=== PATIENT | female | born 1955 | race American Indian/Alaskan Native ===

== ENCOUNTER 2017-06-02 14:39 | Emergency (ER) | payer MEDICARE ==
[~2017-06-02 14:39] MED LIST: PROVERA PO ONE
[2017-06-02 16:52] LABS: Mean Corpuscular HGB Conc 30 % (30-34); Mean Corpuscular Hemoglobin 27 pg (28-32); Mean Corpuscular Volume 90 fl (79-97); Platelet Count 294 K/mm3 (140-440); Red Blood Count 3.88 M/mm3 (3.65-5.03); Red Cell Distribution Width 19.5 % (13.2-15.2)
[2017-06-02 17:24] LABS: Hematocrit 34.8 % (30.3-42.9); Hemoglobin 10.4 gm/dl (10.1-14.3)
--- NOTE | 2017-06-02 20:11 | Emergency Department Report ---
ED Female HPI - General Chief complaint: Vaginal Bleeding Stated complaint: VAGINAL BLEEDING Time Seen by Provider: 06/02/17 20:00 Source: patient Mode of arrival: Wheelchair Limitations: No Limitations - History of Present Illness Initial comments: 62-year-old female past medical history CHF, bilateral nephrectomy ESRD hypertension on dialysis Saturday presents with complaint of heavy vaginal bleeding which started abruptly earlier this afternoon. Patient states she was eating and restaurant when suddenly she developed spontaneous vaginal bleeding. States that she started soaking through her pants one home continued to pass some clots and had some heavy vaginal bleeding which is why she came to the emergency department. Patient states that bleeding has subsided somewhat since earlier this afternoon. Patient is awake alert and oriented 3 not in acute distress denies shortness of breath chest pain or abdominal pain at this time. Patient does not make any urine states she has had bilateral nephrectomies. Patient denies fevers or chills. Patient is fully lucid and able to give me detailed account. Accompanied by at bedside. Patient is not currently sexually active and has not been for several years. Patient states she takes aspirin and gets heparin infusions with dialysis but denies any other anticoagulant use. Denies inserting any foreign bodies into the vagina. States she had an episode similar to this of heavy vaginal bleeding approximately 10 years ago which resolved spontaneously MD Complaint: vaginal bleeding -: This morning Associated Symptoms: vaginal bleeding - Related Data Sexually active: No Home Medications Medication Instructions Recorded Confirmed Last Taken B Complex 11/Folic/C/Biot/Zinc 1 each PO DAILY 05/17/13 02/25/17 05/16/13 [Dialyvite with Zinc Tablet] Previous Rx's Medication Instructions Recorded Last Taken Type Aspirin [Aspirin BABY CHEW TAB] 81 mg PO QDAY #30 tab.chew 02/28/17 Unknown Rx Carvedilol [Coreg] 12.5 mg PO BID #60 tablet 02/28/17 Unknown Rx Cinacalcet HCl [Sensipar] 60 mg PO DAILY #30 tablet 02/28/17 Unknown Rx Sevelamer Carbonate [Renvela] 800 mg PO TIDWM #90 tablet 02/28/17 Unknown Rx amLODIPine [Norvasc] 5 mg PO DAILY #15 tablet 02/28/17 Unknown Rx predniSONE [Deltasone] 40 mg PO QDAY #6 tablet 02/28/17 Unknown Rx medroxyPROGESTERone ACETATE 10 mg PO QDAY #7 tablet 06/03/17 Unknown Rx [Provera] Allergies Allergy/AdvReac Type Severity Reaction Status Date / Time cefazolin sodium [From Ancef] Allergy Rash Verified 05/25/13 08:00 lisinopril Allergy Angioedema Verified 02/25/17 20:06 Penicillins Allergy Rash Verified 05/25/13 08:00 phenytoin sodium Allergy Rash Verified 05/25/13 08:00 [From Dilantin] phenytoin sodium extended Allergy Rash Verified 05/25/13 08:00 [From Dilantin] Sulfa (Sulfonamide Allergy Rash Verified 05/25/13 08:00 Antibiotics) ED Review of Systems ROS: Stated complaint: VAGINAL BLEEDING Other details as noted in HPI Constitutional: denies: chills, fever Eyes: denies: eye pain, eye discharge, vision change ENT: denies: ear pain, throat pain Respiratory: denies: cough, shortness of breath, wheezing Cardiovascular: denies: chest pain, palpitations Endocrine: no symptoms reported Gastrointestinal: denies: abdominal pain, nausea, diarrhea Genitourinary: denies: urgency, dysuria, discharge Musculoskeletal: denies: back pain, joint swelling, arthralgia Skin: denies: rash, lesions Neurological: denies: headache, weakness, paresthesias Psychiatric: denies: anxiety, depression Hematological/Lymphatic: denies: easy bleeding, easy bruising ED Past Medical Hx - Past Medical History Hx Hypertension: Yes Hx Congestive Heart Failure: Yes Hx Renal Disease: Yes (dialysis M-W-F) Hx COPD: Yes - Surgical History Past Surgical History?: Yes Additional Surgical History: bilateral nephrectomy. permacath left chest - Social History Smoking Status: Never Smoker Substance Use Type: None - Medications Home Medications: Home Medications Medication Instructions Recorded Confirmed Last Taken Type B Complex 11/Folic/C/Biot/Zinc 1 each PO DAILY 05/17/13 02/25/17 05/16/13 History [Dialyvite with Zinc Tablet] Aspirin [Aspirin BABY CHEW TAB] 81 mg PO QDAY #30 tab.chew 02/28/17 Unknown Rx Carvedilol [Coreg] 12.5 mg PO BID #60 tablet 02/28/17 Unknown Rx Cinacalcet HCl [Sensipar] 60 mg PO DAILY #30 tablet 02/28/17 Unknown Rx Sevelamer Carbonate [Renvela] 800 mg PO TIDWM #90 tablet 02/28/17 Unknown Rx amLODIPine [Norvasc] 5 mg PO DAILY #15 tablet 02/28/17 Unknown Rx predniSONE [Deltasone] 40 mg PO QDAY #6 tablet 02/28/17 Unknown Rx medroxyPROGESTERone ACETATE 10 mg PO QDAY #7 tablet 06/03/17 Unknown Rx [Provera] ED Physical Exam - General Limitations: No Limitations General appearance: alert, in no apparent distress - Head Head exam: Present: atraumatic, normocephalic - Eye Eye exam: Present: normal appearance, PERRL, EOMI - ENT ENT exam: Present: mucous membranes moist - Neck Neck exam: Present: normal inspection - Respiratory Respiratory exam: Present: normal lung sounds bilaterally. Absent: respiratory distress - Cardiovascular Cardiovascular Exam: Present: regular rate, normal rhythm. Absent: systolic murmur, diastolic murmur, rubs, gallop - GI/Abdominal GI/Abdominal exam: Present: soft, normal bowel sounds - External exam: Present: normal external exam Speculum exam: Present: vaginal bleeding (vaginal bleeding noted on exam of pelvic vault. Clotted blood on removal of speculum. No active hemorrhage) Bi-manual exam: Present: normal bi-manual exam - Extremities Exam Extremities exam: Present: normal inspection - Back Exam Back exam: Present: normal inspection - Neurological Exam Neurological exam: Present: alert, oriented X3 - Psychiatric Psychiatric exam: Present: normal affect, normal mood - Skin Skin exam: Present: warm, dry, intact, normal color. Absent: rash ED Course Vital Signs 06/02/17 06/02/17 06/02/17 14:43 20:02 21:57 Temperature 97.8 F 98.0 F Pulse Rate 71 74 Respiratory 16 18 18 Rate Blood Pressure 181/95 [Left] O2 Sat by Pulse 100 100 Oximetry ED Medical Decision Making - Lab Data Result diagrams: 06/02/17 20:15 06/02/17 20:15 - Medical Decision Making A/P: Heavy vaginal bleeding, spontaneous 1-I discussed case thoroughly with Dr. Perera who also spoke to and examined patient 2-ultrasound is unremarkable. CBC shows patient's H&H has not dropped significantly over 4-[address] Perera this is sufficient to exlude signficant drop in H&H. 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 I also proceeded to discuss case with on-call [facility] doctor Ida Gambino [phone]. As [address] Dr[address] Gambino will give patient trial of Provera to see if this helps with her spontaneous vaginal bleeding. Dr. Perera and I discussed this option with the patient and she agreed to try trial to see if this helps her with episode of abnormal vaginal bleeding. Dr. Perera and I specifically informed the patient that if she is persistently bleeding through more than 1 pad per hour with heavy bleeding she experiences shortness of breath chest pain weakness lightheadedness fevers chills or nausea with associated bleeding to return to the ED ANTONIO. Patient agreed to do so. 4- I emphasized the importance of follow-up with [facility] to the patient Critical care attestation.: If time is entered above; I have spent that time in minutes in the direct care of this critically ill patient, excluding procedure time. ED Disposition Clinical Impression: Episode of heavy vaginal bleeding, Post-menopausal bleeding Disposition: TO HOME OR SELFCARE Is pt being admited?: No Does the pt Need Aspirin: No Condition: Stable Instructions: Menorrhagia (ED), Medroxyprogesterone (By mouth) Prescriptions: medroxyPROGESTERone ACETATE [Provera] 10 mg PO QDAY #7 tablet Referrals: ROD GAMBINO MD [Staff Physician] - 3-5 Days [facility] [Provider Group] - 3-5 Days [facility] [Provider Group] - 3-5 Days Forms: Accompanied Note Time of Disposition: 00:02
[2017-06-02 20:37] LABS: Mean Corpuscular HGB Conc 30 % (30-34); Mean Corpuscular Hemoglobin 26 pg (28-32); Mean Corpuscular Volume 87 fl (79-97); Platelet Count 261 K/mm3 (140-440); Red Blood Count 3.78 M/mm3 (3.65-5.03); Red Cell Distribution Width 19.3 % (13.2-15.2)
[2017-06-02 20:43] LABS: Hematocrit 32.9 % (30.3-42.9); Hemoglobin 9.9 gm/dl (10.1-14.3)
[2017-06-02 20:51] LABS: INR 1.14 (0.87-1.13)
[2017-06-02 20:52] LABS: Partial Thromboplastin Time 33.1 Sec. (24.2-36.6)
[2017-06-02 20:55] LABS: Albumin 3.8 g/dL (3.9-5)
[2017-06-02 20:56] LABS: Alanine Aminotransferase < 5 units/L (7-56); Bilirubin,Direct < 0.2 mg/dL (0-0.2)
[2017-06-02 20:58] LABS: Magnesium 2.4 mg/dL (1.7-2.3)
[2017-06-02 21:13] LABS: Calcium 8.4 mg/dL (8.4-10.2)
[2017-06-02] MEDS ORDERED: ZOFRAN ODT PO ONE (21:24)
[2017-06-02] MEDS ORDERED: NORCO 5/325 PO ONE (21:24)
[2017-06-02 21:50] LABS: Basophils % (Manual) 0 % (0.0-1.8); Total Cells Counted 100
[2017-06-02 21:54] LABS: Anisocytosis 1+; Ovalocytes 1+
[2017-06-02 21:55] LABS: Poikilocytosis 1+; Schistocytes Few
[2017-06-02 21:56] LABS: Platelet Estimate Consistent w Auto; Tear Drop Cells Few
--- NOTE | 2017-06-02 23:23 | Ultrasound Report ---
FINAL REPORT PROCEDURE: Transabdominal pelvic ultrasound. TECHNIQUE: Real-time transabdominal sonography in multiple planes of pelvis was performed with image documentation. This examination was performed without Doppler. Vascular abnormalities, including ovarian torsion, will not be detectable without Doppler evaluation. CPT 96137 HISTORY: Vaginal bleeding. COMPARISON: No prior studies are available for comparison. FINDINGS: Image quality is very limited because the patient's bladder was not distended. The uterus measures approximately 6.1 centimeters x 3.7 centimeters x 3.9 centimeters. The myometrium is grossly normal. The endometrial echo complex is unremarkable. Neither ovary is identified. IMPRESSION: Limited study. Grossly normal uterus.
--- NOTE | 2017-06-02 23:36 | Ultrasound Report ---
FINAL REPORT EXAM: US TRANSVAGINAL HISTORY: heqavy vaginal bleeding sudden onset COMPARISON: Pelvic ultrasound from the same date. TECHNIQUE: Several real-time grayscale and color Doppler images were obtained. Transvaginal exam. FINDINGS: The uterus measures 6.2 x 3.7 x 3.9 centimeters. There distention of the endometrial canal with fluid. Endometrial canal measures up to 10 millimeters in diameter. This is concerning for obstructive lesion more inferiorly within the endocervical canal. Cervical neoplasm is not excluded. Cervix is not well visualized by ultrasound. Correlation with physical exam is needed. There are calcifications scattered throughout the uterus which may relate to vascular calcifications. No discrete uterine lesions otherwise. Left ovary is not visualized. Right ovary measures 2.6 x 1.2 x 2.7 centimeters. No adnexal masses are demonstrated. IMPRESSION: There distention of the endometrial canal with fluid. Endometrial canal measures up to 10 millimeters in diameter. This is concerning for obstructive lesion more inferiorly within the endocervical canal. Cervical neoplasm is not excluded. Cervix is not well visualized by ultrasound. Correlation with physical exam is needed. Right ovary is unremarkable. Left ovary is not visualized. No adnexal masses are demonstrated.
[2017-06-03 00:13] VITALS: BP 181/109
== END 2017-06-03 00:19 | disposition home or self-care (01) ==
LOC: ED 14:39
DX: N95.0 Postmenopausal bleeding (principal); I12.0 Hypertensive chronic kidney disease with stage 5 chronic kidney disease or end stage renal disease; I50.9 Heart failure, unspecified; J44.9 Chronic obstructive pulmonary disease, unspecified; N18.6 End stage renal disease; Z88.8 Allergy status to other drugs, medicaments and biological substances; Z88.2 Allergy status to sulfonamides; Z88.0 Allergy status to penicillin; Z88.6 Allergy status to analgesic agent
CPT/HCPCS: 36415; 76830; 76856; 80048; 80074; 83735; 84100; 85007; 85025; 85027; 85610; 85730; 86850; 86900; 86901; 87210; 87591; Q0162

== ENCOUNTER 2017-09-19 22:55 | Inpatient (IN) | payer MEDICARE ==
[2017-09-19] MEDS ORDERED: ASPIRIN PO ONE (23:34)
[2017-09-20 00:15] LABS: Calcium 9.6 mg/dL (8.4-10.2)
[2017-09-20 01:12] LABS: Basophils # (Auto) 0.1 K/mm3 (0.0-0.1); Basophils % (Auto) 0.8 % (0.0-1.8); Eosinophils # (Auto) 0.1 K/mm3 (0.0-0.4); Eosinophils % (Auto) 1.1 % (0.0-4.3); Lymphocytes # (Auto) 0.8 K/mm3 (1.2-5.4); Lymphocytes % (Auto) 8.2 % (13.4-35.0); Mean Corpuscular HGB Conc 29 % (30-34); Mean Corpuscular Volume 88 fl (79-97); Monocytes # (Auto) 0.7 K/mm3 (0.0-0.8); Monocytes % (Auto) 6.9 % (0.0-7.3); Platelet Count 250 K/mm3 (140-440); Red Blood Count 2.89 M/mm3 (3.65-5.03)
[2017-09-20 01:20] LABS: Chol/HDL Ratio 2.7 %
[2017-09-20 01:21] LABS: Hematocrit 25.5 % (30.3-42.9); Hemoglobin 7.3 gm/dl (10.1-14.3); Mean Corpuscular Hemoglobin 25 pg (28-32); Red Cell Distribution Width 21.1 % (13.2-15.2)
--- NOTE | 2017-09-20 06:39 | Emergency Department Report ---
ED Chest Pain HPI - General Chief Complaint: Chest Pain Stated Complaint: CHEST PAIN Time Seen by Provider: 09/20/17 03:21 Source: patient Mode of arrival: Ambulatory Limitations: No Limitations - History of Present Illness Initial Comments: Patient said she has been having chest pain on and off for the past 1 month. MD Complaint: chest pain -: Gradual Onset: during rest Pain Location: substernal, left chest Severity: moderate Severity scale (0 -10): 7 Quality: heaviness Consistency: constant Improves With: nothing Worsens With: nothing re: denies: nausea, vomting, diaphoresis Other Symptoms: denies: cough Treatments Prior to Arrival: none Aspirin use within the Past 7 Days: (1) Yes - Related Data On Oral Contraceptives: No Home Medications Medication Instructions Recorded Confirmed Last Taken Carvedilol [Coreg] 25 mg PO BID 08/30/17 08/30/17 Unknown Megestrol [Megace] 20 mg PO BID 08/30/17 08/30/17 Unknown Sevelamer Carbonate [Renvela] 3,200 mg PO TID 08/30/17 08/30/17 Unknown Vit B Comp No.3/Folic/C/Biotin 1 each PO DAILY 08/30/17 08/30/17 Unknown [Hand Cloth Folder-Romero Rx Tablet] amLODIPine [Norvasc] 10 mg PO DAILY 08/30/17 08/30/17 Unknown cloNIDine [Catapres] 0.2 mg PO BID 08/30/17 08/30/17 Unknown Previous Rx's Medication Instructions Recorded Last Taken Type Aspirin [Aspirin BABY CHEW TAB] 81 mg PO QDAY #30 tab.chew 02/28/17 Unknown Rx Acetaminophen [Acetaminophen TAB] 650 mg PO Q4H PRN tablet 09/18/17 Unknown Rx Bisacodyl [Dulcolax suppos] 10 mg VT QDAY supp.rect 09/18/17 Unknown Rx Carvedilol [Coreg] 25 mg PO BID tablet 09/18/17 Unknown Rx Docusate Sodium [Colace CAP] 100 mg PO BID capsule 09/18/17 Unknown Rx Famotidine [Pepcid] 20 mg PO QDAY tablet 09/18/17 Unknown Rx ISOSORBIDE MONOnitrate [Imdur ER] 30 mg PO QDAY tablet 09/18/17 Unknown Rx NIFEdipine XL [Procardia Xl] 90 mg PO QDAY tablet 09/18/17 Unknown Rx Nitroglycerin [Nitrostat] 0.4 mg SL .Q5MIN PRN tablet 09/18/17 Unknown Rx Polyethylene Glycol 3350 [Miralax 17 gm PO BID powd.pack 09/18/17 Unknown Rx 3350] cloNIDine [Catapres] 0.3 mg PO BID tablet 09/18/17 Unknown Rx diphenhydrAMINE [Benadryl CAP] 25 mg PO Q6H PRN capsule 09/18/17 Unknown Rx Allergies Allergy/AdvReac Type Severity Reaction Status Date / Time cefazolin sodium [From Ancef] Allergy Rash Verified 05/25/13 08:00 lisinopril Allergy Angioedema Verified 02/25/17 20:06 Penicillins Allergy Rash Verified 05/25/13 08:00 phenytoin sodium Allergy Rash Verified 05/25/13 08:00 [From Dilantin] phenytoin sodium extended Allergy Rash Verified 05/25/13 08:00 [From Dilantin] Sulfa (Sulfonamide Allergy Rash Verified 05/25/13 08:00 Antibiotics) Heart Score - HEART Score History: Highly suspicious EKG: Non-specific Age: 45-65 Risk factors: > 3 risk factors or hx of atherosclerotic disease Troponin: 1-3x normal limit HEART Score: 7 - Critical Actions Critical Actions: >7 pts:50-65% risk of adverse cardiac event. Early invasive measures ED Review of Systems ROS: Stated complaint: CHEST PAIN Other details as noted in HPI Comment: All other systems reviewed and negative Constitutional: denies: chills, fever Eyes: denies: eye pain, vision change ENT: denies: ear pain Respiratory: shortness of breath. denies: cough Cardiovascular: chest pain, dyspnea on exertion. denies: palpitations Endocrine: no symptoms reported Gastrointestinal: denies: abdominal pain, nausea, vomiting, diarrhea Genitourinary: denies: dysuria, frequency, hematuria Musculoskeletal: denies: back pain, joint swelling Skin: denies: rash, change in color Neurological: denies: headache, weakness, numbness Psychiatric: denies: anxiety, depression Hematological/Lymphatic: denies: easy bruising ED Past Medical Hx - Past Medical History Previous Medical History?: Yes Hx Hypertension: Yes Hx Congestive Heart Failure: Yes Hx Diabetes: No Hx Renal Disease: Yes (dialysis M-W-F) Hx Asthma: No Hx COPD: No - Surgical History Past Surgical History?: Yes Additional Surgical History: bilateral nephrectomy. permacath left chest - Social History Smoking Status: Former Smoker Substance Use Type: None - Medications Home Medications: Home Medications Medication Instructions Recorded Confirmed Last Taken Type Aspirin [Aspirin BABY CHEW TAB] 81 mg PO QDAY #30 tab.chew 02/28/17 08/30/17 Unknown Rx Carvedilol [Coreg] 25 mg PO BID 08/30/17 08/30/17 Unknown History Megestrol [Megace] 20 mg PO BID 08/30/17 08/30/17 Unknown History Sevelamer Carbonate [Renvela] 3,200 mg PO TID 08/30/17 08/30/17 Unknown History Vit B Comp No.3/Folic/C/Biotin 1 each PO DAILY 08/30/17 08/30/17 Unknown History [Hand Cloth Folder-Romero Rx Tablet] amLODIPine [Norvasc] 10 mg PO DAILY 08/30/17 08/30/17 Unknown History cloNIDine [Catapres] 0.2 mg PO BID 08/30/17 08/30/17 Unknown History Acetaminophen [Acetaminophen TAB] 650 mg PO Q4H PRN tablet 09/18/17 Unknown Rx Bisacodyl [Dulcolax suppos] 10 mg VT QDAY supp.rect 09/18/17 Unknown Rx Carvedilol [Coreg] 25 mg PO BID tablet 09/18/17 Unknown Rx Docusate Sodium [Colace CAP] 100 mg PO BID capsule 09/18/17 Unknown Rx Famotidine [Pepcid] 20 mg PO QDAY tablet 09/18/17 Unknown Rx ISOSORBIDE MONOnitrate [Imdur ER] 30 mg PO QDAY tablet 09/18/17 Unknown Rx NIFEdipine XL [Procardia Xl] 90 mg PO QDAY tablet 09/18/17 Unknown Rx Nitroglycerin [Nitrostat] 0.4 mg SL .Q5MIN PRN tablet 09/18/17 Unknown Rx Polyethylene Glycol 3350 [Miralax 17 gm PO BID powd.pack 09/18/17 Unknown Rx 3350] cloNIDine [Catapres] 0.3 mg PO BID tablet 09/18/17 Unknown Rx diphenhydrAMINE [Benadryl CAP] 25 mg PO Q6H PRN capsule 09/18/17 Unknown Rx ED Physical Exam - General Limitations: No Limitations General appearance: alert, in no apparent distress - Head Head exam: Present: atraumatic, normocephalic, normal inspection - Eye Eye exam: Present: normal appearance, PERRL, EOMI, other (Pale conjunctivae) Pupils: Present: normal accommodation - ENT ENT exam: Present: normal exam, normal orophraynx, mucous membranes moist - Neck Neck exam: Present: normal inspection, full ROM - Respiratory Respiratory exam: Present: normal lung sounds bilaterally. Absent: respiratory distress - Cardiovascular Cardiovascular Exam: Present: regular rate, systolic murmur, S3 - GI/Abdominal GI/Abdominal exam: Present: soft, normal bowel sounds. Absent: distended, tenderness, guarding, rebound - Rectal Rectal exam: Present: deferred - Extremities Exam Extremities exam: Present: normal inspection, normal capillary refill - Back Exam Back exam: Present: full ROM - Neurological Exam Neurological exam: Present: alert, oriented X3, CN II-XII intact - Psychiatric Psychiatric exam: Present: normal affect, normal mood - Skin Skin exam: Present: warm, dry, intact, pallor ED Course Vital Signs 09/19/17 09/20/17 09/20/17 23:21 03:10 03:23 Temperature 97.8 F 98.4 F Pulse Rate 76 77 Respiratory 12 16 Rate Blood Pressure 97/56 99/57 Blood Pressure 99/59 [Right] O2 Sat by Pulse 100 94 Oximetry 09/20/17 09/20/17 09/20/17 03:30 04:00 04:30 Temperature Pulse Rate 79 76 74 Respiratory 18 20 17 Rate Blood Pressure 101/65 112/70 109/65 Blood Pressure [Right] O2 Sat by Pulse 97 95 100 Oximetry 09/20/17 09/20/17 09/20/17 05:00 05:30 06:00 Temperature Pulse Rate 77 79 81 Respiratory 18 20 22 Rate Blood Pressure 111/65 113/67 117/71 Blood Pressure [Right] O2 Sat by Pulse 99 99 96 Oximetry 09/20/17 09/20/17 06:30 07:00 Temperature Pulse Rate 78 76 Respiratory 19 11 L Rate Blood Pressure 122/69 122/70 Blood Pressure [Right] O2 Sat by Pulse 95 96 Oximetry - Reevaluation(s) Reevaluation #1: 09/20/17 07:04 I consulted the rehabilitation team lead control systems engineer Dr Alva. he wants patient admitted by the hospitalist and he will come and evaluate patient this morning. Reevaluation #2: 09/20/17 07:48 I consulted the decorating supervisor on-call Dr. Samina Banerjee. He was dialyzed patient this morning and give blood transfusion during dialysis. Reevaluation #3: 09/20/17 07:49 I discussed patient care with the hospitalist control systems engineer Dr. Yvon Muniz. He will admit patient to the hospital for further evaluation and management. MORTEZA score - Morteza Score Age > 65: (0) No Aspirin use within the Past 7 Days: (1) Yes 3 or more CAD Risk Factors: (1) Yes 2 or more Angina events in past 24 hrs: (1) Yes Known CAD with more than 50% Stenosis: (0) No Elevated Cardiac Markers: (1) Yes ST Deviation Greater than 0.5mm: (0) No MORTEZA Score: 4 ED Medical Decision Making - Lab Data Result diagrams: 09/19/17 23:36 09/20/17 00:01 - EKG Data -: EKG Interpreted by Me Rate: normal (74) - EKG Data When compared to previous EKG there are: previous EKG unavailable Interpretation: nonspecific ST-T wave scott, other (Q waves v1 to V3. Accelerated junctional rhythm. No STEMI.) - Radiology Data Radiology results: report reviewed, image reviewed - Medical Decision Making Chest Pain. Anemia. Critical Care Time: Yes Critical care time in (mins) excluding proc time.: 45 Critical care attestation.: If time is entered above; I have spent that time in minutes in the direct care of this critically ill patient, excluding procedure time. ED Disposition Clinical Impression: NSTEMI (non-ST elevated myocardial infarction), Symptomatic anemia, End stage renal disease Chest pain Qualifiers: Chest pain type: unspecified Qualified Code(s): R07.9 - Chest pain, unspecified Disposition: -09 OP ADMIT IP TO THIS HOSP Is pt being admited?: Yes Does the pt Need Aspirin: Yes Condition: Stable Instructions: Chest Pain (ED) Referrals: PRIMARY CARE,MD [Primary Care Provider] - 3-5 Days
[2017-09-20] MEDS ORDERED: ASPIRIN ONE (06:55)
[2017-09-20 07:09] LABS: INR 1.17 (0.87-1.13); Partial Thromboplastin Time 34.7 Sec. (24.2-36.6)
[2017-09-20] MEDS ORDERED: NACL 0.9% 100 ML IV PRN (07:38)
[2017-09-20] MEDS ORDERED: TYLENOL PO PRN (09:35)
[2017-09-20] MEDS ORDERED: HEPARIN 10,000 UNITS/10 ML IV ONE (09:35)
[2017-09-20] MEDS ORDERED: ZOFRAN IV PRN (09:35)
[2017-09-20] MEDS ORDERED: MORPHINE IV PRN (09:35)
[2017-09-20] MEDS ORDERED: SODIUM CHLORIDE FLUSH SYRINGE 10 ML IV PRN (09:35)
[2017-09-20] MEDS ORDERED: NITROSTAT SL PRN (09:35)
--- NOTE | 2017-09-20 09:44 | History and Physical Report ---
History of Present Illness Date of examination: 09/20/17 Chief complaint: chest pain History of present illness: This is a 62 YO female with a past medical history significant for ESRD on HD ( MWF), NI/cardiomyopathy with now normalized EF, recurrent chest pain, HTN, past tobacco use, undergoing evaluation for vaginal bleeding presumably secondary to cervical cancer presented with c/o of heavy recurrent vaginal bleeding and chest pain since yesterday. Of note, pt was recently discharged from [facility] on following evaluation for possible cervical cancer, vaginal bleeding, chest pain and right pleural effusion which required thoracentesis. Pt describes her chest pain as an intermittent, nonexertional, nonradiating, right sided pain which is aggravated by deep inspiration. There was no associated palpitations, nausea or vomiting but she admits to shortness of breath. Patient had a stress thallium last month during the admission and had a small fixed anterior wall defect and a medium sized partially reversible inferior wall defect suggestive of mild ischemia. Following arrival, pt was noted to be severely anemic with H/H 7.3/25.5 and she is currently receiving PRBC tx during dialysis. Her troponins are also elevated. Past History Past Medical History: CAD, cancer, dialysis, ESRD, heart failure, hypertension Past Surgical History: Other (permacath placement, AV fistula placement) Social history: , lives with family (Lives with ), smoking (former ). denies: alcohol abuse, prescription drug abuse Family history: hypertension, other (father had congestive heart failure and end -stage disease before he ) Review of System: Constitutional: no fever, no chills, no weight loss Ears, eyes, nose, mouth and throat: no nasal congestion, no nasal discharge, no sinus pressure, no vision change, no red eye. Neck: No neck pain or rigidity. Cardiovascular: No chest pain, no orthopnea, no palpitations, no leg swelling Respiratory: No shortness of breath, no cough, no congestion, no wheezing Gastrointestinal: no abdominal pain, no nausea, no vomiting Genitourinary : no dysuria, no hematuria Musculoskeletal: no joint swelling or muscle ache Integumentary: no rash, no pruritis Neurological: no parathesias, no numbness, no tingling Endocrine: no cold or heat intolerance, no polyuria or polydipsia Hematologic/Lymphatic: no easy bruising, + vaginal bleeding, no gland swelling Allergic/Immunologic: no urticaria, no angioedema. Medications and Allergies Allergies Allergy/AdvReac Type Severity Reaction Status Date / Time cefazolin sodium [From Ancef] Allergy Rash Verified 05/25/13 08:00 lisinopril Allergy Angioedema Verified 02/25/17 20:06 Penicillins Allergy Rash Verified 05/25/13 08:00 phenytoin sodium Allergy Rash Verified 05/25/13 08:00 [From Dilantin] phenytoin sodium extended Allergy Rash Verified 05/25/13 08:00 [From Dilantin] Sulfa (Sulfonamide Allergy Rash Verified 05/25/13 08:00 Antibiotics) Home Medications Medication Instructions Recorded Confirmed Last Taken Type Aspirin [Aspirin BABY CHEW TAB] 81 mg PO QDAY #30 tab.chew 02/28/17 09/20/17 Unknown Rx Carvedilol [Coreg] 25 mg PO BID 08/30/17 09/20/17 Unknown History Megestrol [Megace] 20 mg PO BID 08/30/17 09/20/17 Unknown History Sevelamer Carbonate [Renvela] 3,200 mg PO TID 08/30/17 09/20/17 Unknown History Vit B Comp No.3/Folic/C/Biotin 1 each PO DAILY 08/30/17 09/20/17 Unknown History [Assistant Baseball Coach-Romero Rx Tablet] amLODIPine [Norvasc] 10 mg PO DAILY 08/30/17 09/20/17 Unknown History Acetaminophen [Acetaminophen TAB] 650 mg PO Q4H PRN tablet 09/18/17 09/20/17 Unknown Rx Bisacodyl [Dulcolax suppos] 10 mg ND QDAY supp.rect 09/18/17 09/20/17 Unknown Rx Docusate Sodium [Colace CAP] 100 mg PO BID capsule 09/18/17 09/20/17 Unknown Rx Famotidine [Pepcid] 20 mg PO QDAY tablet 09/18/17 09/20/17 Unknown Rx ISOSORBIDE MONOnitrate [Imdur ER] 30 mg PO QDAY tablet 09/18/17 09/20/17 Unknown Rx NIFEdipine XL [Procardia Xl] 90 mg PO QDAY tablet 09/18/17 09/20/17 Unknown Rx Nitroglycerin [Nitrostat] 0.4 mg SL .Q5MIN PRN tablet 09/18/17 09/20/17 Unknown Rx Polyethylene Glycol 3350 [Miralax 17 gm PO BID powd.pack 09/18/17 09/20/17 Unknown Rx 3350] cloNIDine [Catapres] 0.3 mg PO BID tablet 09/18/17 09/20/17 Unknown Rx diphenhydrAMINE [Benadryl CAP] 25 mg PO Q6H PRN capsule 09/18/17 09/20/17 Unknown Rx Active Meds: Active Medications Sodium Chloride (Nacl 0.9%) 100 mls @ 999 mls/hr IV IVONNE PRN PRN Reason: Hypotension Exam - Physical Exam Narrative exam: GENERAL: elderly AAF lying on bed appeared to be in no discomfort. HEENT: Normocephalic. Atraumatic. No conjunctival congestion or icterus. Patient has moist mucous membranes. NECK: Supple. Trachea midline. CHEST/LUNGS: Clear to auscultated bilaterally, breathing nonlabored. No wheezes crackles or rhonchi. HEART/CARDIOVASCULAR: Regular in rate and rhythm. S1 and S2 positive. ABDOMEN: Abdomen is soft, nontender. Patient has normal bowel sounds. SKIN: There is no rash. Warm and dry. NEURO: No focal motor deficit. Follows command. MUSCULOSKELETAL: No joint effusion or tenderness. EXTRIMITY: No edema, no cyanosis or clubbing. PSYCH: Cooperative. - Constitutional Vitals: Temp Pulse Resp BP Pulse Ox 98.4 F 74 14 126/89 100 09/20/17 07:26 09/20/17 08:40 09/20/17 08:40 09/20/17 08:40 09/20/17 08:40 Results - Labs CBC & Chem 7: 09/20/17 09:57 09/20/17 00:01 Labs: Abnormal lab results 09/19/17 09/20/17 09/20/17 Range/Units 23:36 00:01 02:45 RBC 2.89 L (3.65-5.03) M/mm3 Hgb 7.3 L (10.1-14.3) gm/dl Hct 25.5 L (30.3-42.9) % MCH 25 L (28-32) pg MCHC 29 L (30-34) % RDW 21.1 H (13.2-15.2) % Lymph % (Auto) 8.2 L (13.4-35.0) % Lymph # 0.8 L (1.2-5.4) K/mm3 Seg Neutrophils % 83.0 H (40.0-70.0) % Seg Neutrophils # 8.7 H (1.8-7.7) K/mm3 PT (12.2-14.9) Sec. INR (0.87-1.13) Sodium 131 L (137-145) mmol/L Chloride 91.6 L (98-107) mmol/L BUN 34 H (7-17) mg/dL Creatinine 5.4 H (0.7-1.2) mg/dL Troponin T 0.087 H 0.106 H* D (0.00-0.029) ng/mL LDL Cholesterol Direct 40 L (50-130) mg/dL HDL Cholesterol 34 L (40-59) mg/dL Crossmatch 09/20/17 09/20/17 09/20/17 Range/Units 06:45 06:47 06:50 RBC (3.65-5.03) M/mm3 Hgb (10.1-14.3) gm/dl Hct (30.3-42.9) % MCH (28-32) pg MCHC (30-34) % RDW (13.2-15.2) % Lymph % (Auto) (13.4-35.0) % Lymph # (1.2-5.4) K/mm3 Seg Neutrophils % (40.0-70.0) % Seg Neutrophils # (1.8-7.7) K/mm3 PT 15.6 H (12.2-14.9) Sec. INR 1.17 H (0.87-1.13) Sodium (137-145) mmol/L Chloride (98-107) mmol/L BUN (7-17) mg/dL Creatinine (0.7-1.2) mg/dL Troponin T 0.101 H* (0.00-0.029) ng/mL LDL Cholesterol Direct (50-130) mg/dL HDL Cholesterol (40-59) mg/dL Crossmatch See Detail - Imaging and Cardiology Chest x-ray: image reviewed Assessment and Plan Chest pain, atypical - cont aspitin, statin, coreg -CT chest on prior admission did show lung nodules, involving the ribs, most likely the cause of the chest pain -stress test during prior admission showed small reversible defect; - cardiology consulted in the ER , will follow recommendation NSTEMI type 2 - could be from ESRD and demand ischemis - cont to trend troponin, no heparin for ongoing vaginal bleed 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 Alejo 09/12 morning and he states cervix grossly looks like cervical cancer,official pathology report was pending on discharge. - f/u with Dr. Luis Anemia with post menopausal Vaginal bleed - concern for gynecological malignancy that has now possibly metastasized to her lungs and ribs. - Pap smear done 09/12/17, likely from cervical cancer - monitor h/h,transfuse 1 unitvtoday with HD Chronic Right pleural effusion - s/p thoracenthesis on 09/07/17 drained 950 cc Hypertension Optimize blood pressure medications as needed CHF Chronic, does not appear to be an exacerbation -Had chronic Rt pleural effusion, s/p thoracentesis on 09/07/17 End-stage renal disease Continue hemodialysis as per Paying Teller Poor appetite with failure to thrive: consult dietary Full code status
[2017-09-20] MEDS ORDERED: NACL 0.9% 500 ML 500 ML IV ONE (09:51)
[2017-09-20] MEDS ORDERED: HEPARIN/ 0.45% NACL-25,000 UNIT/500 ML 25,000 UNIT/500 ML BAG IV SCH (10:00)
[2017-09-20 10:11] LABS: Hematocrit 23.8 % (30.3-42.9); Hemoglobin 7.2 gm/dl (10.1-14.3)
[2017-09-20 10:49] LABS: INR 1.17 (0.87-1.13)
[2017-09-20] MEDS ORDERED: ZOFRAN ONE (12:05)
--- NOTE | 2017-09-20 12:42 | Consultation ---
History of Present Illness Consult date: 09/20/17 Requesting physician: MISHEL HOUSER Consult reason: chest pain History of present illness: The pt is a 62 YO female with a past medical history significant for cervical cancer, ESRD on HD (MWF), NI/cardiomyopathy with now normalized EF, heart failure, anomalous origin of RCA, mild CAD, recurrent chest pain, HTN, past tobacco use. Pt presented with c/o of heavy vaginal bleeding for the past 1 month and chest pain since yesterday. Of note, pt was recently discharged from [facility] on 09/18/2017 following evaluation and treatment of cervical cancer, vaginal bleeding, chest pain and right pleural effusion which required thoracentesis. Pt describes her chest pain as an intermittent, nonexertional, nonradiating, right sided pain which is aggravated by deep inspiration. Following arrival, pt was noted to be severely anemic with H/H 7.3/25.5 and she is currently receiving PRBC tx during dialysis. Her troponins are also elevated. Lexiscan MPI stress test done 08/2017 revealed a small fixed anterior wall defect. There was also a medium size, partially reversible inferior wall defect suggestive of mild ischemia. Gated SPECT imaging revealed an ejection fraction of 69%. At that time, with only mild ischemia demonstrated on her nuclear scan, with history of nonobstructive CAD and multiple comorbid issues, she was managed medically. Echo done 02/2017 showed EF 55-60%, impaired relaxation, trace AR, trace MR, mild TR, minimal pericardial effusion. LHC done 04/2013 showed mild CAD, anomalous origin of the RCA. Past History Past Medical History: CAD, cancer, dialysis, ESRD, heart failure, hypertension Social history: smoking (former). denies: alcohol abuse, prescription drug abuse Medications and Allergies Allergies Allergy/AdvReac Type Severity Reaction Status Date / Time cefazolin sodium [From Ancef] Allergy Rash Verified 05/25/13 08:00 lisinopril Allergy Angioedema Verified 02/25/17 20:06 Penicillins Allergy Rash Verified 05/25/13 08:00 phenytoin sodium Allergy Rash Verified 05/25/13 08:00 [From Dilantin] phenytoin sodium extended Allergy Rash Verified 05/25/13 08:00 [From Dilantin] Sulfa (Sulfonamide Allergy Rash Verified 05/25/13 08:00 Antibiotics) Home Medications Medication Instructions Recorded Confirmed Last Taken Type Aspirin [Aspirin BABY CHEW TAB] 81 mg PO QDAY #30 tab.chew 02/28/17 09/20/17 Unknown Rx Carvedilol [Coreg] 25 mg PO BID 08/30/17 09/20/17 Unknown History Megestrol [Megace] 20 mg PO BID 08/30/17 09/20/17 Unknown History Sevelamer Carbonate [Renvela] 3,200 mg PO TID 08/30/17 09/20/17 Unknown History Vit B Comp No.3/Folic/C/Biotin 1 each PO DAILY 08/30/17 09/20/17 Unknown History [Real Estate Operations Manager-Romero Rx Tablet] amLODIPine [Norvasc] 10 mg PO DAILY 08/30/17 09/20/17 Unknown History Acetaminophen [Acetaminophen TAB] 650 mg PO Q4H PRN tablet 09/18/17 09/20/17 Unknown Rx Bisacodyl [Dulcolax suppos] 10 mg MN QDAY supp.rect 09/18/17 09/20/17 Unknown Rx Docusate Sodium [Colace CAP] 100 mg PO BID capsule 09/18/17 09/20/17 Unknown Rx Famotidine [Pepcid] 20 mg PO QDAY tablet 09/18/17 09/20/17 Unknown Rx ISOSORBIDE MONOnitrate [Imdur ER] 30 mg PO QDAY tablet 09/18/17 09/20/17 Unknown Rx NIFEdipine XL [Procardia Xl] 90 mg PO QDAY tablet 09/18/17 09/20/17 Unknown Rx Nitroglycerin [Nitrostat] 0.4 mg SL .Q5MIN PRN tablet 09/18/17 09/20/17 Unknown Rx Polyethylene Glycol 3350 [Miralax 17 gm PO BID powd.pack 09/18/17 09/20/17 Unknown Rx 3350] cloNIDine [Catapres] 0.3 mg PO BID tablet 09/18/17 09/20/17 Unknown Rx diphenhydrAMINE [Benadryl CAP] 25 mg PO Q6H PRN capsule 09/18/17 09/20/17 Unknown Rx Active Meds: Active Medications Acetaminophen (Tylenol) 650 mg PO Q4H PRN PRN Reason: Pain MILD(1-3)/Fever >100.5/DURAND Aspirin (Ecotrin) 325 mg PO QDAY LANEY Atorvastatin Calcium (Lipitor) 80 mg PO QHS [facility] Carvedilol (Coreg) 3.125 mg PO BID [facility] Famotidine (Pepcid) 10 mg IV BID [facility] Sodium Chloride (Nacl 0.9%) 100 mls @ 999 mls/hr IV IVONNE PRN PRN Reason: Hypotension Heparin Sodium/Sodium Chloride (Heparin/ 0.45% Nacl-25,000 Unit/500 Ml) 25,000 unit in 500 mls @ 18 mls/hr IV TITRATE LANEY; Protocol Morphine Sulfate (Morphine) 2 mg IV Q4H PRN PRN Reason: Pain, Moderate (4-6) Nitroglycerin (Nitrostat) 0.4 mg SL .Q5MIN PRN PRN Reason: Chest Pain Ondansetron HCl (Zofran) 4 mg IV Q8H PRN PRN Reason: Nausea And Vomiting Sodium Chloride (Sodium Chloride Flush Syringe 10 Ml) 10 ml IV BID [facility] Sodium Chloride (Sodium Chloride Flush Syringe 10 Ml) 10 ml IV PRN PRN PRN Reason: LINE FLUSH Review of Systems Constitutional: no weight loss, no weight gain, no fever, no chills, no sweats Ears, nose, mouth and throat: no ear pain, no nose pain, no sinus pressure, no sinus pain Cardiovascular: chest pain, high blood pressure, no orthopnea, no palpitations, no rapid/irregular heart beat, no edema, no syncope, no lightheadedness, no shortness of breath, no dyspnea on exertion, no leg edema Respiratory: no cough, no shortness of breath, no dyspnea on exertion, no congestion, no wheezing, no pain on inspiration Gastrointestinal: no abdominal pain, no nausea, no vomiting, no diarrhea, no constipation, no change in bowel habits Genitourinary Female: abnormal vaginal bleeding Musculoskeletal: no neck stiffness, no neck pain Integumentary: no rash, no pruritis, no redness, no sores, no wounds Neurological: no head injury, no paralysis, no weakness, no parathesias, no numbness, no tingling, no seizures Psychiatric: no anxiety Endocrine: no cold intolerance, no heat intolerance Hematologic/Lymphatic: no easy bruising, no easy bleeding Allergic/Immunologic: no urticaria, no wheezing, no persistent infections Physical Examination Vital Signs Temp Pulse Resp BP Pulse Ox 97.8 F 76 12 97/56 100 09/19/17 23:21 09/19/17 23:21 09/19/17 23:21 09/19/17 23:21 09/19/17 23:21 General appearance: no acute distress HEENT: Positive: PERRL, Normocephaly, Mucus Membranes Moist Neck: Positive: neck supple, trachea midline Cardiac: Positive: Reg Rate and Rhythm, S1/S2, Systolic Murmur Lungs: Positive: clear to auscultation Neuro: Positive: Grossly Intact, Cranial Nerve 2-12 Intact Abdomen: Positive: Soft. Negative: Tender Skin: Positive: Clear. Negative: Rash, Wound Musculoskeletal: No Fluid Collection, No Pain, Normal Range of Motion Extremities: Absent: edema Results 09/20/17 09:57 09/20/17 00:01 Coagulation 09/20/17 09/20/17 Range/Units 06:45 10:33 PT 15.6 H 15.6 H (12.2-14.9) Sec. INR 1.17 H 1.17 H (0.87-1.13) APTT 34.7 32.0 (24.2-36.6) Sec. Lipids 09/20/17 Range/Units 00:01 Triglycerides 70 (2-149) mg/dL Cholesterol 92 (50-199) mg/dL HDL Cholesterol 34 L (40-59) mg/dL Cholesterol/HDL Ratio 2.70 % CBC 09/19/17 09/20/17 Range/Units 23:36 09:57 WBC 10.4 (4.5-11.0) K/mm3 RBC 2.89 L (3.65-5.03) M/mm3 Hgb 7.3 L 7.2 L (10.1-14.3) gm/dl Hct 25.5 L 23.8 L (30.3-42.9) % Plt Count 250 306 (140-440) K/mm3 Lymph # 0.8 L (1.2-5.4) K/mm3 [place] # 0.7 (0.0-0.8) K/mm3 Eos # 0.1 (0.0-0.4) K/mm3 Baso # 0.1 (0.0-0.1) K/mm3 Comprehensive Metabolic Panel 09/20/17 Range/Units 00:01 Sodium 131 L (137-145) mmol/L Potassium 4.5 (3.6-5.0) mmol/L Chloride 91.6 L (98-107) mmol/L Carbon Dioxide 24 (22-30) mmol/L BUN 34 H (7-17) mg/dL Creatinine 5.4 H (0.7-1.2) mg/dL Glucose 86 (65-100) mg/dL Calcium 9.6 (8.4-10.2) mg/dL - Imaging and Cardiology Echo: report reviewed (02/2017 showed EF 55-60%, impaired relaxation, trace AR, trace MR, mild TR, minimal pericardial effusion. 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 ) EKG: report reviewed, image reviewed EKG interpretations - Telemetry EKG Rhythm: Sinus Rhythm - EKG Sinus rhythms and dysrhythmias: sinus rhythm Assessment and Plan Assessment: Cervical CA / vaginal bleeding Anemia NSTEMI type II - ECG with no acute ischemic changes H/o abnormal nuclear stress test Nonobstructive CAD / anomalous RCA ESRD on HD H/o NI/cardiomyopathy - now with normalized EF HTN Pulmonary lesions - Lung nodules and abnormalities associated with the ribs, possible metastases Plan: PRBC tx per primary. D/c heparin gtt given active bleeding. Agree with ASA, statin, coreg. Optimize anti-ischemic regimen as tolerated and if chest pain persists, may consider repeat ischemic evaluation once medically stabilized. Assessment and plan reviewed with pt at [facility]. The patient has been seen in conjunction with Dr. MURALI Norton who agrees with the assessment and plan of care.
--- NOTE | 2017-09-20 18:01 | Consultation ---
History of Present Illness - Reason for Consult Consult date: 09/20/17 end stage renal disease Requesting physician: MISHEL HOUSER - History of Present Illness 62-year-old lady who is well-known to me with a history of ESRD undergoing evaluation for vaginal bleeding presumably secondary to cervical cancer. Histology is pending. Discharge from the hospital a few days ago to [facility] subacute rehabilitation. Presents back because of chest pain on and off which got worse following discharge. It is substernal/left chest heaviness which is now constant of moderate to severe intensity, present at rest with no known aggravating or relieving factors other than hydrocodone. There was no associated palpitations, nausea or vomiting but she admits to shortness of breath. Patient had a stress thallium last month during the admission and had a small fixed anterior wall defect and a medium sized partially reversible inferior wall defect suggestive of mild ischemia. Past History Past Medical History: CAD, cancer, dialysis, ESRD, heart failure, hypertension Past Surgical History: Other (permacath placement, AV fistula placement) Social history: , lives with family (Lives with ), smoking (former ). denies: alcohol abuse, prescription drug abuse Family history: hypertension, other (father had congestive heart failure and end -stage disease before he ) Medications and Allergies Allergies Allergy/AdvReac Type Severity Reaction Status Date / Time cefazolin sodium [From Ancef] Allergy Rash Verified 05/25/13 08:00 lisinopril Allergy Angioedema Verified 02/25/17 20:06 Penicillins Allergy Rash Verified 05/25/13 08:00 phenytoin sodium Allergy Rash Verified 05/25/13 08:00 [From Dilantin] phenytoin sodium extended Allergy Rash Verified 05/25/13 08:00 [From Dilantin] Sulfa (Sulfonamide Allergy Rash Verified 05/25/13 08:00 Antibiotics) Home Medications Medication Instructions Recorded Confirmed Last Taken Type Aspirin [Aspirin BABY CHEW TAB] 81 mg PO QDAY #30 tab.chew 02/28/17 09/20/17 Unknown Rx Carvedilol [Coreg] 25 mg PO BID 08/30/17 09/20/17 Unknown History Megestrol [Megace] 20 mg PO BID 08/30/17 09/20/17 Unknown History Sevelamer Carbonate [Renvela] 3,200 mg PO TID 08/30/17 09/20/17 Unknown History Vit B Comp No.3/Folic/C/Biotin 1 each PO DAILY 08/30/17 09/20/17 Unknown History [Water Restoration Technician-Romero Rx Tablet] amLODIPine [Norvasc] 10 mg PO DAILY 08/30/17 09/20/17 Unknown History Acetaminophen [Acetaminophen TAB] 650 mg PO Q4H PRN tablet 09/18/17 09/20/17 Unknown Rx Bisacodyl [Dulcolax suppos] 10 mg MS QDAY supp.rect 09/18/17 09/20/17 Unknown Rx Docusate Sodium [Colace CAP] 100 mg PO BID capsule 09/18/17 09/20/17 Unknown Rx Famotidine [Pepcid] 20 mg PO QDAY tablet 09/18/17 09/20/17 Unknown Rx ISOSORBIDE MONOnitrate [Imdur ER] 30 mg PO QDAY tablet 09/18/17 09/20/17 Unknown Rx NIFEdipine XL [Procardia Xl] 90 mg PO QDAY tablet 09/18/17 09/20/17 Unknown Rx Nitroglycerin [Nitrostat] 0.4 mg SL .Q5MIN PRN tablet 09/18/17 09/20/17 Unknown Rx Polyethylene Glycol 3350 [Miralax 17 gm PO BID powd.pack 09/18/17 09/20/17 Unknown Rx 3350] cloNIDine [Catapres] 0.3 mg PO BID tablet 09/18/17 09/20/17 Unknown Rx diphenhydrAMINE [Benadryl CAP] 25 mg PO Q6H PRN capsule 09/18/17 09/20/17 Unknown Rx Active Meds: Active Medications Acetaminophen (Tylenol) 650 mg PO Q4H PRN PRN Reason: Pain MILD(1-3)/Fever >100.5/DURAND Acetaminophen/Hydrocodone Bitart ([place] 7.5/325) 1 each PO Q6H PRN PRN Reason: Pain, Moderate (4-6) Aspirin (Ecotrin) 325 mg PO QDAY LANEY Atorvastatin Calcium (Lipitor) 80 mg PO QHS LANEY Carvedilol (Coreg) 3.125 mg PO BID LANEY Diphenhydramine HCl (Benadryl) 25 mg PO Q6H PRN PRN Reason: Itching Famotidine (Pepcid) 10 mg IV BID LANEY Sodium Chloride (Nacl 0.9%) 100 mls @ 999 mls/hr IV IVONNE PRN PRN Reason: Hypotension Morphine Sulfate (Morphine) 2 mg IV Q4H PRN PRN Reason: Pain, Moderate (4-6) Nitroglycerin (Nitrostat) 0.4 mg SL .Q5MIN PRN PRN Reason: Chest Pain Ondansetron HCl (Zofran) 4 mg IV Q8H PRN PRN Reason: Nausea And Vomiting Sodium Chloride (Sodium Chloride Flush Syringe 10 Ml) 10 ml IV BID LANEY Sodium Chloride (Sodium Chloride Flush Syringe 10 Ml) 10 ml IV PRN PRN PRN Reason: LINE FLUSH Review of Systems All systems: negative (Constitutional: no fever or chills. No anorexia or weight loss. HEENT: No sore throat or sinus drainage no hearing or vision impairment . Cardiovascular: See history of present illness. No, lower extremity swelling or dizziness. Respiratory: No cough, sputum, shortness of breath, hemoptysis or wheezing. Gastrointestinal: No nausea, vomiting, diarrhea , abdominal pain, hematemesis or melena. Admits to constipation. Genitourinary : Does not make urine. Still has vaginal bleeding during subsiding but now hasn 't discharged also. Hematologic: No abnormal bleeding except for vaginal bleeding and no easy bruising. Integumentary: Admits to itching but no rash. Neurological: Admits to headache no focal weakness or numbness, no syncope or seizures. Musculoskeletal: No joint pains no stiffness. Psychiatry: no anxiety or depression) Exam - Vital Signs Vital signs: Vital Signs Temp Pulse Resp BP Pulse Ox 97.8 F 76 12 97/56 100 09/19/17 23:21 09/19/17 23:21 09/19/17 23:21 09/19/17 23:21 09/19/17 23:21 - Physical Exam Narrative exam: Middle aged -[place] female lying in bed in no acute distress HEENT: NCAT, pink oral mucous membrane Neck: Supple, no venous distention CVS: S1S2 RRR with no murmur, rub or gallop Chest: Clear to auscultation but diminished in the lower zones Abdomen: Protuberant, soft, nontender, no organomegaly, bowel sounds are present Extremities: No edema, no clubbing Skin warm and dry, no rash Neuro: Awake, alert no focal deficits Results - Lab Results 09/20/17 09:57 09/20/17 00:01 Most recent lab results Calcium 9.6 mg/dL (8.4-10.2) 09/20/17 00:01 Assessment and Plan - Patient Problems (1) Chest pain Current Visit: Yes Status: Acute Qualifiers: Chest pain type: unspecified Qualified Code(s): R07.9 - Chest pain, unspecified Plan to address problem: Multifactorial etiology. Being evaluated by choir leader. Resume hydrocodone/ acetaminophen patient was receiving prior to discharge. (2) End stage renal disease Current Visit: Yes Status: Acute Plan to address problem: Patient was dialyzed today with no complications. Continue dialysis on a Saturday , Saturday and Saturday schedule (3) Anemia in chronic kidney disease Current Visit: No Status: Acute Plan to address problem: Continue Erythropoetin on dialysis (4) Chronic systolic heart failure Current Visit: No Status: Acute Plan to address problem: Continue fluid removal on dialysis. Continue beta ling (5) Post-menopausal bleeding Onset Date: 08/30/17 Current Visit: No Status: Acute Plan to address problem: Follow-up cervical histology.
[2017-09-20] MEDS: NORCO 7.5/325 PO PRN (19:05)
[2017-09-20] MEDS: BENADRYL PO PRN (19:05)
[2017-09-20] MEDS: PEPCID IV SCH (22:05)
[2017-09-20] MEDS: COREG PO SCH (22:06)
[2017-09-20] MEDS: SODIUM CHLORIDE FLUSH SYRINGE 10 ML IV SCH (22:11)
[2017-09-21] MEDS: NORCO 7.5/325 PO PRN ×3 (05:26→19:00)
[2017-09-21] MEDS: BENADRYL PO PRN ×3 (05:26→19:00)
[2017-09-21 08:12] LABS: Basophils # (Auto) 0.1 K/mm3 (0.0-0.1); Basophils % (Auto) 0.5 % (0.0-1.8); Eosinophils # (Auto) 0.1 K/mm3 (0.0-0.4); Eosinophils % (Auto) 0.7 % (0.0-4.3); Hematocrit 31.4 % (30.3-42.9); Hemoglobin 9.6 gm/dl (10.1-14.3); Lymphocytes # (Auto) 0.7 K/mm3 (1.2-5.4); Lymphocytes % (Auto) 7.1 % (13.4-35.0); Mean Corpuscular HGB Conc 31 % (30-34); Mean Corpuscular Volume 84 fl (79-97); Monocytes # (Auto) 0.8 K/mm3 (0.0-0.8); Monocytes % (Auto) 7.6 % (0.0-7.3); Platelet Count 280 K/mm3 (140-440); Red Blood Count 3.72 M/mm3 (3.65-5.03)
[2017-09-21 08:30] LABS: Calcium 9.9 mg/dL (8.4-10.2)
[2017-09-21 08:38] LABS: Mean Corpuscular Hemoglobin 26 pg (28-32)
--- NOTE | 2017-09-21 09:16 | Progress Note ---
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 Alejo 09/12 morning and he states cervix grossly looks like cervical cancer, official pathology report was pending , follow PROC[facility] CHEMIST upon discharge - f/u with Dr. Luis upon discharge --Anemia with post menopausal Vaginal bleed; Possible gynecological malignancy with possible metastic lesions to her lungs and ribs. Pap smear done 09/12/17, likely from cervical cancer --Anemia ; received 1 unit of PRBC transfusion , significant improvement H&H monitor h/h,transfuse additional units during HD --Chronic Right pleural effusion s/p thoracenthesis on 09/07/17 drained 950 cc --Hypertension Optimize blood pressure medications as needed --Acute on chronic diastolic CHF; continue current medications --Chronic Rt pleural effusion, s/p thoracentesis on 09/07/17 --End-stage renal disease; HD per schedule, nephrology following --Severe malnutrition /Poor appetite with failure to thrive: consult dietary , nutrition supplements and supportive care --Full code status Consults and recommendations noted and appreciated History Interval history: Patient seen and examined medical records reviewed No new events reported Vital signs stable Has no new complaints Hospitalist Physical - Constitutional Vitals: Temp Pulse Resp BP Pulse Ox 98.8 F 83 18 159/98 98 09/21/17 07:51 09/21/17 07:51 09/21/17 07:51 09/21/17 07:51 09/21/17 07:51 General appearance: Present: no acute distress, cachectic, disheveled - EENT Eyes: Present: PERRL, EOM intact - Neck Neck: Present: supple, normal ROM - Respiratory Respiratory effort: normal Respiratory: bilateral: diminished, negative: rales, rhonchi, wheezing - Cardiovascular Rhythm: regular Heart Sounds: Present: S1 & S2 - Extremities Extremities: no ischemia, No edema - Abdominal General gastrointestinal: soft, non-tender, non-distended, normal bowel sounds - Integumentary Integumentary: Present: clear, warm - Psychiatric Psychiatric: appropriate mood/affect, cooperative - Neurologic Neurologic: CNII-XII intact, moves all extremities Results - Labs CBC & Chem 7: 09/21/17 05:47 09/21/17 05:47 Labs: Laboratory Last Values WBC 9.9 K/mm3 (4.5-11.0) 09/21/17 05:47 RBC 3.72 M/mm3 (3.65-5.03) 09/21/17 05:47 Hgb 9.6 gm/dl (10.1-14.3) L 09/21/17 05:47 Hct 31.4 % (30.3-42.9) D 09/21/17 05:47 MCV 84 fl (79-97) 09/21/17 05:47 MCH 26 pg (28-32) L 09/21/17 05:47 MCHC 31 % (30-34) 09/21/17 05:47 RDW 19.0 % (13.2-15.2) H 09/21/17 05:47 Plt Count 280 K/mm3 (140-440) 09/21/17 05:47 Lymph % (Auto) 7.1 % (13.4-35.0) L 09/21/17 05:47 [place] % (Auto) 7.6 % (0.0-7.3) H 09/21/17 05:47 Eos % (Auto) 0.7 % (0.0-4.3) 09/21/17 05:47 Baso % (Auto) 0.5 % (0.0-1.8) 09/21/17 05:47 Lymph # 0.7 K/mm3 (1.2-5.4) L 09/21/17 05:47 [place] # 0.8 K/mm3 (0.0-0.8) 09/21/17 05:47 Eos # 0.1 K/mm3 (0.0-0.4) 09/21/17 05:47 Baso # 0.1 K/mm3 (0.0-0.1) 09/21/17 05:47 Seg Neutrophils % 84.1 % (40.0-70.0) H 09/21/17 05:47 Seg Neutrophils # 8.3 K/mm3 (1.8-7.7) H 09/21/17 05:47 PT 15.6 Sec. (12.2-14.9) H 09/20/17 10:33 INR 1.17 (0.87-1.13) H 09/20/17 10:33 APTT 32.0 Sec. (24.2-36.6) 09/20/17 10:33 Sodium 135 mmol/L (137-145) L 09/21/17 05:47 Potassium 3.6 mmol/L (3.6-5.0) 09/21/17 05:47 Chloride 89.1 mmol/L (98-107) L 09/21/17 05:47 Carbon Dioxide 27 mmol/L (22-30) 09/21/17 05:47 Anion Gap 23 mmol/L 09/21/17 05:47 BUN 24 mg/dL (7-17) H 09/21/17 05:47 Creatinine 3.8 mg/dL (0.7-1.2) H 09/21/17 05:47 Estimated GFR 15 ml/min 09/21/17 05:47 BUN/Creatinine Ratio 6 % 09/21/17 05:47 Glucose 91 mg/dL (65-100) 09/21/17 05:47 Calcium 9.9 mg/dL (8.4-10.2) 09/21/17 05:47 Troponin T 0.085 ng/mL (0.00-0.029) H 09/20/17 15:09 Triglycerides 70 mg/dL (2-149) 09/20/17 00:01 Cholesterol 92 mg/dL (50-199) 09/20/17 00:01 LDL Cholesterol Direct 40 mg/dL (50-130) L 09/20/17 00:01 HDL Cholesterol 34 mg/dL (40-59) L 09/20/17 00:01 Cholesterol/HDL Ratio 2.70 % 09/20/17 00:01 Blood Type B POSITIVE 09/20/17 06:47 Antibody Screen Positive 09/20/17 06:47 Antibody Identification Anti-K 09/20/17 06:47 Crossmatch See Detail 09/20/17 06:47
[2017-09-21] MEDS: COREG PO SCH ×3 (11:03→22:12)
[2017-09-21] MEDS: ECOTRIN PO SCH (11:04)
--- NOTE | 2017-09-21 11:27 | Progress Note ---
Assessment and Plan vaginal bleeding nstemi type 1 anemia htn chol esrd on hd chest pain possible pleuristy pleural effusion rec: treat medically for abnl thallium, no cath in view of anemia , cont coreg 25mg bid, procardia 90mg daily, imdur 30mg Subjective Date of service: 09/21/17 Principal diagnosis: chest pain Interval history: pt is chest pain free this am Objective Vital Signs Temp Pulse Resp BP Pulse Ox 09/21/17 07:51 98.8 F 83 18 159/98 98 09/21/17 05:26 20 09/21/17 04:44 98.5 F 80 16 165/94 98 09/21/17 04:00 78 09/21/17 00:11 98.3 F 81 16 139/80 99 09/20/17 22:06 78 116/71 09/20/17 22:00 22 96 09/20/17 20:14 85 09/20/17 19:45 98.4 F 85 18 135/76 99 09/20/17 17:27 99 09/20/17 17:16 100 09/20/17 14:30 98.3 F 79 16 146/84 96 09/20/17 13:00 97.4 F L 75 21 152/90 09/20/17 12:45 77 152/84 09/20/17 12:30 78 141/85 09/20/17 12:15 70 138/76 09/20/17 12:00 77 141/77 09/20/17 11:45 81 145/80 09/20/17 11:30 77 18 128/78 100 - Physical Examination General: No Apparent Distress HEENT: Positive: PERRL, Normocephaly, Mucus Membranes Moist Neck: Positive: neck supple, trachea midline Cardiac: Positive: Reg Rate and Rhythm Lungs: Positive: clear to auscultation Neuro: Positive: Grossly Intact, Cranial Nerve 2-12 Intact Abdomen: Positive: Soft. Negative: Tender Skin: Positive: Clear. Negative: Rash, Wound Musculoskeletal: No Fluid Collection, No Pain, Normal Range of Motion Extremities: Absent: edema - Labs and Meds CBC 09/21/17 Range/Units 05:47 WBC 9.9 (4.5-11.0) K/mm3 RBC 3.72 (3.65-5.03) M/mm3 Hgb 9.6 L (10.1-14.3) gm/dl Hct 31.4 D (30.3-42.9) % Plt Count 280 (140-440) K/mm3 Lymph # 0.7 L (1.2-5.4) K/mm3 [place] # 0.8 (0.0-0.8) K/mm3 Eos # 0.1 (0.0-0.4) K/mm3 Baso # 0.1 (0.0-0.1) K/mm3 Comprehensive Metabolic Panel 09/21/17 Range/Units 05:47 Sodium 135 L (137-145) mmol/L Potassium 3.6 (3.6-5.0) mmol/L Chloride 89.1 L (98-107) mmol/L Carbon Dioxide 27 (22-30) mmol/L BUN 24 H (7-17) mg/dL Creatinine 3.8 H (0.7-1.2) mg/dL Glucose 91 (65-100) mg/dL Calcium 9.9 (8.4-10.2) mg/dL - Imaging and Cardiology EKG: report reviewed, image reviewed Pharmacologic stress test: report reviewed (08/2017 fixed apical defect and medium size reverisble inferior defect normal lv function) Echo: report reviewed (02/2017 showed EF 55-60%, impaired relaxation, trace AR, trace MR, mild TR, minimal pericardial effusion. 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 ) - Telemetry EKG Rhythm: Sinus Rhythm - EKG Sinus rhythms and dysrhythmias: sinus rhythm
[2017-09-21] MEDS: PEPCID IV SCH ×2 (11:29→22:13)
[2017-09-21] MEDS: RENVELA PO SCH ×2 (13:14→18:49)
[2017-09-21] MEDS: PROCARDIA XL PO SCH (13:15)
[2017-09-21] MEDS: IMDUR PO SCH (13:15)
--- NOTE | 2017-09-21 15:12 | Progress Note ---
Assessment and Plan - Patient Problems (1) Chest pain Current Visit: Yes Status: Acute Qualifiers: Chest pain type: unspecified Qualified Code(s): R07.9 - Chest pain, unspecified Plan to address problem: Multifactorial etiology. Being managed by subassemblies wirer. (2) End stage renal disease Current Visit: Yes Status: Acute Plan to address problem: Continue Hemodialysis on a Saturday, Saturday and Saturday schedule (3) Anemia in chronic kidney disease Current Visit: No Status: Acute Plan to address problem: Improved posttransfusion. Continue Erythropoetin on dialysis (4) Chronic systolic heart failure Current Visit: No Status: Acute Plan to address problem: Continue fluid removal on dialysis. Continue beta ling (5) Post-menopausal bleeding Onset Date: 08/30/17 Current Visit: No Status: Acute Plan to address problem: Follow-up cervical histology. Subjective Date of service: 09/21/17 Principal diagnosis: chest pain Interval history: Patient seen lying in bed. at bedside. Feels better today. Still having chest pain but much better Objective - Exam Narrative Exam: Middle aged -[place] female lying in bed in no acute distress HEENT: NCAT, pink oral mucous membrane Neck: Supple, no venous distention CVS: S1S2 RRR with no murmur, rub or gallop Chest: Clear to auscultation but diminished in the lower zones Abdomen: Protuberant, soft, nontender, no organomegaly, bowel sounds are present Extremities: No edema, no clubbing Skin warm and dry, no rash Neuro: Awake, alert no focal deficits - Vital Signs Vital signs: Vital Signs - 12hr 09/21/17 09/21/17 09/21/17 04:00 04:44 05:26 Temperature 98.5 F Pulse Rate 78 80 Respiratory 16 20 Rate Blood Pressure 165/94 O2 Sat by Pulse 98 Oximetry 09/21/17 09/21/17 09/21/17 07:51 11:49 12:27 Temperature 98.8 F 98.4 F Pulse Rate 83 77 Respiratory 18 18 18 Rate Blood Pressure 159/98 166/99 O2 Sat by Pulse 98 99 Oximetry 09/21/17 13:15 Temperature Pulse Rate 77 Respiratory Rate Blood Pressure 166/99 O2 Sat by Pulse Oximetry - Lab 09/21/17 05:47 09/21/17 05:47 Most recent lab results Calcium 9.9 mg/dL (8.4-10.2) 09/21/17 05:47
[2017-09-21] MEDS: SODIUM CHLORIDE FLUSH SYRINGE 10 ML IV SCH ×2 (18:50→22:14)
[2017-09-22] MEDS: NORCO 7.5/325 PO PRN ×5 (05:32→17:49)
[2017-09-22] MEDS: BENADRYL PO PRN ×3 (05:33→17:44)
[2017-09-22 07:21] LABS: Hematocrit 32.3 % (30.3-42.9); Hemoglobin 10.3 gm/dl (10.1-14.3)
[2017-09-22] MEDS: RENVELA PO SCH ×3 (08:00→17:29)
--- NOTE | 2017-09-22 09:12 | Progress Note ---
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 Alejo 09/12 morning and he states cervix grossly looks like cervical cancer, patient needs to follow [facility] For further evaluation and management, upon discharge - f/u with Dr. Luis upon discharge --Anemia with post menopausal Vaginal bleed; Possible gynecological malignancy with possible metastic lesions to her lungs and ribs. Pap smear done 09/12/17, likely from cervical cancer --Anemia ; received 1 unit of PRBC transfusion , significant improvement H&H monitor h/h,transfuse additional units during HD --Chronic Right pleural effusion s/p thoracenthesis on 09/07/17 drained 950 cc --Hypertension Optimize blood pressure medications as needed --Acute on chronic diastolic CHF; continue current medications --End-stage renal disease; HD per schedule, nephrology following --Severe malnutrition /Poor appetite with failure to thrive: consult dietary , nutrition supplements and supportive care --Full code status Consults and recommendations noted and appreciated Cardiology cleared the patient for discharge Possible discharge to rehabilitation/sniff tomorrow after hemodialysis DC plan discussed the case management today History Interval history: Since seen and examined medical records reviewed No new events reported by nursing staff Cardiology evaluated the patient and cleared for discharge Evaluated for home oxygen Patient saturates about 95-96% room air Denies any chest pain or shortness of breath Hospitalist Physical - Constitutional Vitals: Temp Pulse Resp BP Pulse Ox 98.3 F 84 20 123/80 95 09/22/17 05:07 09/22/17 05:07 09/22/17 05:32 09/22/17 05:07 09/22/17 05:07 General appearance: Present: no acute distress, cachectic, disheveled - EENT Eyes: Present: PERRL, EOM intact - Neck Neck: Present: supple, normal ROM - Respiratory Respiratory effort: normal Respiratory: bilateral: diminished, negative: rales, rhonchi, wheezing - Cardiovascular Rhythm: regular Heart Sounds: Present: S1 & S2 - Extremities Extremities: no ischemia, No edema - Abdominal General gastrointestinal: soft, non-tender, non-distended, normal bowel sounds - Integumentary Integumentary: Present: clear, warm - Psychiatric Psychiatric: appropriate mood/affect, cooperative - Neurologic Neurologic: CNII-XII intact, moves all extremities Results - Labs CBC & Chem 7: 09/22/17 06:35 09/21/17 05:47 Labs: Laboratory Last Values WBC 9.9 K/mm3 (4.5-11.0) 09/21/17 05:47 RBC 3.72 M/mm3 (3.65-5.03) 09/21/17 05:47 Hgb 10.3 gm/dl (10.1-14.3) 09/22/17 06:35 Hct 32.3 % (30.3-42.9) 09/22/17 06:35 MCV 84 fl (79-97) 09/21/17 05:47 MCH 26 pg (28-32) L 09/21/17 05:47 MCHC 31 % (30-34) 09/21/17 05:47 RDW 19.0 % (13.2-15.2) H 09/21/17 05:47 Plt Count 295 K/mm3 (140-440) 09/22/17 06:35 Lymph % (Auto) 7.1 % (13.4-35.0) L 09/21/17 05:47 [place] % (Auto) 7.6 % (0.0-7.3) H 09/21/17 05:47 Eos % (Auto) 0.7 % (0.0-4.3) 09/21/17 05:47 Baso % (Auto) 0.5 % (0.0-1.8) 09/21/17 05:47 Lymph # 0.7 K/mm3 (1.2-5.4) L 09/21/17 05:47 [place] # 0.8 K/mm3 (0.0-0.8) 09/21/17 05:47 Eos # 0.1 K/mm3 (0.0-0.4) 09/21/17 05:47 Baso # 0.1 K/mm3 (0.0-0.1) 09/21/17 05:47 Seg Neutrophils % 84.1 % (40.0-70.0) H 09/21/17 05:47 Seg Neutrophils # 8.3 K/mm3 (1.8-7.7) H 09/21/17 05:47 PT 15.6 Sec. (12.2-14.9) H 09/20/17 10:33 INR 1.17 (0.87-1.13) H 09/20/17 10:33 APTT 32.0 Sec. (24.2-36.6) 09/20/17 10:33 Sodium 135 mmol/L (137-145) L 09/21/17 05:47 Potassium 3.6 mmol/L (3.6-5.0) 09/21/17 05:47 Chloride 89.1 mmol/L (98-107) L 09/21/17 05:47 Carbon Dioxide 27 mmol/L (22-30) 09/21/17 05:47 Anion Gap 23 mmol/L 09/21/17 05:47 BUN 24 mg/dL (7-17) H 09/21/17 05:47 Creatinine 3.8 mg/dL (0.7-1.2) H 09/21/17 05:47 Estimated GFR 15 ml/min 09/21/17 05:47 BUN/Creatinine Ratio 6 % 09/21/17 05:47 Glucose 91 mg/dL (65-100) 09/21/17 05:47 Calcium 9.9 mg/dL (8.4-10.2) 09/21/17 05:47 Troponin T 0.085 ng/mL (0.00-0.029) H 09/20/17 15:09 Triglycerides 70 mg/dL (2-149) 09/20/17 00:01 Cholesterol 92 mg/dL (50-199) 09/20/17 00:01 LDL Cholesterol Direct 40 mg/dL (50-130) L 09/20/17 00:01 HDL Cholesterol 34 mg/dL (40-59) L 09/20/17 00:01 Cholesterol/HDL Ratio 2.70 % 09/20/17 00:01 Blood Type B POSITIVE 09/20/17 06:47 Antibody Screen Positive 09/20/17 06:47 Antibody Identification Anti-K 09/20/17 06:47 Crossmatch See Detail 09/20/17 06:47
--- NOTE | 2017-09-22 10:26 | Progress Note ---
Assessment and Plan vaginal bleeding nstemi type 1 anemia htn chol esrd on hd chest pain possible pleuristy pleural effusion rec: treat medically for abnl thallium, no cath in view of anemia , cont coreg 25mg bid, procardia 90mg daily, imdur 30mg , may be discharged cardiac Subjective Date of service: 09/22/17 Principal diagnosis: chest pain Interval history: Patient denies any chest pain Objective Vital Signs Temp Pulse Resp BP BP Pulse Ox 09/22/17 07:33 98.2 F 86 20 119/73 100 09/22/17 05:32 20 09/22/17 05:07 98.3 F 84 18 123/80 95 09/22/17 04:40 85 09/22/17 04:13 84 123/80 99 09/21/17 23:58 97.6 F 85 18 127/80 96 09/21/17 23:32 89 127/80 95 09/21/17 22:12 88 127/73 09/21/17 20:24 98.4 F 88 20 127/73 100 09/21/17 20:18 100 09/21/17 20:07 87 127/73 100 09/21/17 20:00 88 09/21/17 16:19 98.3 F 90 18 152/90 98 09/21/17 13:15 77 166/99 09/21/17 12:27 18 09/21/17 12:00 78 09/21/17 11:49 98.4 F 77 18 166/99 99 - Physical Examination General: No Apparent Distress HEENT: Positive: PERRL, Normocephaly, Mucus Membranes Moist Neck: Positive: neck supple, trachea midline Cardiac: Positive: Reg Rate and Rhythm Lungs: Positive: clear to auscultation Neuro: Positive: Grossly Intact, Cranial Nerve 2-12 Intact Abdomen: Positive: Soft. Negative: Tender Skin: Positive: Clear. Negative: Rash, Wound Musculoskeletal: No Fluid Collection, No Pain, Normal Range of Motion Extremities: Absent: edema - Labs and Meds CBC 09/22/17 Range/Units 06:35 Hgb 10.3 (10.1-14.3) gm/dl Hct 32.3 (30.3-42.9) % Plt Count 295 (140-440) K/mm3 - Imaging and Cardiology EKG: report reviewed, image reviewed Echo: report reviewed (02/2017 showed EF 55-60%, impaired relaxation, trace AR, trace MR, mild TR, minimal pericardial effusion. 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 ) - Telemetry EKG Rhythm: Sinus Rhythm - EKG Sinus rhythms and dysrhythmias: sinus rhythm
[2017-09-22] MEDS: COREG PO SCH ×2 (11:08→22:38)
[2017-09-22] MEDS: PEPCID IV SCH ×3 (11:08→22:37)
[2017-09-22] MEDS: PROCARDIA XL PO SCH (11:10)
[2017-09-22] MEDS: IMDUR PO SCH (11:10)
[2017-09-22] MEDS: ECOTRIN PO SCH ×2 (11:12→11:13)
[2017-09-22] MEDS: SODIUM CHLORIDE FLUSH SYRINGE 10 ML IV SCH ×2 (11:14→22:37)
--- NOTE | 2017-09-22 15:06 | Progress Note ---
Assessment and Plan - Patient Problems (1) Chest pain Current Visit: Yes Status: Acute Qualifiers: Chest pain type: unspecified Qualified Code(s): R07.9 - Chest pain, unspecified Plan to address problem: Multifactorial etiology. Being managed by veterinary epidemiologist. (2) End stage renal disease Current Visit: Yes Status: Acute Plan to address problem: Continue Hemodialysis on a Saturday, Saturday and Saturday schedule (3) Anemia in chronic kidney disease Current Visit: No Status: Acute Plan to address problem: Improved posttransfusion. Continue Erythropoetin on dialysis (4) Chronic systolic heart failure Current Visit: No Status: Acute Plan to address problem: Continue fluid removal on dialysis. Continue beta ling (5) Post-menopausal bleeding Onset Date: 08/30/17 Current Visit: No Status: Acute Plan to address problem: Follow-up cervical histology. Subjective Date of service: 09/22/17 Principal diagnosis: chest pain Interval history: Patient seen lying in bed. at bedside. Still having chest pain but improved Objective - Exam Narrative Exam: Middle aged -[place] female lying in bed in no acute distress HEENT: NCAT, pink oral mucous membrane Neck: Supple, no venous distention CVS: S1S2 RRR with no murmur, rub or gallop Chest: Clear to auscultation but diminished in the lower zones Abdomen: Protuberant, soft, nontender, no organomegaly, bowel sounds are present Extremities: No edema, no clubbing Skin warm and dry, no rash Neuro: Awake, alert no focal deficits - Vital Signs Vital signs: Vital Signs - 12hr 09/22/17 09/22/17 09/22/17 04:13 04:40 05:07 Temperature 98.3 F Pulse Rate 84 85 84 Respiratory 18 Rate Blood Pressure 123/80 Blood Pressure 123/80 [Right] O2 Sat by Pulse 99 95 Oximetry 09/22/17 09/22/17 09/22/17 05:32 07:33 11:08 Temperature 98.2 F Pulse Rate 86 Respiratory 20 20 Rate Blood Pressure 119/73 119/73 Blood Pressure [Right] O2 Sat by Pulse 100 Oximetry 09/22/17 11:10 Temperature Pulse Rate Respiratory Rate Blood Pressure 119/73 Blood Pressure [Right] O2 Sat by Pulse Oximetry - Lab 09/22/17 06:35 09/21/17 05:47 Most recent lab results Calcium 9.9 mg/dL (8.4-10.2) 09/21/17 05:47
[2017-09-23] MEDS: RENVELA PO SCH (09:11)
[2017-09-23] MEDS: NORCO 7.5/325 PO PRN (09:11)
[2017-09-23] MEDS: PEPCID IV SCH (09:12)
[2017-09-23] MEDS: ECOTRIN PO SCH (09:15)
[2017-09-23] MEDS: PROCARDIA XL PO SCH (09:16)
[2017-09-23] MEDS: SODIUM CHLORIDE FLUSH SYRINGE 10 ML IV SCH (09:16)
[2017-09-23] MEDS: COREG PO SCH (09:17)
[2017-09-23] MEDS: IMDUR PO SCH (09:17)
[2017-09-23] MEDS ORDERED: NACL 0.9% 1000 ML 2,000 ML ONE (11:06)
--- NOTE | 2017-09-23 11:28 | Progress Note ---
Assessment and Plan - Patient Problems (1) Chest pain Current Visit: Yes Status: Acute Qualifiers: Chest pain type: unspecified Qualified Code(s): R07.9 - Chest pain, unspecified Plan to address problem: Multifactorial etiology, follow cardiology recommendations (2) End stage renal disease Current Visit: Yes Status: Acute Plan to address problem: cont HD on MWF schedule (3) Symptomatic anemia Current Visit: Yes Status: Acute Plan to address problem: Improved post transfusion. Continue Erythropoetin on dialysis (4) Chronic systolic heart failure Current Visit: No Status: Acute Plan to address problem: Continue fluid removal on dialysis. Continue beta ling. (5) Vaginal bleeding Current Visit: No Status: Acute Plan to address problem: Follow-up cervical histology Subjective Date of service: 09/23/17 Principal diagnosis: chest pain Interval history: pt seen and examined during HD, no acute complaints. Objective - Vital Signs Vital signs: Vital Signs - 12hr 09/23/17 09/23/17 09/23/17 00:45 03:53 07:23 Temperature 97.6 F 98.4 F Pulse Rate 85 80 Respiratory 20 18 Rate Blood Pressure 123/76 118/67 108/66 O2 Sat by Pulse 100 96 Oximetry 09/23/17 09/23/17 09/23/17 09:17 10:40 10:45 Temperature 97.9 F Pulse Rate 86 84 Respiratory 16 Rate Blood Pressure 127/63 135/81 134/84 O2 Sat by Pulse Oximetry 09/23/17 09/23/17 11:00 11:15 Temperature Pulse Rate 87 90 Respiratory Rate Blood Pressure 120/79 122/78 O2 Sat by Pulse Oximetry - General Appearance General appearance: well-developed, well-nourished, appears stated age EENT: ATNC, PERRL, mucous membranes moist Neck: no JVD Respiratory: Present: Clear to Ascultation Cardiology: regular, S1S2 Gastrointestinal: normoactive bowel sounds Integumentary: no rash, other (no edema ) Neurologic: no focal deficit, alert and oriented x3, strength 5/5, CN 3-12 intact Psychiatric: mood/affect appropriate, cooperative - Lab 09/22/17 06:35 09/21/17 05:47 Most recent lab results Calcium 9.9 mg/dL (8.4-10.2) 09/21/17 05:47
--- NOTE | 2017-09-23 11:33 | Progress Note ---
Assessment and Plan Assessment: Vaginal bleeding / ? cervical CA Anemia - s/p PRBC tx NSTEMI type II - ECG with no acute ischemic changes H/o abnormal nuclear stress test Nonobstructive CAD / anomalous RCA ESRD on HD H/o NI/cardiomyopathy - now with normalized EF HTN Pulmonary lesions - Lung nodules and abnormalities associated with the ribs, possible metastases Plan: treat medically for abnl thallium, no cath in view of anemia , cont coreg 25mg bid, procardia 90mg daily, imdur 30mg , may be discharged home from cardiac standpoint. Recommend follow up in our office with Cece Messer NP, within 1-2 weeks of hospital discharge ([phone]). The patient has been seen in conjunction with Dr. Billings who agrees with the assessment and plan of care. Subjective Date of service: 09/23/17 Principal diagnosis: chest pain Interval history: pt resting comfortably in bed, no current cardiac complaints. states she is going for dialysis today and then will be discharged. Objective Last Vital Signs Temp 97.9 F 09/23/17 10:40 Pulse 90 09/23/17 11:15 Resp 16 09/23/17 10:40 BP 122/78 09/23/17 11:15 Pulse Ox 96 09/23/17 07:23 - Physical Examination General: No Apparent Distress HEENT: Positive: PERRL, Normocephaly, Mucus Membranes Moist Neck: Positive: neck supple, trachea midline Cardiac: Positive: Reg Rate and Rhythm, S1/S2, Systolic Murmur Lungs: Positive: clear to auscultation Neuro: Positive: Grossly Intact, Cranial Nerve 2-12 Intact Abdomen: Positive: Soft. Negative: Tender Skin: Positive: Clear. Negative: Rash, Wound Musculoskeletal: No Fluid Collection, No Pain, Normal Range of Motion Extremities: Absent: edema - Imaging and Cardiology EKG: report reviewed, image reviewed Echo: report reviewed (02/2017 showed EF 55-60%, impaired relaxation, trace AR, trace MR, mild TR, minimal pericardial effusion. 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 ) - Telemetry EKG Rhythm: Sinus Rhythm - EKG Sinus rhythms and dysrhythmias: sinus rhythm
[2017-09-23] MEDS: BENADRYL PO PRN (12:31)
--- NOTE | 2017-09-23 13:04 | Discharge Summary ---
Providers - Providers Date of Admission: 09/20/17 07:51 Date of discharge: 09/23/17 Attending physician: NICK SINGLETON 09/20/17 Consult to Cardiac Rehabilitation [CONS] Routine Reason For Exam: Phase 1 09/20/17 09:35 Consult to Physician [CONS] Routine Comment: Consulting Provider: HERACLIO LAI Physician Instructions: Reason For Exam: NSTEMI 09/20/17 14:40 Consult to Physician [CONS] Routine Comment: Consulting Provider: ALEXANDER IRIZARRY Physician Instructions: Reason For Exam: esrd Primary care physician: MAT INSPECTOR Hospitalization Condition: Stable Disposition: DC/[place]-03 [facility] Time spent for discharge: 32 min Core Measure Documentation - Palliative Care Palliative Care/ Comfort Measures: Not Applicable - Core Measures Any of the following diagnoses?: none Exam - Constitutional Vitals: Temp Pulse Resp BP Pulse Ox 97.9 F 84 16 130/84 96 09/23/17 12:17 09/23/17 12:17 09/23/17 12:17 09/23/17 12:17 09/23/17 07:23 General appearance: Present: no acute distress, well-nourished - EENT Eyes: Present: PERRL, EOM intact - Neck Neck: Present: supple, normal ROM - Respiratory Respiratory: negative: rales, rhonchi, wheezing - Cardiovascular Rhythm: regular Heart Sounds: Present: S1 & S2 - Extremities Extremities: no ischemia, No edema - Abdominal General gastrointestinal: Present: soft, non-tender, non-distended - Integumentary Integumentary: Present: clear, warm - Musculoskeletal Musculoskeletal: strength equal bilaterally, generalized weakness - Psychiatric Psychiatric: appropriate mood/affect, cooperative - Neurologic Neurologic: moves all extremities Plan Activity: advance as tolerated Diet: renal Additional Instructions: Follow renal and HD per schedule [MWF]. Advised to follow private PALLETIZER OPERATOR for further evaluation and management of ? Cervical cancer Follow up with: SHAN KRAUS MD [Primary Care Provider] - 3-5 Days ALEXANDER IRIZARRY MD [Staff Physician] - 7 Days SELMA ALMANZA MD [Staff Physician] - 7 Days
--- NOTE | 2017-09-23 14:23 | XRay Report ---
FINAL REPORT EXAM: XR CHEST 1V AP HISTORY: Chest pain. TECHNIQUE: A single frontal portable radiograph of the chest was obtained. Comparison is made with prior study 09/03/2017. FINDINGS: The cardiac silhouette is normal in size, and the thoracic aorta is tortuous and calcified. A left jugular central venous line again is present with its tip overlying the right atrium. There is a moderate right pleural effusion, slightly decreased in size compared to prior exam. There is a small left pleural effusion with associated left basilar consolidation, stable. There is a 1.8 cm nodule in the lateral left midlung field, previously 1.4 cm. There is also a 0.7 cm nodule in the right upper lobe, increased in prominence. There is an expansile bony mass in the lateral right 6th rib, which appears slightly more prominent compared to prior radiographs. IMPRESSION: 1. Moderate right pleural effusion, slightly decreased in size. Stable small left pleural effusion and left basilar consolidation. 2. Slight increased prominence of nodules seen in both lung richardson, suspicious for metastatic disease. 3. Expense bony lesion in the lateral right 6th rib, which appears slightly more prominent compared to prior radiographs.
[2017-09-23 14:51] VITALS: BP 123/79
[2017-09-23] MEDS ORDERED: NACL 0.9 (PRIMING MACHINE ONLY DIALYSIS) MC ONE (17:19)
== END 2017-09-23 16:44 | disposition home or self-care (01) | DRG 280 ==
LOC: ED 22:55 → 4A 09-20 07:51
PROVIDERS: ADMIT Hospitalist; ATTEND Internal Medicine
PROC: 30233N1 Transfusion of Nonautologous Red Blood Cells into Peripheral Vein, Percutaneous Approach (ICD-10-PCS; principal; 2017-09-20)
PROC: 5A1D70Z Performance of Urinary Filtration, Intermittent, Less than 6 Hours Per Day (ICD-10-PCS; 2017-09-20)
PROC: 5A1D70Z Performance of Urinary Filtration, Intermittent, Less than 6 Hours Per Day (ICD-10-PCS; 2017-09-23)
DX: I21.A1 Myocardial infarction type 2 (principal); N18.6 End stage renal disease; E43 Unspecified severe protein-calorie malnutrition; I50.43 Acute on chronic combined systolic (congestive) and diastolic (congestive) heart failure; I42.8 Other cardiomyopathies; I13.2 Hypertensive heart and chronic kidney disease with heart failure and with stage 5 chronic kidney disease, or end stage renal disease; D63.1 Anemia in chronic kidney disease; I25.10 Atherosclerotic heart disease of native coronary artery without angina pectoris; J98.4 Other disorders of lung; R91.1 Solitary pulmonary nodule; N93.9 Abnormal uterine and vaginal bleeding, unspecified; C53.9 Malignant neoplasm of cervix uteri, unspecified; N95.0 Postmenopausal bleeding; Z68.21 Body mass index [BMI] 21.0-21.9, adult; Z88.0 Allergy status to penicillin; Z88.2 Allergy status to sulfonamides; Z79.82 Long term (current) use of aspirin; Z79.899 Other long term (current) drug therapy; Z90.5 Acquired absence of kidney
CPT/HCPCS: 36415; 36430; 71045; 80048; 80061; 84484; 85014; 85018; 85025; 85049; 85610; 85730; 86850; 86870; 86900; 86901; 86902; 86920; 86922; 93005; 93010; 93306; 94760; 99406; A9270-GY; J2270; J2405; J7030; P9016

== ENCOUNTER 2017-10-04 08:11 | Inpatient (IN) | payer MEDICARE ==
[2017-10-04 09:06] LABS: Basophils # (Auto) 0.1 K/mm3 (0.0-0.1); Basophils % (Auto) 0.4 % (0.0-1.8); Eosinophils # (Auto) 0.1 K/mm3 (0.0-0.4); Eosinophils % (Auto) 0.8 % (0.0-4.3); Hematocrit 33.7 % (30.3-42.9); Hemoglobin 10.3 gm/dl (10.1-14.3); Lymphocytes # (Auto) 0.9 K/mm3 (1.2-5.4); Lymphocytes % (Auto) 7.1 % (13.4-35.0); Mean Corpuscular HGB Conc 31 % (30-34); Mean Corpuscular Hemoglobin 27 pg (28-32); Mean Corpuscular Volume 86 fl (79-97); Monocytes # (Auto) 0.8 K/mm3 (0.0-0.8); Monocytes % (Auto) 6.2 % (0.0-7.3); Platelet Count 341 K/mm3 (140-440)
--- NOTE | 2017-10-04 09:07 | XRay Report ---
AP CHEST: HISTORY: chest pain Small bilateral pleural effusion have not significantly changed from 09/20/17. There is borderline heart size and pulmonary venous structures. Mild bibasilar atelectasis is identified but no convincing pneumonia. Subtle bilateral pulmonary nodules are suspected which are unchanged. Left venous catheter remains in adequate position. IMPRESSION: No change since 09/20/17. Small bilateral pleural effusions and mild bibasilar atelectasis. Subtle scattered pulmonary nodules are suspected.
--- NOTE | 2017-10-04 09:10 | Emergency Department Report ---
ED General Adult HPI - General Chief complaint: Vaginal Bleeding Stated complaint: VAGINAL BLEED Time Seen by Provider: 10/04/17 09:05 Source: EMS Mode of arrival: Stretcher Limitations: Physical Limitation - History of Present Illness Initial comments: This is a 62-year-old end-stage dialysis patient who was sent by her child care giver Dr. Roque to the emergency department. Presumably the plan is for inpatient dialysis and did not get dialyzed prior to arrival. Patient is chronically short of breath. She states that she is residing at a retirement and was pulled up earlier for a transfer. She states that she has some vague chest soreness secondary to this transfer but no pleuritic pain. The reason she was sent here is because of the passage of vaginal clots. She has done this before resulting in 2 admissions for transfusions this year she states. Her last admission was the beginning of this month. She was sent to rehabilitation after that admission where she resides now. She also states she has recently had a lymph node biopsy (supraclavicular lymph node) which she reports was positive for metastatic cancer. He states that she has had a pelvic ultrasound in the past but does not recall the results. The patient has not now actively bleeding. She reports she has not made it to the adjunct psychology faculty member for further care and evaluation of her vaginal bleeding despite these 2 episodes requiring transfusion -: Gradual Location: chest (as above described not active) Radiation: non-radiation Quality: aching Consistency: constant Improves with: none Worsens with: none Associated Symptoms: denies other symptoms Treatments Prior to Arrival: none - Related Data Home Medications Medication Instructions Recorded Confirmed Last Taken Carvedilol [Coreg] 25 mg PO BID 08/30/17 09/20/17 Unknown Megestrol [Megace] 20 mg PO BID 08/30/17 09/20/17 Unknown Sevelamer Carbonate [Renvela] 3,200 mg PO TID 08/30/17 09/20/17 Unknown Vit B Comp No.3/Folic/C/Biotin 1 each PO DAILY 08/30/17 09/20/17 Unknown [Design Drafter Chief-Romero Rx Tablet] Previous Rx's Medication Instructions Recorded Last Taken Type Aspirin [Aspirin BABY CHEW TAB] 81 mg PO QDAY #30 tab.chew 02/28/17 Unknown Rx Acetaminophen [Acetaminophen TAB] 650 mg PO Q4H PRN tablet 09/18/17 Unknown Rx Bisacodyl [Dulcolax suppos] 10 mg OK QDAY supp.rect 09/18/17 Unknown Rx Docusate Sodium [Colace CAP] 100 mg PO BID capsule 09/18/17 Unknown Rx Famotidine [Pepcid] 20 mg PO QDAY tablet 09/18/17 Unknown Rx ISOSORBIDE MONOnitrate [Imdur ER] 30 mg PO QDAY tablet 09/18/17 Unknown Rx NIFEdipine XL [Procardia Xl] 90 mg PO QDAY tablet 09/18/17 Unknown Rx Nitroglycerin [Nitrostat] 0.4 mg SL .Q5MIN PRN tablet 09/18/17 Unknown Rx Polyethylene Glycol 3350 [Miralax 17 gm PO BID powd.pack 09/18/17 Unknown Rx 3350] diphenhydrAMINE [Benadryl CAP] 25 mg PO Q6H PRN capsule 09/18/17 Unknown Rx AtorvaSTATin [Lipitor] 80 mg PO QHS tablet 09/23/17 Unknown Rx Allergies Allergy/AdvReac Type Severity Reaction Status Date / Time cefazolin sodium [From Ancef] Allergy Rash Verified 05/25/13 08:00 lisinopril Allergy Angioedema Verified 02/25/17 20:06 Penicillins Allergy Rash Verified 05/25/13 08:00 phenytoin sodium Allergy Rash Verified 05/25/13 08:00 [From Dilantin] phenytoin sodium extended Allergy Rash Verified 05/25/13 08:00 [From Dilantin] Sulfa (Sulfonamide Allergy Rash Verified 05/25/13 08:00 Antibiotics) ED Review of Systems ROS: Stated complaint: VAGINAL BLEED Other details as noted in HPI Constitutional: denies: chills, fever Eyes: denies: eye pain, eye discharge, vision change ENT: denies: ear pain, throat pain Respiratory: shortness of breath. denies: cough, wheezing Cardiovascular: as per HPI, chest pain. denies: palpitations Endocrine: no symptoms reported Gastrointestinal: denies: abdominal pain, nausea, diarrhea Genitourinary: denies: urgency, dysuria, discharge Musculoskeletal: denies: back pain, joint swelling, arthralgia Skin: denies: rash, lesions Neurological: denies: headache, weakness, paresthesias Psychiatric: denies: anxiety, depression Hematological/Lymphatic: denies: easy bleeding, easy bruising ED Past Medical Hx - Past Medical History Hx Hypertension: Yes Hx Congestive Heart Failure: Yes Hx Diabetes: No Hx Renal Disease: Yes (dialysis M-W-F) Hx of Cancer: Yes (newly found, approximately 09/17/2017) Hx Asthma: No Hx COPD: No - Surgical History Additional Surgical History: bilateral nephrectomy. permacath left chest - Social History Smoking Status: Former Smoker Substance Use Type: Alcohol - Medications Home Medications: Home Medications Medication Instructions Recorded Confirmed Last Taken Type Aspirin [Aspirin BABY CHEW TAB] 81 mg PO QDAY #30 tab.chew 02/28/17 09/20/17 Unknown Rx Carvedilol [Coreg] 25 mg PO BID 08/30/17 09/20/17 Unknown History Megestrol [Megace] 20 mg PO BID 08/30/17 09/20/17 Unknown History Sevelamer Carbonate [Renvela] 3,200 mg PO TID 08/30/17 09/20/17 Unknown History Vit B Comp No.3/Folic/C/Biotin 1 each PO DAILY 08/30/17 09/20/17 Unknown History [Design Drafter Chief-Romero Rx Tablet] Acetaminophen [Acetaminophen TAB] 650 mg PO Q4H PRN tablet 09/18/17 09/20/17 Unknown Rx Bisacodyl [Dulcolax suppos] 10 mg OK QDAY supp.rect 09/18/17 09/20/17 Unknown Rx Docusate Sodium [Colace CAP] 100 mg PO BID capsule 09/18/17 09/20/17 Unknown Rx Famotidine [Pepcid] 20 mg PO QDAY tablet 09/18/17 09/20/17 Unknown Rx ISOSORBIDE MONOnitrate [Imdur ER] 30 mg PO QDAY tablet 09/18/17 09/20/17 Unknown Rx NIFEdipine XL [Procardia Xl] 90 mg PO QDAY tablet 09/18/17 09/20/17 Unknown Rx Nitroglycerin [Nitrostat] 0.4 mg SL .Q5MIN PRN tablet 09/18/17 09/20/17 Unknown Rx Polyethylene Glycol 3350 [Miralax 17 gm PO BID powd.pack 09/18/17 09/20/17 Unknown Rx 3350] diphenhydrAMINE [Benadryl CAP] 25 mg PO Q6H PRN capsule 09/18/17 09/20/17 Unknown Rx AtorvaSTATin [Lipitor] 80 mg PO QHS tablet 09/23/17 Unknown Rx ED Physical Exam - General Limitations: Physical Limitation General appearance: alert, in no apparent distress - Head Head exam: Present: atraumatic, normocephalic - Eye Eye exam: Present: normal appearance. Absent: scleral icterus - ENT ENT exam: Present: mucous membranes moist - Neck Neck exam: Present: normal inspection. Absent: tenderness, meningismus - Respiratory Respiratory exam: Present: normal lung sounds bilaterally. Absent: respiratory distress - Cardiovascular Cardiovascular Exam: Present: regular rate, normal rhythm. Absent: systolic murmur, diastolic murmur, rubs, gallop - GI/Abdominal GI/Abdominal exam: Present: soft, normal bowel sounds. Absent: distended, tenderness, guarding, rebound, rigid - Extremities Exam Extremities exam: Present: normal inspection - Back Exam Back exam: Present: normal inspection - Neurological Exam Neurological exam: Present: alert, oriented X3, CN II-XII intact. Absent: motor sensory deficit - Psychiatric Psychiatric exam: Present: normal affect, normal mood - Skin Skin exam: Present: warm, dry, intact, normal color. Absent: rash ED Course Vital Signs 10/04/17 08:29 Temperature 97.4 F L Pulse Rate 75 Respiratory 21 Rate Blood Pressure 128/78 [Right] O2 Sat by Pulse 93 Oximetry - Reevaluation(s) Reevaluation #1: Pulse oximetry was 9394 on room air. Patient placed on 2 L nasal cannula. 10/04/17 09:48 Reevaluation #2: Discussed with Dr. Rice and admitted. Consult Dr. Roque and Kaycee. 10/04/17 10:16 ED Medical Decision Making - Lab Data Result diagrams: 10/04/17 08:37 10/04/17 08:37 Laboratory Results - last 24 hr 10/04/17 10/04/17 10/04/17 08:37 08:37 08:37 WBC 12.7 H RBC 3.90 Hgb 10.3 Hct 33.7 MCV 86 MCH 27 L MCHC 31 RDW 20.0 H Plt Count 341 Lymph % (Auto) 7.1 L [place] % (Auto) 6.2 Eos % (Auto) 0.8 Baso % (Auto) 0.4 Lymph # 0.9 L [place] # 0.8 Eos # 0.1 Baso # 0.1 Seg Neutrophils % 85.5 H Seg Neutrophils # 10.9 H PT 16.6 H INR 1.27 H APTT 35.4 Sodium 135 L Potassium 4.9 Chloride 95.4 L Carbon Dioxide 23 Anion Gap 22 BUN 52 H Creatinine 7.0 H Estimated GFR 7 BUN/Creatinine Ratio 7 Glucose 75 Calcium 9.0 Troponin T NT-Pro-B Natriuret Pep Blood Type 10/04/17 10/04/17 08:37 08:37 WBC RBC Hgb Hct MCV MCH MCHC RDW Plt Count Lymph % (Auto) [place] % (Auto) Eos % (Auto) Baso % (Auto) Lymph # [place] # Eos # Baso # Seg Neutrophils % Seg Neutrophils # PT INR APTT Sodium Potassium Chloride Carbon Dioxide Anion Gap BUN Creatinine Estimated GFR BUN/Creatinine Ratio Glucose Calcium Troponin T 0.072 H NT-Pro-B Natriuret Pep 6794 H Blood Type B POSITIVE - Radiology Data Radiology results: report reviewed interpreted by me: Bilateral pleural effusions Critical care attestation.: If time is entered above; I have spent that time in minutes in the direct care of this critically ill patient, excluding procedure time. ED Disposition Clinical Impression: Vaginal bleeding, End-stage renal disease needing dialysis, Metastatic cancer, Bilateral pleural effusion Anemia Qualifiers: Anemia type: unspecified type Qualified Code(s): D64.9 - Anemia, unspecified Cardiomyopathy Qualifiers: Cardiomyopathy type: unspecified Qualified Code(s): I42.9 - Cardiomyopathy, unspecified Disposition: OP ADMIT IP TO THIS HOSP Is pt being admited?: Yes Does the pt Need Aspirin: Yes Condition: Stable Referrals: PRIMARY CARE, [Primary Care Provider] - 3-5 Days Time of Disposition: 10:09
[2017-10-04 09:28] LABS: INR 1.27 (0.87-1.13); Partial Thromboplastin Time 35.4 Sec. (24.2-36.6)
[2017-10-04] MEDS ORDERED: BABY ASPIRIN PO ONE (10:09)
[2017-10-04 10:25] LABS: Chol/HDL Ratio 1.75 %
[2017-10-04] MEDS ORDERED: BABY ASPIRIN ONE (10:38)
[2017-10-04] MEDS ORDERED: ALBURX 25% (ALBUMIN) IV PRN (13:00)
[2017-10-04] MEDS ORDERED: PROCRIT IV PRN (13:00)
[2017-10-04] MEDS ORDERED: NACL 0.9% 100 ML IV PRN (13:00)
[2017-10-04] MEDS ORDERED: HEPARIN IV PRN (13:00)
--- NOTE | 2017-10-04 13:22 | History and Physical Report ---
History of Present Illness Date of examination: 10/04/17 Date of admission: 10/04/17 10:14 Chief complaint: Vaginal bleeding History of present illness: 62-year-old female patient with multiple medical problems well known to our services recurrent admissions in the past Recently discharged 2 weeks ago, sent by her product mgr for evaluation of vaginal bleeding and for inpatient hemodialysis. Patient was extensively evaluated by COATER HELPER in the past and is scheduled to follow with them as well as hematology oncologist Complains of generalized body pains, and some itching Denies nausea vomiting or abdominal pain Denies headache dizziness weakness or numbness Past History Past Medical History: CAD, cancer (cervical cancer), dialysis, ESRD, heart failure, hypertension Past Surgical History: Other (permacath placement/80 fistula placement) Social history: lives with family, full code. denies: smoking, alcohol abuse, prescription drug abuse Family history: hypertension Medications and Allergies Allergies Allergy/AdvReac Type Severity Reaction Status Date / Time acetaminophen [From Percocet] Allergy Nausea Verified 10/04/17 13:51 cefazolin sodium [From Ancef] Allergy Rash Verified 05/25/13 08:00 lisinopril Allergy Angioedema Verified 02/25/17 20:06 oxycodone [From Percocet] Allergy Nausea Verified 10/04/17 13:51 Penicillins Allergy Rash Verified 05/25/13 08:00 phenytoin sodium Allergy Rash Verified 05/25/13 08:00 [From Dilantin] phenytoin sodium extended Allergy Rash Verified 05/25/13 08:00 [From Dilantin] Sulfa (Sulfonamide Allergy Rash Verified 05/25/13 08:00 Antibiotics) Home Medications Medication Instructions Recorded Confirmed Last Taken Type Aspirin [Aspirin BABY CHEW TAB] 81 mg PO QDAY #30 tab.chew 02/28/17 10/04/17 Rx Carvedilol [Coreg] 25 mg PO BID 08/30/17 10/04/17 10/02/17 History Megestrol [Megace] 20 mg PO BID 08/30/17 10/04/17 10/02/17 History Sevelamer Carbonate [Renvela] 1,200 mg PO TID 08/30/17 10/04/17 10/02/17 History Vit B Comp No.3/Folic/C/Biotin 1 each PO DAILY 08/30/17 10/04/1718 History [Foundry Tender-Romero Rx Tablet] Acetaminophen [Acetaminophen TAB] 650 mg PO Q4H PRN tablet 09/18/17 10/04/17 Unknown Rx Docusate Sodium [Colace CAP] 100 mg PO BID capsule 09/18/17 10/04/17 Unknown Rx Famotidine [Pepcid] 20 mg PO QDAY tablet 09/18/17 10/04/17 Unknown Rx ISOSORBIDE MONOnitrate [Imdur ER] 30 mg PO QDAY tablet 09/18/17 10/04/17 Rx NIFEdipine XL [Procardia Xl] 90 mg PO QDAY tablet 09/18/17 10/04/17 10/02/17 Rx Nitroglycerin [Nitrostat] 0.4 mg SL .Q5MIN PRN tablet 09/18/17 10/04/17 Unknown Rx diphenhydrAMINE [Benadryl CAP] 25 mg PO Q6H PRN capsule 09/18/17 10/04/17 Unknown Rx AtorvaSTATin [Lipitor] 80 mg PO QHS tablet 09/23/17 10/04/17 10/02/17 Rx Active Meds: Active Medications Albumin Human (Alburx 25% (Albumin)) 12.5 gm IV IVONNE PRN PRN Reason: Hypotension Aspirin (Baby Aspirin) 81 mg PO QDAY [facility] Atorvastatin Calcium (Lipitor) 80 mg PO QHS [facility] Carvedilol (Coreg) 25 mg PO BID [facility] Docusate Sodium (Colace) 100 mg PO BID [facility] Epoetin Mustapha (Procrit) 10,000 unit IV IVONNE PRN PRN Reason: hemodialysis Famotidine (Pepcid) 20 mg PO QDAY [facility] Heparin Sodium (Porcine) (Heparin) 5,000 unit IV IVONNE PRN PRN Reason: hemodialysis Sodium Chloride (Nacl 0.9%) 100 mls @ 999 mls/hr IV IVONNE PRN PRN Reason: Hypotension Isosorbide Mononitrate (Imdur) 30 mg PO QDAY [facility] Megestrol Acetate (Megace) 20 mg PO BID [facility] Miscellaneous Medication (Sevelamer Carbonate [Renvela]) 1,200 mg PO TID [facility] Nifedipine (Procardia Xl) 90 mg PO QDAY [facility] Review of Systems Constitutional: fatigue, weakness, no weight loss, no weight gain, no fever, no chills Ears, nose, mouth and throat: no nasal congestion, no nasal discharge Cardiovascular: no chest pain, no orthopnea, no palpitations, no shortness of breath Respiratory: no cough with sputum, no hemoptysis Gastrointestinal: no abdominal pain, no nausea, no vomiting Genitourinary Female: abnormal vaginal bleeding, other (vaginal bleeding) Musculoskeletal: no myalgias, no arthritis Integumentary: no rash, no lesions Neurological: no weakness, no seizures, no syncope Psychiatric: no anxiety, no depression Endocrine: no cold intolerance, no heat intolerance, no polydipsia, no polyuria Hematologic/Lymphatic: no easy bruising, no easy bleeding Allergic/Immunologic: no urticaria, no allergic rhinitis Exam - Constitutional Vitals: Temp Pulse Resp BP Pulse Ox 97.4 F L 76 19 125/82 100 10/04/17 08:29 10/04/17 11:00 10/04/17 11:00 10/04/17 11:00 10/04/17 11:00 General appearance: Present: no acute distress, well-nourished - EENT Eyes: Present: PERRL, EOM intact - Neck Neck: Present: supple, normal ROM - Respiratory Respiratory effort: normal Respiratory: negative: rales, rhonchi, wheezing - Cardiovascular Rhythm: regular Heart Sounds: Present: S1 & S2 - Extremities Extremities: no ischemia, No edema - Abdominal General gastrointestinal: Present: soft, non-tender, non-distended, normal bowel sounds - Integumentary Integumentary: Present: clear, warm - Musculoskeletal Musculoskeletal: strength equal bilaterally - Psychiatric Psychiatric: appropriate mood/affect, cooperative - Neurologic Neurologic: CNII-XII intact, moves all extremities Results - Labs CBC & Chem 7: 10/04/17 08:37 10/04/17 08:37 Labs: Abnormal lab results 10/04/17 10/04/17 10/04/17 Range/Units 08:37 08:37 08:37 WBC 12.7 H (4.5-11.0) K/mm3 MCH 27 L (28-32) pg RDW 20.0 H (13.2-15.2) % Lymph % (Auto) 7.1 L (13.4-35.0) % Lymph # 0.9 L (1.2-5.4) K/mm3 Seg Neutrophils % 85.5 H (40.0-70.0) % Seg Neutrophils # 10.9 H (1.8-7.7) K/mm3 PT 16.6 H (12.2-14.9) Sec. INR 1.27 H (0.87-1.13) Sodium 135 L (137-145) mmol/L Chloride 95.4 L (98-107) mmol/L BUN 52 H (7-17) mg/dL Creatinine 7.0 H (0.7-1.2) mg/dL Troponin T (0.00-0.029) ng/mL NT-Pro-B Natriuret Pep (0-900) pg/mL LDL Cholesterol Direct (50-130) mg/dL HDL Cholesterol (40-59) mg/dL 10/04/17 Range/Units 08:37 WBC (4.5-11.0) K/mm3 MCH (28-32) pg RDW (13.2-15.2) % Lymph % (Auto) (13.4-35.0) % Lymph # (1.2-5.4) K/mm3 Seg Neutrophils % (40.0-70.0) % Seg Neutrophils # (1.8-7.7) K/mm3 PT (12.2-14.9) Sec. INR (0.87-1.13) Sodium (137-145) mmol/L Chloride (98-107) mmol/L BUN (7-17) mg/dL Creatinine (0.7-1.2) mg/dL Troponin T 0.072 H (0.00-0.029) ng/mL NT-Pro-B Natriuret Pep 6794 H (0-900) pg/mL LDL Cholesterol Direct 16 L (50-130) mg/dL HDL Cholesterol 33 L (40-59) mg/dL Assessment and Plan --Stage renal disease on hemodialysis; Saturday, HD due to the Nephrology consulted, hemodialysis per schedule --Hypertension; moderate controlled Resume home antihypertensives and when necessary medications --Vaginal bleeding; Secondary to cervical cancer, patient scheduled to follow with COATER HELPER Oncology for further evaluation and management --Squamous cell carcinoma primary not known most likely cervical cancer Continue supportive care, COATER HELPER, hematology oncologist have evaluated the patient before --Atypical chest pain; patient had negative stress test recently Continue symptomatic management --Severe Malnutrition; hypoalbuminemia Nutritional supplement, supportive care --DVT prophylaxis; Lovenox --Full CODE STATUS Closely monitor the patient and adjust management as needed
[2017-10-04] MEDS ORDERED: BENADRYL PO ONE (13:30)
[2017-10-04] MEDS: PERCOCET 5/325 PO ONE ×2 (13:45→13:49)
[2017-10-04] MEDS ORDERED: SEVELAMER CARBONATE PO SCH (14:00)
--- NOTE | 2017-10-04 14:09 | Consultation ---
History of Present Illness Consult date: 10/04/17 History of present illness: Pt is a 62-year-old woman a history of hypertension, end-stage renal disease on dialysis Saturday, Saturday, Saturday, CHF comes emergency room with complaints of chest pain rad to left arm, chronic post menopausal vaginal bleeding CT chest, image reviewed Lung nodules and abnormalities associated with the ribs, possible metastases Post menopausal Vaginal bleeding - concern for gynecological malignancy that has now possibly metastasized to her lungs and ribs. Patient was seen by Dr. Alejo and she is scheduled to follow-up with him Medications and Allergies Allergies Allergy/AdvReac Type Severity Reaction Status Date / Time acetaminophen [From Percocet] Allergy Nausea Verified 10/04/17 13:51 cefazolin sodium [From Ancef] Allergy Rash Verified 05/25/13 08:00 lisinopril Allergy Angioedema Verified 02/25/17 20:06 oxycodone [From Percocet] Allergy Nausea Verified 10/04/17 13:51 Penicillins Allergy Rash Verified 05/25/13 08:00 phenytoin sodium Allergy Rash Verified 05/25/13 08:00 [From Dilantin] phenytoin sodium extended Allergy Rash Verified 05/25/13 08:00 [From Dilantin] Sulfa (Sulfonamide Allergy Rash Verified 05/25/13 08:00 Antibiotics) Home Medications Medication Instructions Recorded Confirmed Last Taken Type Aspirin [Aspirin BABY CHEW TAB] 81 mg PO QDAY #30 tab.chew 02/28/17 10/04/17 Rx Carvedilol [Coreg] 25 mg PO BID 08/30/17 10/04/17 10/02/17 History Megestrol [Megace] 20 mg PO BID 08/30/17 10/04/17 10/02/17 History Sevelamer Carbonate [Renvela] 1,200 mg PO TID 08/30/17 10/04/17 10/02/17 History Vit B Comp No.3/Folic/C/Biotin 1 each PO DAILY 08/30/17 10/04/17 10/02/17 History [Filler Block Inserter Remover-Romero Rx Tablet] Acetaminophen [Acetaminophen TAB] 650 mg PO Q4H PRN tablet 09/18/17 10/04/17 Unknown Rx Docusate Sodium [Colace CAP] 100 mg PO BID capsule 09/18/17 10/04/17 Unknown Rx Famotidine [Pepcid] 20 mg PO QDAY tablet 09/18/17 10/04/17 Unknown Rx ISOSORBIDE MONOnitrate [Imdur ER] 30 mg PO QDAY tablet 09/18/17 10/04/17 Rx NIFEdipine XL [Procardia Xl] 90 mg PO QDAY tablet 09/18/17 10/04/17 10/02/17 Rx Nitroglycerin [Nitrostat] 0.4 mg SL .Q5MIN PRN tablet 09/18/17 10/04/17 Unknown Rx diphenhydrAMINE [Benadryl CAP] 25 mg PO Q6H PRN capsule 09/18/17 10/04/17 Unknown Rx AtorvaSTATin [Lipitor] 80 mg PO QHS tablet 09/23/17 10/04/17 10/02/17 Rx Active Meds: Active Medications Albumin Human (Alburx 25% (Albumin)) 12.5 gm IV IVONNE PRN PRN Reason: Hypotension Aspirin (Baby Aspirin) 81 mg PO QDAY [facility] Atorvastatin Calcium (Lipitor) 80 mg PO QHS [facility] Carvedilol (Coreg) 25 mg PO BID [facility] Docusate Sodium (Colace) 100 mg PO BID [facility] Epoetin Mustapha (Procrit) 10,000 unit IV IVONNE PRN PRN Reason: hemodialysis Famotidine (Pepcid) 20 mg PO QDAY [facility] Heparin Sodium (Porcine) (Heparin) 5,000 unit IV IVONNE PRN PRN Reason: hemodialysis Sodium Chloride (Nacl 0.9%) 100 mls @ 999 mls/hr IV IVONNE PRN PRN Reason: Hypotension Isosorbide Mononitrate (Imdur) 30 mg PO QDAY [facility] Megestrol Acetate (Megace) 20 mg PO BID [facility] Nifedipine (Procardia Xl) 90 mg PO QDAY [facility] Oxycodone/Acetaminophen (Percocet 5/325) 1 tab PO Q8H PRN PRN Reason: Pain, Moderate (4-6) Sevelamer Carbonate (Renvela) 800 mg PO AC [facility] - Vital Signs Vital signs: Vital Signs Temp Pulse Resp BP Pulse Ox 97.4 F L 75 21 128/78 93 10/04/17 08:29 10/04/17 08:29 10/04/17 08:29 10/04/17 08:29 10/04/17 08:29 Temp Pulse Resp BP Pulse Ox 97.7 F 80 22 147/86 98 10/04/17 11:48 10/04/17 11:48 10/04/17 11:48 10/04/17 11:47 10/04/17 11:48 Results Result Diagrams: 10/04/17 08:37 10/04/17 08:37 Abnormal lab results 10/04/17 10/04/17 10/04/17 Range/Units 08:37 08:37 08:37 WBC 12.7 H (4.5-11.0) K/mm3 MCH 27 L (28-32) pg RDW 20.0 H (13.2-15.2) % Lymph % (Auto) 7.1 L (13.4-35.0) % Lymph # 0.9 L (1.2-5.4) K/mm3 Seg Neutrophils % 85.5 H (40.0-70.0) % Seg Neutrophils # 10.9 H (1.8-7.7) K/mm3 PT 16.6 H (12.2-14.9) Sec. INR 1.27 H (0.87-1.13) Sodium 135 L (137-145) mmol/L Chloride 95.4 L (98-107) mmol/L BUN 52 H (7-17) mg/dL Creatinine 7.0 H (0.7-1.2) mg/dL Troponin T (0.00-0.029) ng/mL NT-Pro-B Natriuret Pep (0-900) pg/mL LDL Cholesterol Direct (50-130) mg/dL HDL Cholesterol (40-59) mg/dL 10/04/17 Range/Units 08:37 WBC (4.5-11.0) K/mm3 MCH (28-32) pg RDW (13.2-15.2) % Lymph % (Auto) (13.4-35.0) % Lymph # (1.2-5.4) K/mm3 Seg Neutrophils % (40.0-70.0) % Seg Neutrophils # (1.8-7.7) K/mm3 PT (12.2-14.9) Sec. INR (0.87-1.13) Sodium (137-145) mmol/L Chloride (98-107) mmol/L BUN (7-17) mg/dL Creatinine (0.7-1.2) mg/dL Troponin T 0.072 H (0.00-0.029) ng/mL NT-Pro-B Natriuret Pep 6794 H (0-900) pg/mL LDL Cholesterol Direct 16 L (50-130) mg/dL HDL Cholesterol 33 L (40-59) mg/dL All other labs normal. Assessment and Plan A: Cervical cancer P: -Please see Dr Boyle consult dated 08/30/17 -Will sign off now - Patient Problems (1) Metastatic cancer Current Visit: Yes Status: Acute
[2017-10-04] MEDS: RENVELA PO SCH (14:33)
[2017-10-04] MEDS: NORCO 5/325 PO PRN ×2 (14:33→22:30)
--- NOTE | 2017-10-04 16:01 | Consultation ---
History of Present Illness - Reason for Consult Consult date: 10/04/17 end stage renal disease Requesting physician: CARLEE GORDON - History of Present Illness Exhaled relatively history of end-stage renal disease undergoing evaluation for vaginal bleeding present secondary to cervical cancer. Patient had supraclavicular lymph node biopsy which showed carcinoma with unknown primary. She had cervical biopsy result was pending at the time of discharge. Presents now on account of vaginal bleeding which got was when she got to dialysis. Patient had not been started on dialysis. She had profuse bleeding with clots associated with lower abdominal cramps which felt like menstrual cramps. She was sent to the hospital for further management. Patient has not seen a emergency planning and response manager, SMALL BUSINESS DIRECTOR oncologist or medical oncologist since discharge from the hospital. She denies any chest pain or shortness of breath. Does admit to some lower extremity swelling. She did not receive her routine dialysis today. I'm consulted to provide dialysis and manage her fluid and electrolyte abnormalities. Past History Past Medical History: CAD, cancer (cervical cancer), dialysis, ESRD, heart failure, hypertension Past Surgical History: Other (AV access placement, Permacath placement) Social history: , lives with family, full code. denies: smoking, alcohol abuse, prescription drug abuse Family history: hypertension, other (Father had congestive heart failure and ESRD) Medications and Allergies Allergies Allergy/AdvReac Type Severity Reaction Status Date / Time acetaminophen [From Percocet] Allergy Nausea Verified 10/04/17 13:51 cefazolin sodium [From Ancef] Allergy Rash Verified 05/25/13 08:00 lisinopril Allergy Angioedema Verified 02/25/17 20:06 oxycodone [From Percocet] Allergy Nausea Verified 10/04/17 13:51 Penicillins Allergy Rash Verified 05/25/13 08:00 phenytoin sodium Allergy Rash Verified 05/25/13 08:00 [From Dilantin] phenytoin sodium extended Allergy Rash Verified 05/25/13 08:00 [From Dilantin] Sulfa (Sulfonamide Allergy Rash Verified 05/25/13 08:00 Antibiotics) Home Medications Medication Instructions Recorded Confirmed Last Taken Type Aspirin [Aspirin BABY CHEW TAB] 81 mg PO QDAY #30 tab.chew 02/28/17 10/04/17 Rx Carvedilol [Coreg] 25 mg PO BID 08/30/17 10/04/17 10/02/17 History Megestrol [Megace] 20 mg PO BID 08/30/17 10/04/17 10/02/17 History Sevelamer Carbonate [Renvela] 1,200 mg PO TID 08/30/17 10/04/17 10/02/17 History Vit B Comp No.3/Folic/C/Biotin 1 each PO DAILY 08/30/17 10/04/17 10/02/17 History [Organ Pipe Finisher-Romero Rx Tablet] Acetaminophen [Acetaminophen TAB] 650 mg PO Q4H PRN tablet 09/18/17 10/04/17 Unknown Rx Docusate Sodium [Colace CAP] 100 mg PO BID capsule 09/18/17 10/04/17 Unknown Rx Famotidine [Pepcid] 20 mg PO QDAY tablet 09/18/17 10/04/17 Unknown Rx ISOSORBIDE MONOnitrate [Imdur ER] 30 mg PO QDAY tablet 09/18/17 10/04/17 Rx NIFEdipine XL [Procardia Xl] 90 mg PO QDAY tablet 09/18/17 10/04/17 10/02/17 Rx Nitroglycerin [Nitrostat] 0.4 mg SL .Q5MIN PRN tablet 09/18/17 10/04/17 Unknown Rx diphenhydrAMINE [Benadryl CAP] 25 mg PO Q6H PRN capsule 09/18/17 10/04/17 Unknown Rx AtorvaSTATin [Lipitor] 80 mg PO QHS tablet 09/23/17 10/04/17 10/02/17 Rx Active Meds: Active Medications Acetaminophen/Hydrocodone Bitart ([place] 5/325) 1 each PO Q8H PRN PRN Reason: Pain, Moderate (4-6) Last Admin: 10/04/17 14:33 Dose: 1 each Albumin Human (Alburx 25% (Albumin)) 12.5 gm IV IVONNE PRN PRN Reason: Hypotension Aspirin (Baby Aspirin) 81 mg PO QDAY [facility] Atorvastatin Calcium (Lipitor) 80 mg PO QHS [facility] Carvedilol (Coreg) 25 mg PO BID [facility] Docusate Sodium (Colace) 100 mg PO BID [facility] Epoetin Mustapha (Procrit) 10,000 unit IV IVONNE PRN PRN Reason: hemodialysis Famotidine (Pepcid) 20 mg PO QDAY [facility] Heparin Sodium (Porcine) (Heparin) 5,000 unit IV IVONNE PRN PRN Reason: hemodialysis Sodium Chloride (Nacl 0.9%) 100 mls @ 999 mls/hr IV IVONNE PRN PRN Reason: Hypotension Isosorbide Mononitrate (Imdur) 30 mg PO QDAY [facility] Megestrol Acetate (Megace) 20 mg PO BID [facility] Nifedipine (Procardia Xl) 90 mg PO QDAY [facility] Oxycodone/Acetaminophen (Percocet 5/325) 1 tab PO Q8H PRN PRN Reason: Pain, Moderate (4-6) Sevelamer Carbonate (Renvela) 800 mg PO AC [facility] Last Admin: 10/04/17 14:33 Dose: 800 mg Review of Systems All systems: negative (Constitutional: no fever or chills. No anorexia or weight loss. HEENT: No sore throat or sinus drainage no hearing or vision impairment . Cardiovascular: Admits to chest pain and shortness of breath. No palpitations but admits to lower extremity swelling. No dizziness. Respiratory : No cough, sputum, shortness of breath, hemoptysis or wheezing. Gastrointestinal: No nausea, vomiting, diarrhea, abdominal pain, hematemesis or melena. Genitourinary: Vaginal bleeding as noted. Patient does not make urine.. hematologic: No abnormal bleeding other than vaginal. No easy bruising. Integumentary: no pruritus but admits to dry skin with hands peeling. Neurological: Admits to headache no focal weakness or numbness, no syncope or seizures. Musculoskeletal: Admits to lower extremity joint pains no stiffness. Psychiatry: no anxiety but admits to depression) Exam - Vital Signs Vital signs: Vital Signs Temp Pulse Resp BP Pulse Ox 97.4 F L 75 21 128/78 93 10/04/17 08:29 10/04/17 08:29 10/04/17 08:29 10/04/17 08:29 10/04/17 08:29 - Physical Exam Narrative exam: Middle-aged -Wallisian female lying in bed in no acute distress HEENT: NCAT, pink oral mucous membrane Neck: Supple, no venous distention CVS: S1S2 RRR with no murmur, rub or gallop Chest: Clear to auscultation Abdomen: Protuberant, soft, mild suprapubic tenderness, no organomegaly, bowel sounds are present Extremities: Mild pitting edema, no clubbing Skin: Warm and dry, no rash Genitourinary deferred Neuro: Awake, alert no focal deficits Results - Lab Results 10/04/17 08:37 10/04/17 08:37 Most recent lab results Calcium 9.0 mg/dL (8.4-10.2) 10/04/17 08:37 Assessment and Plan - Patient Problems (1) Vaginal bleeding Current Visit: Yes Status: Acute Plan to address problem: Being evaluated by emergency planning and response manager. Needs follow-up with SMALL BUSINESS DIRECTOR oncologist as an outpatient (2) Acute post-hemorrhagic anemia Current Visit: No Status: Acute (3) End-stage renal disease needing dialysis Current Visit: Yes Status: Acute Plan to address problem: Hemodialysis today on a 2 K bath. Attempt 2 liters fluid removal as tolerated. (4) Hypertensive chronic kidney disease with stage 5 chronic kidney disease or end stage renal disease Current Visit: Yes Status: Acute Plan to address problem: Follow-up blood pressure on current medications (5) Bilateral pleural effusion Current Visit: Yes Status: Acute Plan to address problem: Continue fluid removal on dialysis. (6) Chronic systolic heart failure Current Visit: No Status: Acute Plan to address problem: Continue beta ling and fluid removal on dialysis (7) Superior vena cava syndrome Current Visit: No Status: Acute Plan to address problem: No intervention necessary at this time per Vascular surgeon
[2017-10-04] MEDS ORDERED: NACL 0.9 (PRIMING MACHINE ONLY DIALYSIS) MC ONE (17:13)
[2017-10-04] MEDS: PEPCID PO SCH (18:11)
[2017-10-04] MEDS: COLACE PO SCH (22:24)
[2017-10-04] MEDS: PERCOCET 5/325 PO PRN (22:24)
[2017-10-04] MEDS: MEGACE PO SCH (22:25)
[2017-10-04] MEDS: COREG PO SCH (22:25)
[2017-10-05 07:39] LABS: Calcium 9.1 mg/dL (8.4-10.2)
[2017-10-05 07:45] LABS: Basophils % (Auto) 0.5 % (0.0-1.8); Eosinophils # (Auto) 0.1 K/mm3 (0.0-0.4); Eosinophils % (Auto) 0.9 % (0.0-4.3); Hematocrit 31.9 % (30.3-42.9); Hemoglobin 10.1 gm/dl (10.1-14.3); Lymphocytes # (Auto) 0.9 K/mm3 (1.2-5.4); Lymphocytes % (Auto) 10.8 % (13.4-35.0); Mean Corpuscular HGB Conc 32 % (30-34); Mean Corpuscular Hemoglobin 28 pg (28-32); Mean Corpuscular Volume 87 fl (79-97); Monocytes # (Auto) 0.7 K/mm3 (0.0-0.8); Platelet Count 263 K/mm3 (140-440); Red Blood Count 3.67 M/mm3 (3.65-5.03)
[2017-10-05 07:47] LABS: Red Cell Distribution Width 20.2 % (13.2-15.2)
[2017-10-05] MEDS: RENVELA PO SCH (08:26)
[2017-10-05] MEDS: NORCO 5/325 PO PRN (08:26)
--- NOTE | 2017-10-05 09:05 | Discharge Summary ---
Providers - Providers Date of Admission: 10/04/17 10:14 Date of discharge: 10/05/17 Attending physician: NICK SINGLETON 10/04/17 10:12 Consult to Physician [CONS] Urgent Comment: Consulting Provider: ELIGIO BLOCK Physician Instructions: Reason For Exam: vaginal bleeding recent supraclavicular node + CA 10/04/17 10:14 Consult to Physician [CONS] Urgent Comment: Consulting Provider: LESTER KITCHEN Physician Instructions: Reason For Exam: ESRD needing dialysis Primary care physician: MAINSPRING WINDER Hospitalization Reason for admission: vaginal bleeding Condition: Stable Pertinent studies: Chest x-ray; small bilateral pleural effusions and bibasilar atelectasis Subtle scattered pulmonary nodules[possible metastatic lesions] Hospital course: 62-year-old -Thai female patient multiple medical problems Well-known to our services multiple admissions in the past Was admitted through emergency room with vaginal bleeding Evaluated and admitted to the hospital, symptomatically managed ELECTRONIC SCALE TESTER has evaluated the patient, advised outpatient follow-up for further evaluation and management Patient's H&H was stable Seen by nephrology received hemodialysis per schedule Symptoms significantly improved Today patient is comfortable in no new complaints Vital signs stable Hemodynamically and clinically stable for discharge And follow up with primary care physician, ELECTRONIC SCALE TESTER, nephrology and hemodialysis per schedule Patient is stable at discharge Discharge diagnosis; --End-stage renal disease on hemodialysis[MWF] --Hypertension --Metastatic cervical cancer/squamous cell carcinoma --Vaginal bleeding/blood loss anemia --Atypical chest pain resolved --Severe malnutrition Disposition: [id number]/[place]-03 [facility] Time spent for discharge: 32 min Core Measure Documentation - Palliative Care Palliative Care/ Comfort Measures: Not Applicable - Core Measures Any of the following diagnoses?: none Exam - Constitutional Vitals: Temp Pulse Resp BP Pulse Ox 97.6 F 81 18 148/98 100 10/05/17 08:09 10/05/17 08:09 10/05/17 08:26 10/05/17 08:09 10/05/17 08:09 General appearance: Present: no acute distress, well-nourished - EENT Eyes: Present: PERRL, EOM intact - Neck Neck: Present: supple, normal ROM - Respiratory Respiratory effort: normal Respiratory: negative: rales, rhonchi, wheezing - Cardiovascular Rhythm: regular Heart Sounds: Present: S1 & S2 - Extremities Extremities: no ischemia, No edema Peripheral Pulses: within normal limits - Abdominal General gastrointestinal: Present: soft, non-tender, non-distended, normal bowel sounds - Integumentary Integumentary: Present: clear, warm - Musculoskeletal Musculoskeletal: strength equal bilaterally - Psychiatric Psychiatric: appropriate mood/affect, cooperative - Neurologic Neurologic: CNII-XII intact, moves all extremities Plan Activity: no restrictions Diet: renal Additional Instructions: follow-up renal/hemodialysis per schedule[MWF] Follow up with: PRIMARY CAREMD [Primary Care Provider] - 3-5 Days TIERA COURTNEY MD [Staff Physician] - 7 Days
[2017-10-05] MEDS ORDERED: IMDUR PO SCH (10:00)
[2017-10-05] MEDS ORDERED: BABY ASPIRIN PO SCH (10:00)
[2017-10-05] MEDS ORDERED: PROCARDIA XL PO SCH (10:00)
[2017-10-05] MEDS: COREG PO SCH (10:26)
[2017-10-05] MEDS: PEPCID PO SCH (10:26)
[2017-10-05] MEDS: PERCOCET 5/325 PO PRN (10:27)
[2017-10-05] MEDS: MEGACE PO SCH (10:27)
[2017-10-05] MEDS: COLACE PO SCH (10:31)
--- NOTE | 2017-10-05 10:42 | Progress Note ---
Assessment and Plan - Patient Problems (1) Vaginal bleeding Current Visit: Yes Status: Acute Plan to address problem: Being evaluated by facility maintenance technician. Needs follow-up with EMERGENCY MEDICINE PHYSICIAN ASSISTANT oncologist as an outpatient. We will arrange if it's not been done (2) Acute post-hemorrhagic anemia Current Visit: No Status: Acute Plan to address problem: Hemoglobin stable at 10. Follow-up hemoglobin as an outpatient (3) End-stage renal disease needing dialysis Current Visit: Yes Status: Acute Plan to address problem: Continue hemodialysis on a Saturday, Saturday and Saturday schedule as an outpatient (4) Hypertensive chronic kidney disease with stage 5 chronic kidney disease or end stage renal disease Current Visit: Yes Status: Acute Plan to address problem: Follow-up blood pressure on current medications (5) Bilateral pleural effusion Current Visit: Yes Status: Acute Plan to address problem: Continue fluid removal on dialysis. (6) Chronic systolic heart failure Current Visit: No Status: Acute Plan to address problem: Continue beta ling and fluid removal on dialysis (7) Superior vena cava syndrome Current Visit: No Status: Acute Plan to address problem: No intervention necessary at this time per Vascular surgeon Subjective Date of service: 10/05/17 Principal diagnosis: end-stage renal disease, hypertension Interval history: Patient seen sitting up in bed. at bedside. No new complaints. Just feels a bit overwhelmed with everything going on Objective - Exam Narrative Exam: Middle-aged -Sammarinese female lying in bed in no acute distress HEENT: NCAT, pink oral mucous membrane Neck: Supple, no venous distention CVS: S1S2 RRR with no murmur, rub or gallop Chest: Clear to auscultation Abdomen: Protuberant, soft, mild suprapubic tenderness, no organomegaly, bowel sounds are present Extremities: Mild pitting edema, no clubbing Skin: Warm and dry, no rash Genitourinary deferred Neuro: Awake, alert no focal deficits - Vital Signs Vital signs: Vital Signs - 12hr 10/04/17 10/04/17 10/05/17 23:24 23:30 02:10 Temperature 98.7 F Pulse Rate 79 Respiratory 20 18 Rate Respiratory 20 Rate [ Generalized] Blood Pressure 108/74 O2 Sat by Pulse 100 Oximetry 10/05/17 10/05/17 10/05/17 05:12 08:09 08:26 Temperature 98.3 F 97.6 F Pulse Rate 78 81 Respiratory 20 20 18 Rate Respiratory Rate [ Generalized] Blood Pressure 139/82 148/98 O2 Sat by Pulse 96 100 Oximetry 10/05/17 10/05/17 10/05/17 09:26 10:26 10:27 Temperature Pulse Rate 81 Respiratory 18 18 Rate Respiratory Rate [ Generalized] Blood Pressure 148/98 O2 Sat by Pulse Oximetry - Lab 10/05/17 05:33 10/05/17 05:33 Most recent lab results Calcium 9.1 mg/dL (8.4-10.2) 10/05/17 05:33
[2017-10-05] MEDS ORDERED: TYLENOL PO ONE (11:00)
[2017-10-05 11:17] VITALS: BP 123/79
== END 2017-10-05 12:12 | disposition home or self-care (01) | DRG 754 ==
LOC: ED 08:11 → 3A 10:14
PROVIDERS: ADMIT Internal Medicine; ATTEND Internal Medicine
PROC: 5A1D70Z Performance of Urinary Filtration, Intermittent, Less than 6 Hours Per Day (ICD-10-PCS; principal; 2017-10-04)
DX: C53.9 Malignant neoplasm of cervix uteri, unspecified (principal); N18.6 End stage renal disease; E43 Unspecified severe protein-calorie malnutrition; I13.2 Hypertensive heart and chronic kidney disease with heart failure and with stage 5 chronic kidney disease, or end stage renal disease; J90 Pleural effusion, not elsewhere classified; I42.9 Cardiomyopathy, unspecified; D62 Acute posthemorrhagic anemia; I50.22 Chronic systolic (congestive) heart failure; I87.1 Compression of vein; I25.10 Atherosclerotic heart disease of native coronary artery without angina pectoris; E88.09 Other disorders of plasma-protein metabolism, not elsewhere classified; R07.89 Other chest pain; Z79.82 Long term (current) use of aspirin; Z79.899 Other long term (current) drug therapy; Z82.49 Family history of ischemic heart disease and other diseases of the circulatory system; Z68.23 Body mass index [BMI] 23.0-23.9, adult
CPT/HCPCS: 36415; 71045; 80048; 80061; 83880; 84484; 85025; 85610; 85730; 86850; 86870; 86900; 86901; 93005; 93010; A9270-GY; J0885; J1644; J7030

== ENCOUNTER 2017-10-26 23:38 | Inpatient (IN) | payer MEDICARE ==
[2017-10-27] MEDS ORDERED: PEPCID IV ONE (00:16)
[2017-10-27] MEDS ORDERED: BENADRYL IV ONE (00:16)
--- NOTE | 2017-10-27 00:19 | Emergency Department Report ---
ED General Adult HPI - General Chief complaint: Pain General Stated complaint: GENERAL PAIN Time Seen by Provider: 10/27/17 00:05 Source: patient, RN notes reviewed, old records reviewed Mode of arrival: Stretcher Limitations: Physical Limitation - History of Present Illness Initial comments: Nephrology: Dr. Banerjee Cardiology: Dr. 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 Her first complaint is arthralgias, myalgias and body pain. This has been going on for a while, is intermittent, increases with physical exertion and decreases with rest, reports no recent significant trauma. Most of her pain is in her lower extremities. Pain increases with palpation, range of motion and decreases with rest. It does not radiate anywhere. Patient also complains of lip swelling. This is nontraumatic. There she is not sure if it is involving her tongue. She thinks that she is up on her water weight. She's not sure if her tongue is swollen. Her family member thinks that she is not speaking correctly. This is constant for the past 24 hours, is not radiating anywhere, does not have exacerbating or relieving factors. -: Gradual Location: mouth, back, left, right, upper extremity, lower extremity Radiation: non-radiation Severity scale (0 -10): 6 Quality: aching Consistency: intermittent Improves with: rest Worsens with: movement Associated Symptoms: cough, loss of appetite, malaise, shortness of breath ( chronic), weakness (chronic). denies: confusion, chest pain, diaphoresis, fever /chills, headaches, nausea/vomiting, rash, seizure - Related Data Home Medications Medication Instructions Recorded Confirmed Last Taken Carvedilol [Coreg] 25 mg PO BID 08/30/17 10/04/17 10/02/17 Megestrol [Megace] 20 mg PO BID 08/30/17 10/04/17 10/02/17 Sevelamer Carbonate [Renvela] 1,200 mg PO TID 08/30/17 10/04/17 10/02/17 Vit B Comp No.3/Folic/C/Biotin 1 each PO DAILY 08/30/17 10/04/17 10/02/17 [Box Sorter-Romero Rx Tablet] Previous Rx's Medication Instructions Recorded Last Taken Type Aspirin [Aspirin BABY CHEW TAB] 81 mg PO QDAY #30 tab.chew 02/28/17 10/04/17 Rx Acetaminophen [Acetaminophen TAB] 650 mg PO Q4H PRN tablet 09/18/17 Unknown Rx Docusate Sodium [Colace CAP] 100 mg PO BID capsule 09/18/17 Unknown Rx Famotidine [Pepcid] 20 mg PO QDAY tablet 09/18/17 Unknown Rx ISOSORBIDE MONOnitrate [Imdur ER] 30 mg PO QDAY tablet 09/18/17 10/02/17 Rx NIFEdipine XL [Procardia Xl] 90 mg PO QDAY tablet 09/18/17 10/02/17 Rx Nitroglycerin [Nitrostat] 0.4 mg SL .Q5MIN PRN tablet 09/18/17 Unknown Rx diphenhydrAMINE [Benadryl CAP] 25 mg PO Q6H PRN capsule 09/18/17 Unknown Rx AtorvaSTATin [Lipitor] 80 mg PO QHS tablet 09/23/17 10/02/17 Rx Allergies Allergy/AdvReac Type Severity Reaction Status Date / Time acetaminophen [From Percocet] Allergy Nausea Verified 10/04/17 13:51 cefazolin sodium [From Ancef] Allergy Rash Verified 05/25/13 08:00 lisinopril Allergy Angioedema Verified 02/25/17 20:06 oxycodone [From Percocet] Allergy Nausea Verified 10/04/17 13:51 Penicillins Allergy Rash Verified 05/25/13 08:00 phenytoin sodium Allergy Rash Verified 05/25/13 08:00 [From Dilantin] phenytoin sodium extended Allergy Rash Verified 05/25/13 08:00 [From Dilantin] Sulfa (Sulfonamide Allergy Rash Verified 05/25/13 08:00 Antibiotics) ED Review of Systems ROS: Stated complaint: GENERAL PAIN Other details as noted in HPI Constitutional: malaise, weakness Eyes: denies: vision change ENT: denies: epistaxis Respiratory: shortness of breath (chronic) Cardiovascular: edema (chronic) Gastrointestinal: denies: vomiting Musculoskeletal: back pain, arthralgia Neurological: weakness (chronic) ED Past Medical Hx - Past Medical History Previous Medical History?: Yes Hx Hypertension: Yes Hx Congestive Heart Failure: Yes Hx Diabetes: No Hx Renal Disease: Yes (dialysis M-W-F) Hx Asthma: No Hx COPD: Yes - Surgical History Additional Surgical History: bilateral nephrectomy. permacath left chest - Social History Smoking Status: Never Smoker Substance Use Type: None - Medications Home Medications: Home Medications Medication Instructions Recorded Confirmed Last Taken Type Aspirin [Aspirin BABY CHEW TAB] 81 mg PO QDAY #30 tab.chew 02/28/17 10/04/17 Rx Carvedilol [Coreg] 25 mg PO BID 08/30/17 10/04/17 10/02/17 History Megestrol [Megace] 20 mg PO BID 08/30/17 10/04/17 10/02/17 History Sevelamer Carbonate [Renvela] 1,200 mg PO TID 08/30/17 10/04/17 10/02/17 History Vit B Comp No.3/Folic/C/Biotin 1 each PO DAILY 08/30/17 10/04/17 10/02/17 History [Box Sorter-Romero Rx Tablet] Acetaminophen [Acetaminophen TAB] 650 mg PO Q4H PRN tablet 09/18/17 10/04/17 Unknown Rx Docusate Sodium [Colace CAP] 100 mg PO BID capsule 09/18/17 10/04/17 Unknown Rx Famotidine [Pepcid] 20 mg PO QDAY tablet 09/18/17 10/04/17 Unknown Rx ISOSORBIDE MONOnitrate [Imdur ER] 30 mg PO QDAY tablet 09/18/17 10/04/17 Rx NIFEdipine XL [Procardia Xl] 90 mg PO QDAY tablet 09/18/17 10/04/17 10/02/17 Rx Nitroglycerin [Nitrostat] 0.4 mg SL .Q5MIN PRN tablet 09/18/17 10/04/17 Unknown Rx diphenhydrAMINE [Benadryl CAP] 25 mg PO Q6H PRN capsule 09/18/17 10/04/17 Unknown Rx AtorvaSTATin [Lipitor] 80 mg PO QHS tablet 09/23/17 10/04/17 10/02/17 Rx ED Physical Exam - General Limitations: Physical Limitation General appearance: alert, in no apparent distress - Head Head exam: Present: atraumatic, normocephalic - Eye Eye exam: Present: normal appearance, PERRL, EOMI. Absent: nystagmus - ENT ENT exam: Present: mucous membranes moist, normal external ear exam. Absent: normal exam, normal orophraynx (external lip swelling is noted on the superior and inferior lip. The patient is speaking in full sentences. No obvious uvula involvement is noted. Tongue appears to be slightly larger than normal.) - Neck Neck exam: Present: normal inspection, full ROM. Absent: tenderness, meningismus - Respiratory Respiratory exam: Present: decreased breath sounds, other (left-sided hemodialysis access catheter is noted.). Absent: respiratory distress - Cardiovascular Cardiovascular Exam: Present: regular rate, normal rhythm, normal heart sounds. Absent: bradycardia, tachycardia, irregular rhythm, systolic murmur, diastolic murmur, rubs, gallop - GI/Abdominal GI/Abdominal exam: Present: soft. Absent: distended, guarding, rebound, rigid, pulsatile mass - Extremities Exam Extremities exam: Present: full ROM, pedal edema, other (2+ pitting edema noted in the bilateral lower extremities. Left upper extremity is noted to be swollen. There is a left upper extremity graft which is nonfunctional.). Absent: tenderness (there is no long bony tenderness. The compartments are soft. 2+ pulses noted in the bilateral upper, lower extremities. Pelvis is stable.), calf tenderness - Back Exam Back exam: Present: normal inspection. Absent: paraspinal tenderness - Neurological Exam Neurological exam: Present: alert, oriented X3, CN II-XII intact, other ( Extraocular movements intact. Tongue midline. No facial droop. Facial sensation intact to light touch in the V1, V2, V3 distribution bilaterally. 5 and 5 strength in 4 extremities.. Sensation is intact to light touch in 4 extremities.). Absent: motor sensory deficit - Psychiatric Psychiatric exam: Present: normal affect, normal mood - Skin Skin exam: Present: warm, dry, intact, normal color. Absent: rash ED Course Vital Signs 10/27/17 00:05 Temperature 98.0 F Pulse Rate 81 Respiratory 18 Rate Blood Pressure 100/83 [Right] O2 Sat by Pulse 100 Oximetry - Reevaluation(s) Reevaluation #1: 10/27/17 01:01 Differential diagnoses, including but not limited to: Renal osteodystrophy, arthritis, chronic renal insufficiency, hyperkalemia, idiopathic angioedema, fluid overload Assessment and plan: 62-year-old female with multiple issues. Her musculoskeletal pain is a chronic condition, there is no clinical indication of fracture, dislocation, or active infectious process. She is unfortunately allergic to oxycodone and acetaminophen, given her underlying renal insufficiency, is not a candidate for NSAID therapy. This musculoskeletal pain does not appear to be an emergent condition and He followed up/managed as an outpatient. The patient also has what appears to be idiopathic angioedema of the lips, may be presentation of fluid overload, also has periorbital edema, and review of medications is not demonstrated YANE inhibitor's. Family and patient says that this is new. She will be treated empirically with Pepcid, Benadryl, Solu- Medrol. X-ray of the chest and straight chronic bilateral pleural effusions. Basic laboratory studies pending. Patient will likely be admitted to the hospital for airway observation. 10/27/17 01:01 Reevaluation #2: 10/27/17 02:10 The patient is reassessed. Her lip swelling has not improved. Her laboratory studies are reviewed and are appreciated. Her paperboard boxes estimator is adolph. Hospital physician, Dr. Ramos, accepted the patient for airway observation for presumed idiopathic angioedema. ED Medical Decision Making - Lab Data Result diagrams: 10/27/17 00:49 10/27/17 00:50 Vital Signs 10/27/17 00:05 Temperature 98.0 F Pulse Rate 81 Respiratory 18 Rate Blood Pressure 100/83 [Right] O2 Sat by Pulse 100 Oximetry - Radiology Data Radiology results: image reviewed interpreted by me: X-ray of the chest demonstrates large bilateral pleural effusions, left-sided vas cath is noted. Critical care attestation.: If time is entered above; I have spent that time in minutes in the direct care of this critically ill patient, excluding procedure time. ED Disposition Clinical Impression: ESRD (end stage renal disease), Bilateral pleural effusion, Angioedema Disposition: OP ADMIT IP TO THIS HOSP Is pt being admited?: Yes Condition: Fair Referrals: PRIMARY CARE, [Primary Care Provider] - 3-5 Days
--- NOTE | 2017-10-27 01:01 | XRay Report ---
FINAL REPORT EXAM: XR CHEST 1V AP HISTORY: hypoxia COMPARISON: September 20, 2017 FINDINGS: Frontal view(s) of the chest obtained. Stable mild cardiac enlargement. Left IJ line remains in place. No persistent airspace consolidations mid to lower lungs with moderate bilateral pleural effusions. Findings are slightly progressed on the left. No pneumothorax. Stable nodular opacities right upper lung. IMPRESSION: Slight progression of airspace consolidation left mid to lower lung with moderate effusion. Stable consolidation right mid to lower lung with moderate effusion nodular densities.
[2017-10-27 01:06] LABS: Mean Corpuscular HGB Conc 30 % (30-34); Mean Corpuscular Hemoglobin 26 pg (28-32); Mean Corpuscular Volume 88 fl (79-97); Platelet Count 391 K/mm3 (140-440); Red Blood Count 3.69 M/mm3 (3.65-5.03); Red Cell Distribution Width 19.9 % (13.2-15.2)
[2017-10-27 01:07] LABS: Hematocrit 32.4 % (30.3-42.9); Hemoglobin 9.7 gm/dl (10.1-14.3)
[2017-10-27 01:39] LABS: INR 1.12 (0.87-1.13)
[2017-10-27 01:57] LABS: Calcium 8.6 mg/dL (8.4-10.2)
[2017-10-27] MEDS ORDERED: ZOFRAN IV PRN (02:31)
[2017-10-27] MEDS ORDERED: SODIUM CHLORIDE FLUSH SYRINGE 10 ML IV PRN (02:31)
[2017-10-27] MEDS ORDERED: D50W (25GM) Syringe IV PRN (02:31)
[2017-10-27] MEDS ORDERED: COLACE PO PRN (02:40)
[2017-10-27] MEDS ORDERED: PEPCID PO SCH (03:00)
--- NOTE | 2017-10-27 03:12 | History and Physical Report ---
History of Present Illness Date of examination: 10/27/17 Chief complaint: Swelling of the face and lips since this ( saturday) morning Confusion and shortness of breath History of present illness: 62-year-old -[place] female with history of end-stage renal disease on hemodialysis, nonischemic cardiomyopathy, with EF of 20-25%, hypertension, COPD and stage IV cervical cancer was transferred [facility] complaints of swelling of the face and lips. Patient is confused and presently quite a poor historian. History is obtained from her who is in the room. Apparently patient was given Percocet in the half-way (stated allergy to codeine) yesterday and when he went to see her on Saturday morning her face and eyes and lips were severely swollen. The gaze some Claritin without any improvement and she was transferred to the ED. Unable to get any further history from the patient as she is confused. There is no history of fever or chills or difficulty in swallowing she is being admitted for new onset angioedema and possibly may need hemodialysis today as per patient is more short of breath than usual. Nephrology was consulted Past History Past Medical History: cancer, COPD, ESRD, heart failure, hypertension, hyperlipidemia Past Surgical History: Other (bilateral nephrectomy ) Social history: no significant social history Family history: hypertension Medications and Allergies Allergies Allergy/AdvReac Type Severity Reaction Status Date / Time acetaminophen [From Percocet] Allergy Nausea Verified 10/04/17 13:51 cefazolin sodium [From Ancef] Allergy Rash Verified 05/25/13 08:00 lisinopril Allergy Angioedema Verified 02/25/17 20:06 oxycodone [From Percocet] Allergy Nausea Verified 10/04/17 13:51 Penicillins Allergy Rash Verified 05/25/13 08:00 phenytoin sodium Allergy Rash Verified 05/25/13 08:00 [From Dilantin] phenytoin sodium extended Allergy Rash Verified 05/25/13 08:00 [From Dilantin] Sulfa (Sulfonamide Allergy Rash Verified 05/25/13 08:00 Antibiotics) Home Medications Medication Instructions Recorded Confirmed Last Taken Type Aspirin [Aspirin BABY CHEW TAB] 81 mg PO QDAY #30 tab.chew 02/28/17 10/04/17 Rx Carvedilol [Coreg] 25 mg PO BID 08/30/17 10/04/17 10/02/17 History Megestrol [Megace] 20 mg PO BID 08/30/17 10/04/17 10/02/17 History Sevelamer Carbonate [Renvela] 1,200 mg PO TID 08/30/17 10/04/17 10/02/17 History Vit B Comp No.3/Folic/C/Biotin 1 each PO DAILY 08/30/17 10/04/17 10/02/17 History [Cmo-Romero Rx Tablet] Acetaminophen [Acetaminophen TAB] 650 mg PO Q4H PRN tablet 09/18/17 10/04/17 Unknown Rx Docusate Sodium [Colace CAP] 100 mg PO BID capsule 09/18/17 10/04/17 Unknown Rx Famotidine [Pepcid] 20 mg PO QDAY tablet 09/18/17 10/04/17 Unknown Rx ISOSORBIDE MONOnitrate [Imdur ER] 30 mg PO QDAY tablet 09/18/17 10/04/17 Rx NIFEdipine XL [Procardia Xl] 90 mg PO QDAY tablet 09/18/17 10/04/17 10/02/17 Rx Nitroglycerin [Nitrostat] 0.4 mg SL .Q5MIN PRN tablet 09/18/17 10/04/17 Unknown Rx diphenhydrAMINE [Benadryl CAP] 25 mg PO Q6H PRN capsule 09/18/17 10/04/17 Unknown Rx AtorvaSTATin [Lipitor] 80 mg PO QHS tablet 09/23/17 10/04/17 10/02/17 Rx Active Meds: Active Medications Acetaminophen (Tylenol) 650 mg PO Q4H PRN PRN Reason: Pain MILD(1-3)/Fever >100.5/DURAND Albuterol/Ipratropium (Duoneb *Not For Prn Use*) 1 ampul IH TIDRT LANEY Atorvastatin Calcium (Lipitor) 80 mg PO QHS LANEY Dextrose (D50w (25gm) Syringe) 50 ml IV PRN PRN PRN Reason: Hypoglycemia Diphenhydramine HCl (Benadryl) 25 mg PO TID LANEY Docusate Sodium (Colace) 100 mg PO BID PRN PRN Reason: Constipation Famotidine (Pepcid) 10 mg PO Q12HR LANEY Heparin Sodium (Porcine) (Heparin) 5,000 unit SUB-Q Q12HR LANEY Isosorbide Mononitrate (Imdur) 30 mg PO QDAY LANEY Methylprednisolone Sodium Succinate (Solu-Medrol) 100 mg IV Q6H LANEY Ondansetron HCl (Zofran) 4 mg IV Q8H PRN PRN Reason: Nausea And Vomiting Sevelamer Carbonate (Renvela) 1,200 mg PO TIDWM LANEY Sodium Chloride (Sodium Chloride Flush Syringe 10 Ml) 10 ml IV BID LANEY Sodium Chloride (Sodium Chloride Flush Syringe 10 Ml) 10 ml IV PRN PRN PRN Reason: LINE FLUSH Review of Systems All systems: negative (unable to perform review of systems and is as stated above in the history of present illness) Exam - Constitutional Vitals: Temp Pulse Resp BP Pulse Ox 98.0 F 81 18 100/83 100 10/27/17 00:05 10/27/17 00:05 10/27/17 00:05 10/27/17 00:05 10/27/17 00:05 General appearance: Present: no acute distress - EENT Eyes: Present: PERRL, EOM intact ENT: hearing intact, clear oral mucosa, other (swelling of the lips, lower and upper and facial swelling) - Neck Neck: Present: supple, normal ROM. Absent: masses or JVD - Respiratory Respiratory effort: normal Respiratory: bilateral: CTA, diminished, negative: rales, rhonchi - Cardiovascular Rhythm: regular Heart Sounds: Present: S1 & S2 - Extremities Extremity abnormal: edema (all extremity edema) - Abdominal General gastrointestinal: Present: soft, non-tender. Absent: hepatomegaly, splenomegaly - Rectal Rectal Exam: deferred - Neurologic Neurologic: no focal deficits, moves all extremities Results - Labs CBC & Chem 7: 10/27/17 00:49 10/27/17 00:50 Labs: Abnormal lab results 10/27/17 10/27/17 10/27/17 Range/Units 00:49 00:49 00:50 Hgb 9.7 L (10.1-14.3) gm/dl MCH 26 L (28-32) pg RDW 19.9 H (13.2-15.2) % PT 15.0 H (12.2-14.9) Sec. Potassium 5.2 H (3.6-5.0) mmol/L Carbon Dioxide 20 L (22-30) mmol/L BUN 39 H (7-17) mg/dL Creatinine 5.7 H (0.7-1.2) mg/dL Glucose 108 H (65-100) mg/dL Magnesium 2.50 H (1.7-2.3) mg/dL NT-Pro-B Natriuret Pep 80664 H (0-900) pg/mL Assessment and Plan - Patient Problems (1) Angioedema Current Visit: Yes Status: Acute Plan to address problem: Most likely drug-induced We will start the patient on intravenous steroids H1 and H2 blockers Per the swelling has already started improving There is no respiratory compromise (2) Primary cervical cancer with metastasis to other site Current Visit: Yes Status: Chronic Plan to address problem: Supportive care (3) End stage renal disease Current Visit: Yes Status: Chronic Plan to address problem: Patient is on hemodialysis Saturday and Saturday Most likely she may need hemodialysis today as the patient is likely fluid overloaded Nephrology consult with Dr. Levine Avoid nephrotoxins Fluid restriction (4) Anemia in chronic kidney disease Current Visit: No Status: Chronic Qualifiers: Chronic kidney disease stage: on chronic dialysis Qualified Code(s): N18.6 - End stage renal disease; D63.1 - Anemia in chronic kidney disease; Z99.2 - Dependence on renal dialysis Plan to address problem: H&H is fair No overt bleeding Monitor H&H (5) CHF exacerbation Current Visit: No Status: Chronic Qualifiers: Heart failure type: systolic Qualified Code(s): I50.23 - Acute on chronic systolic (congestive) heart failure Plan to address problem: With chronic hypoxia Continue O2 supplement Continue nitrates Hemodialysis (6) Fluid overload Current Visit: No Status: Acute Plan to address problem: Await nephrology evaluation see if patient needs hemodialysis today
[2017-10-27] MEDS ORDERED: SEVELAMER CARBONATE PO SCH (08:00)
[2017-10-27] MEDS: RENVELA PO SCH ×3 (08:12→18:31)
--- NOTE | 2017-10-27 08:22 | Event Note ---
Date: 10/27/17 Patient is 71 yo with angioedema. I have seen and examined her. Continue current management.
[2017-10-27] MEDS ORDERED: ALBURX 25% (ALBUMIN) IV PRN (09:45)
[2017-10-27] MEDS ORDERED: NACL 0.9% 100 ML IV PRN (09:45)
[2017-10-27] MEDS ORDERED: PROAMATINE PO PRN (09:45)
--- NOTE | 2017-10-27 09:50 | Consultation ---
History of Present Illness - Reason for Consult Consult date: 10/27/17 end stage renal disease Requesting physician: JUAN PEÑA - History of Present Illness 62-year-old male with a history of hypertension, end-stage renal disease on hemodialysis, recently diagnosed cervical cancer presents with our charge, myalgia and generalized body pain and also lip swelling. Patient was transferred from the assisted because of swelling of the face and lips. She was given Percocet in the assisted day before. She hasa listed allergy to Tylenol No.3. Patient is was confused when I saw her she states "what happened after already someone from [place] a lot of us all about same age and there was also a little clip about his social life". Patient also has edema and I'm consulted to assist with providing dialysis and manage fluid and electrolyte abnormalities. She has some shortness of breath at rest Past History Past Medical History: cancer, COPD, ESRD, heart failure, hypertension, hyperlipidemia Past Surgical History: Other (bilateral nephrectomy , permacath placement) Social history: no significant social history, lives with family (she was living with her today she became sick about a month ago. She is now living at the assisted/ subacute rehabilitation). denies: smoking, alcohol abuse, prescription drug abuse Family history: hypertension, other (father had ESRD was on dialysis also) Medications and Allergies Allergies Allergy/AdvReac Type Severity Reaction Status Date / Time acetaminophen [From Percocet] Allergy Nausea Verified 10/04/17 13:51 cefazolin sodium [From Ancef] Allergy Rash Verified 05/25/13 08:00 lisinopril Allergy Angioedema Verified 02/25/17 20:06 oxycodone [From Percocet] Allergy Nausea Verified 10/04/17 13:51 Penicillins Allergy Rash Verified 05/25/13 08:00 phenytoin sodium Allergy Rash Verified 05/25/13 08:00 [From Dilantin] phenytoin sodium extended Allergy Rash Verified 05/25/13 08:00 [From Dilantin] Sulfa (Sulfonamide Allergy Rash Verified 05/25/13 08:00 Antibiotics) Home Medications Medication Instructions Recorded Confirmed Last Taken Type Aspirin [Aspirin BABY CHEW TAB] 81 mg PO QDAY #30 tab.chew 02/28/17 10/04/17 Rx Carvedilol [Coreg] 25 mg PO BID 08/30/17 10/04/1710/02/18 History Megestrol [Megace] 20 mg PO BID 08/30/17 10/04/17 10/02/17 History Sevelamer Carbonate [Renvela] 1,200 mg PO TID 08/30/17 10/04/17 10/02/17 History Vit B Comp No.3/Folic/C/Biotin 1 each PO DAILY 08/30/17 10/04/17 10/02/17 History [Rn Production-Romero Rx Tablet] Acetaminophen [Acetaminophen TAB] 650 mg PO Q4H PRN tablet 09/18/17 10/04/17 Unknown Rx Docusate Sodium [Colace CAP] 100 mg PO BID capsule 09/18/17 10/04/17 Unknown Rx Famotidine [Pepcid] 20 mg PO QDAY tablet 09/18/17 10/04/17 Unknown Rx ISOSORBIDE MONOnitrate [Imdur ER] 30 mg PO QDAY tablet 09/18/17 10/04/17 Rx NIFEdipine XL [Procardia Xl] 90 mg PO QDAY tablet 09/18/17 10/04/17 10/02/17 Rx Nitroglycerin [Nitrostat] 0.4 mg SL .Q5MIN PRN tablet 09/18/17 10/04/17 Unknown Rx diphenhydrAMINE [Benadryl CAP] 25 mg PO Q6H PRN capsule 09/18/17 10/04/17 Unknown Rx AtorvaSTATin [Lipitor] 80 mg PO QHS tablet 09/23/17 10/04/17 10/02/17 Rx Active Meds: Active Medications Acetaminophen (Tylenol) 650 mg PO Q4H PRN PRN Reason: Pain MILD(1-3)/Fever >100.5/DURAND Albumin Human (Alburx 25% (Albumin)) 25 gm IV IVONNE PRN PRN Reason: Hypotension Albuterol/Ipratropium (Duoneb *Not For Prn Use*) 1 ampul IH TIDRT LANEY Atorvastatin Calcium (Lipitor) 80 mg PO QHS LANEY Dextrose (D50w (25gm) Syringe) 50 ml IV PRN PRN PRN Reason: Hypoglycemia Diphenhydramine HCl (Benadryl) 25 mg PO TID LANEY Docusate Sodium (Colace) 100 mg PO BID PRN PRN Reason: Constipation Epoetin Mustapha (Epogen) 20,000 unit IV IVONNE PRN PRN Reason: hemodialysis Famotidine (Pepcid) 10 mg PO Q12HR [facility] Heparin Sodium (Porcine) (Heparin) 5,000 unit SUB-Q Q12HR [facility] Sodium Chloride (Nacl 0.9%) 100 mls @ 999 mls/hr IV IVONNE PRN PRN Reason: Hypotension Isosorbide Mononitrate (Imdur) 30 mg PO QDAY [facility] Methylprednisolone Sodium Succinate (Solu-Medrol) 100 mg IV Q6H [facility] Last Admin: 10/27/17 05:38 Dose: 100 mg Midodrine (Proamatine) 5 mg PO IVONNE PRN PRN Reason: Hypotension Ondansetron HCl (Zofran) 4 mg IV Q8H PRN PRN Reason: Nausea And Vomiting Sevelamer Carbonate (Renvela) 1,200 mg PO TIDWM [facility] Sodium Chloride (Sodium Chloride Flush Syringe 10 Ml) 10 ml IV BID [facility] Sodium Chloride (Sodium Chloride Flush Syringe 10 Ml) 10 ml IV PRN PRN PRN Reason: LINE FLUSH Last Admin: 10/27/17 05:40 Dose: 10 ml Review of Systems ROS unobtainable: due to mental status Exam - Vital Signs Vital signs: Vital Signs Temp Pulse Resp BP Pulse Ox 98.0 F 81 18 100/83 100 10/27/17 00:05 10/27/17 00:05 10/27/17 00:05 10/27/17 00:05 10/27/17 00:05 - Physical Exam Narrative exam: Middle-aged -[place] female lying in bed in no acute distress HEENT: Swelling life that left side of the face was swelling especially of the lower lip on the left side, pink oral mucous membrane Neck: Supple, visible venous distention was in the left side with swelling of the left side of the neck CVS: S1S2 RRR with no murmur, rub or gallop Chest: Bilateral rhonchi Abdomen: Protuberant, soft, nontender, no organomegaly, bowel sounds are present Extremities: 2+ edema lower extremities, 3+ edema left upper extremity Neuro: Awake, confused, moving extremities Results - Lab Results 10/28/17 06:29 10/28/17 06:29 Most recent lab results Calcium 8.6 mg/dL (8.4-10.2) 07/08/18 00:50 Magnesium 2.50 mg/dL (1.7-2.3) H 10/27/17 00:50 Assessment and Plan - Patient Problems (1) Swelling of left side of face Current Visit: Yes Status: Acute Plan to address problem: Patient has central venous stenosis. There is also concern about angioedema medication induced. The patient is on steroids. Consider vascular surgery consultation (2) Lip swelling Current Visit: Yes Status: Acute Plan to address problem: See above (3) Fluid overload Current Visit: No Status: Acute Plan to address problem: Patient has been getting off of dialysis early due to symptoms. She is volume overloaded with increased creatinine on account of this. Hemodialysis today with the shortness of breath at rest. We'll dialyze again tomorrow (4) Hypertensive chronic kidney disease with stage 5 chronic kidney disease or end stage renal disease Current Visit: No Status: Acute Plan to address problem: Restart nifedipine and metoprolol. Follow blood pressure on adjusted medications (5) End stage renal disease on dialysis Current Visit: No Status: Chronic Plan to address problem: Hemodialysis today and again in the morning. (6) Altered mental status Current Visit: Yes Status: Acute Plan to address problem: Consider CT head especially mental status is not improving.
[2017-10-27] MEDS: DUONEB *Not for PRN Use IH SCH ×3 (10:52→19:09)
[2017-10-27] MEDS: PEPCID PO SCH ×2 (11:14→21:52)
[2017-10-27] MEDS: BENADRYL PO SCH ×3 (11:15→20:49)
[2017-10-27] MEDS: SODIUM CHLORIDE FLUSH SYRINGE 10 ML IV SCH ×2 (11:16→21:59)
[2017-10-27] MEDS: HEPARIN SUB-Q SCH ×2 (11:16→21:54)
[2017-10-27] MEDS: IMDUR PO SCH (11:26)
[2017-10-27] MEDS: TYLENOL PO PRN ×2 (13:45→18:33)
[2017-10-27] MEDS ORDERED: NACL 0.9 (PRIMING MACHINE ONLY DIALYSIS) MC ONE (17:37)
[2017-10-28 07:15] LABS: Hematocrit 29.7 % (30.3-42.9); Hemoglobin 9.3 gm/dl (10.1-14.3); Mean Corpuscular HGB Conc 32 % (30-34); Mean Corpuscular Hemoglobin 27 pg (28-32); Mean Corpuscular Volume 85 fl (79-97); Platelet Count 371 K/mm3 (140-440); Red Blood Count 3.48 M/mm3 (3.65-5.03); Red Cell Distribution Width 19.8 % (13.2-15.2)
[2017-10-28 07:40] LABS: Calcium 9.1 mg/dL (8.4-10.2)
[2017-10-28] MEDS: DUONEB *Not for PRN Use IH SCH ×3 (08:13→20:13)
[2017-10-28 08:47] LABS: Anisocytosis 1+; Band Neutrophils # (Manual) 0.1 K/mm3; Basophils % (Manual) 0 % (0.0-1.8); Eosinophils % (Manual) 0 % (0.0-4.3); Platelet Estimate Consistent w Auto; Total Cells Counted 100
[2017-10-28] MEDS: PEPCID PO SCH ×2 (09:26→21:08)
[2017-10-28] MEDS: BENADRYL PO SCH ×3 (09:26→21:09)
--- NOTE | 2017-10-28 09:43 | Progress Note ---
Assessment and Plan Assessment and plan: Angioedema, face and lip swelling says patient was given Percocet pill and symptoms occurred within 2 hours afterwards Started on solu-medrol, Benadryl, Pepcid vasc surg consulted to check for SVC syndrome ESRD on hemodialysis. discussed with Dr. Levine, managing Squamous cell cancer likely cervical. To follow with Dr. Keith. She has appt 3 days from now on 10/31/17 Encephalopathy. Was confused yesterday. CT Head , no acute changes COPD. Hypertension. Cont Imdur Hyperlipidemia DVT prophylaxis. heparin subcut Full code status History Interval history: Swelling of face, lips improving. Lower lip still swollen confusion resolved Hospitalist Physical - Physical exam Narrative exam: Gen : Not in acute distress HEENT: Atraumatic, swollen lips, lower worse than upper,swollen face improved Neck: supple, No JVD Lungs: Clear to auscultation, bilaterally, no rhonchi, no wheeze Heart :S1 and S2 reg, no murmurs, rubs or gallop Abd:soft, tender, no rebound tenderness, non distended, normal bowel sounds Ext: No edema, no clubbing, no cyanosis, Neuro: Awake,alert,oriented x 3, no focal signs Psych:normal mood - Constitutional Vitals: Temp Pulse Resp BP Pulse Ox 97.7 F 79 20 152/84 99 10/28/17 05:54 10/28/17 05:54 10/28/17 05:54 10/28/17 05:54 10/28/17 05:54 General appearance: Present: no acute distress Results - Labs CBC & Chem 7: 10/28/17 06:29 10/28/17 06:29 Labs: Laboratory Last Values WBC 7.1 K/mm3 (4.5-11.0) 10/28/17 06:29 RBC 3.48 M/mm3 (3.65-5.03) L 10/28/17 06:29 Hgb 9.3 gm/dl (10.1-14.3) L 10/28/17 06:29 Hct 29.7 % (30.3-42.9) L 10/28/17 06:29 MCV 85 fl (79-97) 10/28/17 06:29 MCH 27 pg (28-32) L 10/28/17 06:29 MCHC 32 % (30-34) 10/28/17 06:29 RDW 19.8 % (13.2-15.2) H 10/28/17 06:29 Plt Count 371 K/mm3 (140-440) 10/28/17 06:29 Add Manual Diff Complete 10/28/17 06:29 Total Counted 100 10/28/17 06:29 Seg Neutrophils % Rickshaw Driver 10/28/17 06:29 Seg Neuts % (Manual) 88.0 % (40.0-70.0) H 10/28/17 06:29 Band Neutrophils % 2.0 % 10/28/17 06:29 Lymphocytes % (Manual) 7.0 % (13.4-35.0) L 10/28/17 06:29 Reactive Lymphs % (Man) 0 % 10/28/17 06:29 Monocytes % (Manual) 3.0 % (0.0-7.3) 10/28/17 06:29 Eosinophils % (Manual) 0 % (0.0-4.3) 10/28/17 06:29 Basophils % (Manual) 0 % (0.0-1.8) 10/28/17 06:29 Metamyelocytes % 0 % 10/28/17 06:29 Myelocytes % 0 % 10/28/17 06:29 Promyelocytes % 0 % 10/28/17 06:29 Blast Cells % 0 % 10/28/17 06:29 Nucleated RBC % Not Reportable 10/28/17 06:29 Seg Neutrophils # Man 6.2 K/mm3 (1.8-7.7) 10/28/17 06:29 Band Neutrophils # 0.1 K/mm3 10/28/17 06:29 Lymphocytes # (Manual) 0.5 K/mm3 (1.2-5.4) L 10/28/17 06:29 Abs React Lymphs (Man) 0.0 K/mm3 10/28/17 06:29 Monocytes # (Manual) 0.2 K/mm3 (0.0-0.8) 10/28/17 06:29 Eosinophils # (Manual) 0.0 K/mm3 (0.0-0.4) 10/28/17 06:29 Basophils # (Manual) 0.0 K/mm3 (0.0-0.1) 10/28/17 06:29 Metamyelocytes # 0.0 K/mm3 10/28/17 06:29 Myelocytes # 0.0 K/mm3 10/28/17 06:29 Promyelocytes # 0.0 K/mm3 10/28/17 06:29 Blast Cells # 0.0 K/mm3 10/28/17 06:29 WBC Morphology Not Reportable 10/28/17 06:29 Hypersegmented Neuts Not Reportable 10/28/17 06:29 Hyposegmented Neuts Not Reportable 10/28/17 06:29 Hypogranular Neuts Not Reportable 10/28/17 06:29 Smudge Cells Not Reportable 10/28/17 06:29 Toxic Granulation Not Reportable 10/28/17 06:29 Toxic Vacuolation Not Reportable 10/28/17 06:29 Dohle Bodies Not Reportable 10/28/17 06:29 Pelger-Huet Anomaly Not Reportable 10/28/17 06:29 Roberto Rods Not Reportable 10/28/17 06:29 Platelet Estimate Consistent w auto 10/28/17 06:29 Clumped Platelets Not Reportable 10/28/17 06:29 Plt Clumps, EDTA Not Reportable 10/28/17 06:29 Large Platelets Not Reportable 10/28/17 06:29 Giant Platelets Not Reportable 10/28/17 06:29 Platelet Satelliting Not Reportable 10/28/17 06:29 Plt Morphology Comment Not Reportable 10/28/17 06:29 RBC Morphology Not Reportable 10/28/17 06:29 Dimorphic RBCs Not Reportable 10/28/17 06:29 Polychromasia Rare 10/28/17 06:29 Hypochromasia Not Reportable 10/28/17 06:29 Poikilocytosis Not Reportable 10/28/17 06:29 Anisocytosis 1+ 10/28/17 06:29 Microcytosis Not Reportable 10/28/17 06:29 Macrocytosis Not Reportable 10/28/17 06:29 Spherocytes Not Reportable 10/28/17 06:29 Pappenheimer Bodies Not Reportable 10/28/17 06:29 Sickle Cells Not Reportable 10/28/17 06:29 Target Cells Not Reportable 10/28/17 06:29 Tear Drop Cells Not Reportable 10/28/17 06:29 Ovalocytes Not Reportable 10/28/17 06:29 Helmet Cells Not Reportable 10/28/17 06:29 [place] Bodies Not Reportable 10/28/17 06:29 [place] Rings Not Reportable 10/28/17 06:29 [place] Cells Not Reportable 10/28/17 06:29 Bite Cells Not Reportable 10/28/17 06:29 Crenated Cell Not Reportable 10/28/17 06:29 Elliptocytes Not Reportable 10/28/17 06:29 Acanthocytes (Spur) Not Reportable 10/28/17 06:29 Rouleaux Not Reportable 10/28/17 06:29 Hemoglobin C Crystals Not Reportable 10/28/17 06:29 Schistocytes Not Reportable 10/28/17 06:29 Malaria parasites Not Reportable 10/28/17 06:29 Quentin Bodies Not Reportable 10/28/17 06:29 Hem Pathologist Commnt No 10/28/17 06:29 PT 15.0 Sec. (12.2-14.9) H 10/27/17 00:49 INR 1.12 (0.87-1.13) 10/27/17 00:49 Sodium 140 mmol/L (137-145) 10/28/17 06:29 Potassium 4.5 mmol/L (3.6-5.0) 10/28/17 06:29 Chloride 97.3 mmol/L (98-107) L 10/28/17 06:29 Carbon Dioxide 24 mmol/L (22-30) 10/28/17 06:29 Anion Gap 23 mmol/L 10/28/17 06:29 BUN 29 mg/dL (7-17) H 10/28/17 06:29 Creatinine 4.6 mg/dL (0.7-1.2) H 10/28/17 06:29 Estimated GFR 12 ml/min 10/28/17 06:29 BUN/Creatinine Ratio 6 % 10/28/17 06:29 Glucose 136 mg/dL (65-100) H 10/28/17 06:29 POC Glucose 134 (70-105) H 10/28/17 07:14 Calcium 9.1 mg/dL (8.4-10.2) 10/28/17 06:29 Magnesium 2.50 mg/dL (1.7-2.3) H 10/27/17 00:50 NT-Pro-B Natriuret Pep 17896 pg/mL (0-900) H 10/27/17 00:50
[2017-10-28] MEDS: RENVELA PO SCH ×3 (09:52→21:07)
[2017-10-28] MEDS: SODIUM CHLORIDE FLUSH SYRINGE 10 ML IV SCH (09:52)
--- NOTE | 2017-10-28 09:53 | Progress Note ---
Assessment and Plan - Patient Problems (1) Swelling of left side of face Current Visit: Yes Status: Acute Plan to address problem: Patient has central venous stenosis. There is also concern about angioedema medication induced. So far there has not been any significant improvement on IV steroids. Consider vascular surgery consultation (2) Lip swelling Current Visit: Yes Status: Acute Plan to address problem: See above (3) Fluid overload Current Visit: No Status: Acute Plan to address problem: Hemodialysis again today for fluid overload (4) Hypertensive chronic kidney disease with stage 5 chronic kidney disease or end stage renal disease Current Visit: No Status: Acute Plan to address problem: Restart nifedipine and metoprolol. Follow blood pressure on adjusted medications (5) End stage renal disease on dialysis Current Visit: No Status: Chronic Plan to address problem: Hemodialysis again this morning. (6) Altered mental status Current Visit: Yes Status: Acute Plan to address problem: Consider CT head Subjective Date of service: 10/28/17 Principal diagnosis: end-stage renal disease, central venous stenosis, altered mental status, sw Interval history: Patient seen lying in bed. She is not as confused today. She knows she is in the hospital but does not know why she is here Objective - Exam Narrative Exam: Middle-aged -[place] female lying in bed in no acute distress HEENT: Swelling life that left side of the face was swelling especially of the lower lip on the left side, pink oral mucous membrane Neck: Supple, visible venous distention was in the left side with swelling of the left side of the neck CVS: S1S2 RRR with no murmur, rub or gallop Chest: Bilateral rhonchi Abdomen: Protuberant, soft, nontender, no organomegaly, bowel sounds are present Extremities: 2+ edema lower extremities, 3+ edema left upper extremity Neuro: Awake, confused, moving extremities - Vital Signs Vital signs: Vital Signs - 12hr 10/27/17 10/28/17 10/28/17 22:00 00:12 00:17 Temperature 98.0 F 98.0 F Pulse Rate 92 H 87 Respiratory 18 20 Rate Respiratory 18 Rate [ Generalized] Blood Pressure O2 Sat by Pulse 100 94 98 Oximetry 10/28/17 10/28/17 00:44 05:54 Temperature 98.6 F 97.7 F Pulse Rate 88 79 Respiratory 20 20 Rate Respiratory Rate [ Generalized] Blood Pressure 141/80 152/84 O2 Sat by Pulse 100 99 Oximetry - Lab 10/28/17 06:29 10/28/17 06:29 Most recent lab results Calcium 9.1 mg/dL (8.4-10.2) 10/28/17 06:29 Magnesium 2.50 mg/dL (1.7-2.3) H 10/27/17 00:50
--- NOTE | 2017-10-28 10:03 | Cat Scan Report ---
CT head without contrast: Altered mental status. Axial images demonstrates peripheral atrophy accentuated in the frontoparietal regions bilaterally. The ventricles are normal in size and contour. Normal white/sawant matter differentiation. No focal lesion. No extracerebral collection. No hemorrhage. The visualized bony structures are unremarkable. There does appear to be a partially imaged polypoid lesion in the right sphenoid sinus but the remaining visualized paranasal sinuses are unremarkable. Impressions: Cerebral atrophy somewhat advanced for stated age. No acute finding identified. Probable right sphenoid sinus polyp.
[2017-10-28] MEDS: IMDUR PO SCH (10:25)
[2017-10-28] MEDS: HEPARIN SUB-Q SCH ×2 (10:25→21:03)
--- NOTE | 2017-10-28 13:29 | Consultation ---
History of Present Illness - Reason for Consult Consult date: 10/28/17 Requesting physician: JUAN VERGARA - History of Present Illness This patient is a 62-year-old -[place] female that was admitted via the emergency room at [facility] on 10/27/2017 due to an acute onset of swelling to the face and lips with altered mental status. This patient has a history of metastatic squamous cell carcinoma (primary suspected to be cervical cancer). She also has end-stage renal disease on hemodialysis through a left internal jugular vein permacath which has been in place for approximately 3 years. She has an underlying SVC syndrome. She's been hospitalized multiple times over the last few months. Immediately prior to this admission, she was a [facility] at a [facility]. She was given a narcotic analgesic (thought to be [place] by her ). She subsequently had an acute onset of head neck and face swelling. This continued to progress over the next 12 hours. EMS was activated and the patient was transported to [facility] where she has since been admitted. The patient was treated for angioedema. Given her underlying SVC syndrome and concerns that this may have resulted in an exacerbation of the situation, a vascular surgery consult has been requested to further evaluate. The patient's was at the bedside and states over the last 2 days the swelling has dramatically improved by "approximately 98%". Past History Past Medical History: cancer, COPD, dialysis, ESRD, heart failure, hypertension , hyperlipidemia Past Surgical History: Other (bilateral nephrectomy , AV access in both upper extremities, multiple previous permacath placements) Social history: lives with family (she was living with her today she became sick about a month ago. She is now [facility]). denies: smoking, alcohol abuse, prescription drug abuse Family history: hypertension, other (father had ESRD was on dialysis also) Medications and Allergies Allergies Allergy/AdvReac Type Severity Reaction Status Date / Time acetaminophen [From Percocet] Allergy Nausea Verified 10/04/17 13:51 cefazolin sodium [From Ancef] Allergy Rash Verified 05/25/13 08:00 lisinopril Allergy Angioedema Verified 02/25/17 20:06 oxycodone [From Percocet] Allergy Nausea Verified 10/04/17 13:51 Penicillins Allergy Rash Verified 05/25/13 08:00 phenytoin sodium Allergy Rash Verified 05/25/13 08:00 [From Dilantin] phenytoin sodium extended Allergy Rash Verified 05/25/13 08:00 [From Dilantin] Sulfa (Sulfonamide Allergy Rash Verified 05/25/13 08:00 Antibiotics) Home Medications Medication Instructions Recorded Confirmed Last Taken Type Aspirin [Aspirin BABY CHEW TAB] 81 mg PO QDAY #30 tab.chew 02/28/17 10/04/17 Rx Carvedilol [Coreg] 25 mg PO BID 08/30/17 10/04/17 10/02/17 History Megestrol [Megace] 20 mg PO BID 08/30/17 10/04/17 10/02/17 History Sevelamer Carbonate [Renvela] 1,200 mg PO TID 08/30/17 10/04/17 10/02/17 History Vit B Comp No.3/Folic/C/Biotin 1 each PO DAILY 08/30/17 10/04/17 10/02/17 History [[employer]ero Rx Tablet] Acetaminophen [Acetaminophen TAB] 650 mg PO Q4H PRN tablet 09/18/17 10/04/17 Unknown Rx Docusate Sodium [Colace CAP] 100 mg PO BID capsule 09/18/17 10/04/17 Unknown Rx Famotidine [Pepcid] 20 mg PO QDAY tablet 09/18/17 10/04/17 Unknown Rx ISOSORBIDE MONOnitrate [Imdur ER] 30 mg PO QDAY tablet 09/18/17 10/04/17 Rx NIFEdipine XL [Procardia Xl] 90 mg PO QDAY tablet 09/18/17 10/04/17 10/02/17 Rx Nitroglycerin [Nitrostat] 0.4 mg SL .Q5MIN PRN tablet 09/18/17 10/04/17 Unknown Rx diphenhydrAMINE [Benadryl CAP] 25 mg PO Q6H PRN capsule 09/18/17 10/04/17 Unknown Rx AtorvaSTATin [Lipitor] 80 mg PO QHS tablet 09/23/17 10/04/17 10/02/17 Rx Active Meds: Active Medications Acetaminophen (Tylenol) 650 mg PO Q4H PRN PRN Reason: Pain MILD(1-3)/Fever >100.5/DURAND Last Admin: 10/27/17 18:33 Dose: 650 mg Albumin Human (Alburx 25% (Albumin)) 25 gm IV IVONNE PRN PRN Reason: Hypotension Albuterol/Ipratropium (Duoneb *Not For Prn Use*) 1 ampul IH TIDRT [facility] Last Admin: 10/28/17 08:13 Dose: 1 ampul Atorvastatin Calcium (Lipitor) 80 mg PO QHS [facility] Last Admin: 10/27/17 21:52 Dose: 80 mg Dextrose (D50w (25gm) Syringe) 50 ml IV PRN PRN PRN Reason: Hypoglycemia Diphenhydramine HCl (Benadryl) 25 mg PO TID [facility] Last Admin: 10/28/17 09:26 Dose: 25 mg Docusate Sodium (Colace) 100 mg PO BID PRN PRN Reason: Constipation Epoetin Mustapha (Epogen) 20,000 unit IV IVONNE PRN PRN Reason: hemodialysis Famotidine (Pepcid) 10 mg PO Q12HR [facility] Last Admin: 10/28/17 09:26 Dose: 10 mg Heparin Sodium (Porcine) (Heparin) 5,000 unit SUB-Q Q12HR [facility] Last Admin: 10/28/17 10:25 Dose: 5,000 unit Sodium Chloride (Nacl 0.9%) 100 mls @ 999 mls/hr IV IVONNE PRN PRN Reason: Hypotension Isosorbide Mononitrate (Imdur) 30 mg PO QDAY [facility] Last Admin: 10/28/17 10:25 Dose: 30 mg Methylprednisolone Sodium Succinate (Solu-Medrol) 100 mg IV Q6H [facility] Last Admin: 10/28/17 12:57 Dose: 100 mg Midodrine (Proamatine) 5 mg PO IVONNE PRN PRN Reason: Hypotension Ondansetron HCl (Zofran) 4 mg IV Q8H PRN PRN Reason: Nausea And Vomiting Sevelamer Carbonate (Renvela) 1,200 mg PO TIDWM [facility] Last Admin: 10/28/17 12:57 Dose: 1,200 mg Sodium Chloride (Sodium Chloride Flush Syringe 10 Ml) 10 ml IV BID [facility] Last Admin: 10/28/17 09:52 Dose: 10 ml Sodium Chloride (Sodium Chloride Flush Syringe 10 Ml) 10 ml IV PRN PRN PRN Reason: LINE FLUSH Last Admin: 10/27/17 05:40 Dose: 10 ml Review of Systems All systems: negative Exam - Constitutional Vitals: Temp Pulse Resp BP Pulse Ox 98.0 F 80 19 160/88 98 10/28/17 11:41 10/28/17 11:41 10/28/17 11:41 10/28/17 11:41 10/28/17 11:41 General appearance: Present: no acute distress - EENT Eyes: Present: EOM intact ENT: hearing intact, other (patient with mild facial swelling with exception of her lower lip which is profoundly edematous. After speaking with her , apparently her symptoms have improved dramatically. He states her eyes were nearly swollen shut.) - Neck Neck: Present: supple (left internal jugular vein permacath in place without erythema or drainage appreciated) - Respiratory Respiratory effort: normal (unlabored at rest) - Extremities Extremities: no ischemia, normal temperature Extremity abnormal: edema (moderate pitting edema to her left arm), other ( multiple thrombosed dialysis access) - Psychiatric Psychiatric: appropriate mood/affect, intact judgment & insight, cooperative - Neurologic Neurologic: no focal deficits Results - Labs CBC & Chem 7: 10/28/17 06:29 10/28/17 06:29 Labs: Abnormal lab results 10/27/17 10/27/17 10/28/17 Range/Units 18:46 21:39 06:29 RBC 3.48 L (3.65-5.03) M/mm3 Hgb 9.3 L (10.1-14.3) gm/dl Hct 29.7 L (30.3-42.9) % MCH 27 L (28-32) pg RDW 19.8 H (13.2-15.2) % Seg Neuts % (Manual) 88.0 H (40.0-70.0) % Lymphocytes % (Manual) 7.0 L (13.4-35.0) % Lymphocytes # (Manual) 0.5 L (1.2-5.4) K/mm3 Chloride (98-107) mmol/L BUN (7-17) mg/dL Creatinine (0.7-1.2) mg/dL Glucose (65-100) mg/dL POC Glucose 138 H 133 H (70-105) 10/28/17 10/28/17 10/28/17 Range/Units 06:29 07:14 12:00 RBC (3.65-5.03) M/mm3 Hgb (10.1-14.3) gm/dl Hct (30.3-42.9) % MCH (28-32) pg RDW (13.2-15.2) % Seg Neuts % (Manual) (40.0-70.0) % Lymphocytes % (Manual) (13.4-35.0) % Lymphocytes # (Manual) (1.2-5.4) K/mm3 Chloride 97.3 L (98-107) mmol/L BUN 29 H (7-17) mg/dL Creatinine 4.6 H (0.7-1.2) mg/dL Glucose 136 H (65-100) mg/dL POC Glucose 134 H 150 H (70-105) Assessment and Plan This patient presented with an acute onset of profound facial swelling. This was suspected to be angioedema, she was treated. According to her the symptoms have improved dramatically. She is suspected to have an underlying SVC syndrome (due to long-term hemodialysis catheter usage). This certainly could exacerbated the situation, and delayed resolution of the symptoms. However, her symptoms are improving with conservative measures. Any vascular intervention to treat the underlying SVC syndrome would generally use moderate sedation. This would include a narcotic (which is suspected to be a potential source of the recent angioedema). In light of her improved symptoms with conservative measures, and in hopes to avoid further exacerbation , we do not recommend intervention at this point. I discussed long-term hemodialysis access possibilities including a left-sided hero graft with the couple. However, any elective surgical intervention would be postponed until the patient has been further evaluated by her oncologist for treatment of her underlying metastatic carcinoma. Her states she's been rescheduled to follow up with oncology next week. I gave them another card , and recommended they follow with our office after the oncologist appointment. I recommend no further unavoidable venipunctures to the left upper extremity as this is a potential site of future long-term he would also access. I recommend elevation of the head and left arm , and discussed this with the patient and her to facilitate improvement of swelling. They stated understanding, and will follow-up with our office as an outpatient. Thank you for this consultation. - Patient Problems (1) Angioedema Current Visit: Yes Status: Acute (2) Superior vena cava syndrome Current Visit: No Status: Acute (3) Metastatic squamous cell carcinoma Current Visit: Yes Status: Acute (4) End stage renal disease on dialysis Current Visit: No Status: Chronic (5) HTN (hypertension) Current Visit: No Status: Chronic Qualifiers: Hypertension type: essential hypertension Qualified Code(s): I10 - Essential (primary) hypertension (6) Hx of past noncompliance Current Visit: Yes Status: Acute
[2017-10-28] MEDS ORDERED: NACL 0.9% 100 ML IV PRN (13:55)
[2017-10-28] MEDS ORDERED: NACL 0.9 (PRIMING MACHINE ONLY DIALYSIS) MC ONE (18:29)
[2017-10-28] MEDS: TYLENOL PO PRN (20:10)
[2017-10-29] MEDS: RENVELA PO SCH ×3 (07:49→17:12)
[2017-10-29] MEDS: SODIUM CHLORIDE FLUSH SYRINGE 10 ML IV SCH ×3 (09:01→22:01)
[2017-10-29] MEDS: BENADRYL PO SCH ×3 (09:01→21:57)
[2017-10-29] MEDS: DUONEB *Not for PRN Use IH SCH ×3 (09:23→21:57)
[2017-10-29] MEDS: IMDUR PO SCH (09:57)
[2017-10-29] MEDS: PEPCID PO SCH ×2 (09:57→21:57)
[2017-10-29] MEDS: HEPARIN SUB-Q SCH ×2 (09:57→21:57)
[2017-10-29] MEDS: TYLENOL PO PRN (12:37)
--- NOTE | 2017-10-29 16:33 | Progress Note ---
Assessment and Plan /Angioedema, with face and lip swelling says patient was given Percocet pill and symptoms occurred within 2 hours afterwards Started on solu-medrol, Benadryl, Pepcid symptom now resolved /Possible SVC syndrome Presented with facial swelling and left arm swelling vasc surg consulted to check for SVC syndrome, recommended outpt follow up /ESRD on hemodialysis. Consulted Dr. Levine, HD per renal /Squamous cell cancer likely cervical. To follow with Dr. Keith. She has appt on 10/31/17 /Encephalopathy. Was confused. CT Head , no acute changes pat at her baseline now /COPD, stable - will need home o2 /Hypertension, Cont Imdur /Hyperlipidemia, cont statin DVT prophylaxis. heparin subcut Full code status Disposition: Home with HH when arrangement ready Hospitalist Physical Gen : Not in acute distress HEENT: Atraumatic, no facial swelling Neck: supple, No JVD Lungs: Clear to auscultation, bilaterally, no rhonchi, no wheeze Heart :S1 and S2 reg, no murmurs, rubs or gallop Abd:soft, tender, no rebound tenderness, non distended, normal bowel sounds Ext: No edema, no clubbing, no cyanosis, Neuro: Awake,alert,oriented x 3, no focal signs Psych:normal mood Subjective Date of service: 10/29/17 Principal diagnosis: end-stage renal disease, central venous stenosis, altered mental status, sw Interval history: pt seen and examined Swelling of face, lips resolved. confusion resolved Objective - Constitutional Vitals: Vital Signs - 12hr 10/29/17 10/29/17 10/29/17 06:15 09:25 09:27 Temperature 98.4 F Pulse Rate 85 Pulse Rate [ 92 H Anterior Bilateral Throughout] Pulse Rate [ 100 H Throughout] Respiratory 20 Rate Respiratory 18 Rate [Anterior Bilateral Throughout] Respiratory 18 Rate [ Throughout] Blood Pressure 166/101 O2 Sat by Pulse 85 98 Oximetry 10/29/17 10/29/17 12:12 13:50 Temperature 99.0 F Pulse Rate 85 Pulse Rate [ 100 H Anterior Bilateral Throughout] Pulse Rate [ 92 H Throughout] Respiratory 16 Rate Respiratory 18 Rate [Anterior Bilateral Throughout] Respiratory 16 Rate [ Throughout] Blood Pressure 154/84 O2 Sat by Pulse 96 Oximetry - Labs CBC & Chem 7: 10/28/17 06:29 10/28/17 06:29 Labs: Abnormal lab results 10/29/17 10/29/17 10/29/17 Range/Units 01:04 06:51 12:16 POC Glucose 151 H 141 H 215 H (70-105)
--- NOTE | 2017-10-29 19:12 | Progress Note ---
Assessment and Plan - Patient Problems (1) Swelling of left side of face Current Visit: Yes Status: Acute Plan to address problem: Patient has central venous stenosis with superimposed angioedema medication induced. Significantly improved. Discussed surgery input appreciated (2) Lip swelling Current Visit: Yes Status: Acute Plan to address problem: See above (3) Fluid overload Current Visit: No Status: Acute Plan to address problem: Improved. Hemodialysis again in am (4) Hypertensive chronic kidney disease with stage 5 chronic kidney disease or end stage renal disease Current Visit: No Status: Acute Plan to address problem: Follow blood pressure on current medications (5) End stage renal disease on dialysis Current Visit: No Status: Chronic Plan to address problem: Hemodialysis again this morning. (6) Altered mental status Current Visit: Yes Status: Acute Plan to address problem: Resolved Subjective Date of service: 10/29/17 Principal diagnosis: end-stage renal disease, central venous stenosis, altered mental status, sw Interval history: Patient seen lying in bed. She feels much better. at the bedside. Swelling is resolving Objective - Exam Narrative Exam: Middle-aged -Citizen Of [place] female lying in bed in no acute distress HEENT: Swelling life that left side of the face with swelling especially of the lower lip on the left side almost completely resolved, pink oral mucous membrane Neck: Supple, visible venous distention was in the left side with swelling of the left side of the neck CVS: S1S2 RRR with no murmur, rub or gallop Chest: Bilateral rhonchi Abdomen: Protuberant, soft, nontender, no organomegaly, bowel sounds are present Extremities: mild edema lower extremities, 1-2+ edema left upper extremity Neuro: Awake, confused, moving extremities - Vital Signs Vital signs: Vital Signs - 12hr 10/29/17 10/29/17 10/29/17 09:25 09:27 12:12 Temperature 99.0 F Pulse Rate 85 Pulse Rate [ 92 H Anterior Bilateral Throughout] Pulse Rate [ 100 H Throughout] Respiratory 16 Rate Respiratory 18 Rate [Anterior Bilateral Throughout] Respiratory 18 Rate [ Throughout] Blood Pressure 154/84 O2 Sat by Pulse 98 96 Oximetry 10/29/17 10/29/17 13:50 17:01 Temperature 99.0 F Pulse Rate 78 Pulse Rate [ 100 H Anterior Bilateral Throughout] Pulse Rate [ 92 H Throughout] Respiratory 20 Rate Respiratory 18 Rate [Anterior Bilateral Throughout] Respiratory 16 Rate [ Throughout] Blood Pressure 161/90 O2 Sat by Pulse 97 Oximetry - Lab 10/28/17 06:29 10/28/17 06:29 Most recent lab results Calcium 9.1 mg/dL (8.4-10.2) 10/28/17 06:29 Magnesium 2.50 mg/dL (1.7-2.3) H 10/27/17 00:50
[2017-10-30] MEDS ORDERED: APRESOLINE IV PRN (06:05)
[2017-10-30] MEDS: TYLENOL PO PRN (06:19)
[2017-10-30] MEDS: DUONEB *Not for PRN Use IH SCH ×2 (08:23→15:49)
[2017-10-30 09:02] LABS: Calcium 8.9 mg/dL (8.4-10.2)
[2017-10-30] MEDS: PEPCID PO SCH (12:11)
[2017-10-30] MEDS: RENVELA PO SCH ×2 (12:11→17:45)
[2017-10-30] MEDS: IMDUR PO SCH (12:12)
[2017-10-30] MEDS: HEPARIN SUB-Q SCH (12:12)
[2017-10-30] MEDS: BENADRYL PO SCH ×2 (12:14→15:00)
[2017-10-30] MEDS: SODIUM CHLORIDE FLUSH SYRINGE 10 ML IV SCH (12:15)
--- NOTE | 2017-10-30 13:14 | Discharge Summary ---
Providers - Providers Date of Admission: 10/28/17 10:55 Date of discharge: 10/30/17 Attending physician: MISHEL HOUSER 10/27/17 00:16 Consult to Physician [CONS] Urgent Comment: I just spoke with Dr. Levine & told him of consult Consulting Provider: ALEXANDER LEVINE Physician Instructions: Reason For Exam: esrd angioedema 10/27/17 08:05 Speech Therapy Evaluation and Treat [CONS] Routine Reason For Exam: difficult swallowing, angioedema 10/28/17 09:37 Consult to Physician [CONS] Routine Comment: Consulting Provider: CHANTEL PARDO Physician Instructions: Reason For Exam: face swelling, central vein stenosis 10/28/17 12:13 Occupational Therapy Evaluate and Treat [CONS] Routine Comment: Reason For Exam: generalized weakness Physical Therapy Evaluation and Treat [CONS] Routine Comment: Reason For Exam: generalized weakness Primary care physician: [employer] Hospitalization Condition: Fair Pertinent studies: CT head CXR Hospital course: 62-year-old -[place] female with history of end-stage renal disease on hemodialysis, nonischemic cardiomyopathy, with EF of 20-25%, hypertension, COPD and stage IV cervical cancer was transferred from [facility] facility complaints of swelling of the face and lips. Discharge diagnosis and management: /Angioedema, with face and lip swelling says patient was given Percocet pill and symptoms occurred within 2 hours afterwards Started on solu-medrol, Benadryl, Pepcid symptom now resolved /Possible SVC syndrome Presented with facial swelling and left arm swelling vasc surg consulted to check for SVC syndrome, recommended outpt follow up /ESRD on hemodialysis. Consulted Dr. Levine, HD per renal /Squamous cell cancer likely cervical. To follow with Dr. Keith. She has appt on 10/31/17 /Encephalopathy. Was confused. CT Head , no acute changes pat at her baseline now /COPD, stable - will need home o2 /Hypertension, Cont Imdur /Hyperlipidemia, cont statin DVT prophylaxis. heparin subcut Full code status Disposition: Home with HH when arrangement ready Hospitalist Physical Gen : Not in acute distress HEENT: Atraumatic, no facial swelling Neck: supple, No JVD Lungs: Clear to auscultation, bilaterally, no rhonchi, no wheeze Heart :S1 and S2 reg, no murmurs, rubs or gallop Abd:soft, tender, no rebound tenderness, non distended, normal bowel sounds Ext: No edema, no clubbing, no cyanosis, Neuro: Awake,alert,oriented x 3, no focal signs Psych:normal mood Disposition: [id number] HOME UNDER HOME HL Time spent for discharge: 34 minutes Core Measure Documentation - Palliative Care Palliative Care/ Comfort Measures: Not Applicable - Core Measures Any of the following diagnoses?: history only Exam - Constitutional Vitals: Temp Pulse Resp BP Pulse Ox 98.3 F 83 18 180/106 100 10/30/17 11:50 10/30/17 11:50 10/30/17 11:50 10/30/17 11:50 10/30/17 11:50 Plan Activity: up only with assistance Weight Bearing Status: Non-Weight Bearing Diet: renal Additional Instructions: f/u with oncologist in one week. f/u with vascular surgeonin 2 weeks Follow up with: PRIMARY CARE, [Primary Care Provider] - 3-5 Days Prescriptions: AtorvaSTATin [Lipitor] 80 mg PO QHS #30 tablet Aspirin [Aspirin BABY CHEW TAB] 81 mg PO QDAY #30 tab.chew diphenhydrAMINE [Benadryl CAP] 25 mg PO Q6H PRN #14 capsule PRN Reason: Itching Docusate Sodium [Colace CAP] 100 mg PO BID #60 capsule Famotidine [Pepcid] 20 mg PO QDAY #30 tablet ISOSORBIDE MONOnitrate [Imdur ER] 30 mg PO QDAY #30 tablet Megestrol [Megace] 20 mg PO BID #60 tablet Sevelamer Carbonate [Renvela] 1,200 mg PO TID #60 tablet
[2017-10-30 18:01] VITALS: BP 146/90
== END 2017-10-30 19:32 | disposition home health service (06) | DRG 915 ==
LOC: ED 23:38 → 3A 10-27 02:31 → OBSVTOIN 10-28 10:55
PROVIDERS: ADMIT Internal Medicine; ATTEND Internal Medicine
PROC: 5A1D70Z Performance of Urinary Filtration, Intermittent, Less than 6 Hours Per Day (ICD-10-PCS; principal; 2017-10-27)
PROC: 5A1D70Z Performance of Urinary Filtration, Intermittent, Less than 6 Hours Per Day (ICD-10-PCS; 2017-10-28)
PROC: 5A1D70Z Performance of Urinary Filtration, Intermittent, Less than 6 Hours Per Day (ICD-10-PCS; 2017-10-30)
DX: T78.3XXA Angioneurotic edema, initial encounter (principal); N18.6 End stage renal disease; I50.23 Acute on chronic systolic (congestive) heart failure; G93.40 Encephalopathy, unspecified; I87.1 Compression of vein; I42.9 Cardiomyopathy, unspecified; I13.2 Hypertensive heart and chronic kidney disease with heart failure and with stage 5 chronic kidney disease, or end stage renal disease; J90 Pleural effusion, not elsewhere classified; C79.89 Secondary malignant neoplasm of other specified sites; D63.1 Anemia in chronic kidney disease; Z99.2 Dependence on renal dialysis; E87.70 Fluid overload, unspecified; C53.9 Malignant neoplasm of cervix uteri, unspecified; Z88.0 Allergy status to penicillin; Z88.8 Allergy status to other drugs, medicaments and biological substances; J44.9 Chronic obstructive pulmonary disease, unspecified; Z79.82 Long term (current) use of aspirin; Z82.49 Family history of ischemic heart disease and other diseases of the circulatory system; Z84.1 Family history of disorders of kidney and ureter; E78.5 Hyperlipidemia, unspecified
CPT/HCPCS: 36415; 70450; 71045; 80048; 82962; 83735; 83880; 85007; 85025; 85027; 85610; 94640; 94760; 96374; 96375; A9270-GY; G0378; G8978-GP; G8979-GP; G8987-GO; G8988-GO; G8996-GN; G8997-GN; G8998-GN; J0360; J0885; J1200; J1644; J2930; J7030

== ENCOUNTER 2017-11-29 17:30 | Inpatient (IN) | payer MEDICARE ==
--- NOTE | 2017-11-29 18:07 | Emergency Department Report ---
ED General Adult HPI - General Chief complaint: Medical Clearance Stated complaint: LOW HEMOGLOBIN Time Seen by Provider: 11/29/17 18:02 Source: patient, EMS Mode of arrival: Stretcher Limitations: No Limitations - History of Present Illness Initial comments: Patient was sent to the emergency room by her cancellation clerk Dr. Astorga. This is because her hemoglobin was low. Patient denies any bleeding currently. She said she's been feeling tired lately. However she denies chest pain, shortness of breath or syncope. -: Gradual Improves with: none Worsens with: none Associated Symptoms: denies other symptoms Treatments Prior to Arrival: none - Related Data Home Medications Medication Instructions Recorded Confirmed Last Taken Vit B Comp No.3/Folic/C/Biotin 1 each PO DAILY 08/30/17 10/28/17 10/24/17 08:00 [Retail Client Manager-[facility] Rx Tablet] Previous Rx's Medication Instructions Recorded Last Taken Type Acetaminophen [Acetaminophen TAB] 650 mg PO Q4H PRN tablet 09/18/17 Unknown Rx Nitroglycerin [Nitrostat] 0.4 mg SL .Q5MIN PRN tablet 09/18/17 Unknown Rx Aspirin [Aspirin BABY CHEW TAB] 81 mg PO QDAY #30 tab.chew 10/30/17 Unknown Rx AtorvaSTATin [Lipitor] 80 mg PO QHS #30 tablet 10/30/17 Unknown Rx Docusate Sodium [Colace CAP] 100 mg PO BID #60 capsule 10/30/17 Unknown Rx Famotidine [Pepcid] 20 mg PO QDAY #30 tablet 10/30/17 Unknown Rx ISOSORBIDE MONOnitrate [Imdur ER] 30 mg PO QDAY #30 tablet 10/30/17 Unknown Rx Megestrol [Megace] 20 mg PO BID #60 tablet 10/30/17 Unknown Rx Sevelamer Carbonate [Renvela] 1,200 mg PO TID #60 tablet 10/30/17 Unknown Rx diphenhydrAMINE [Benadryl CAP] 25 mg PO Q6H PRN #14 capsule 10/30/17 Unknown Rx Allergies Allergy/AdvReac Type Severity Reaction Status Date / Time acetaminophen [From Percocet] Allergy Nausea Verified 10/04/17 13:51 cefazolin sodium [From Ancef] Allergy Rash Verified 05/25/13 08:00 lisinopril Allergy Angioedema Verified 02/25/17 20:06 oxycodone [From Percocet] Allergy Nausea Verified 10/04/17 13:51 Penicillins Allergy Rash Verified 05/25/13 08:00 phenytoin sodium Allergy Rash Verified 05/25/13 08:00 [From Dilantin] phenytoin sodium extended Allergy Rash Verified 05/25/13 08:00 [From Dilantin] Sulfa (Sulfonamide Allergy Rash Verified 05/25/13 08:00 Antibiotics) ED Review of Systems ROS: Stated complaint: LOW HEMOGLOBIN Other details as noted in HPI Comment: All other systems reviewed and negative Constitutional: denies: chills, fever Eyes: denies: eye pain ENT: denies: ear pain Respiratory: SOB with exertion Cardiovascular: dyspnea on exertion. denies: chest pain, palpitations Endocrine: no symptoms reported Gastrointestinal: denies: abdominal pain, nausea, vomiting, diarrhea Genitourinary: denies: urgency, dysuria Musculoskeletal: denies: back pain Skin: denies: rash, lesions Neurological: denies: headache, weakness, numbness Psychiatric: denies: anxiety, depression Hematological/Lymphatic: denies: easy bleeding, easy bruising ED Past Medical Hx - Past Medical History Hx Hypertension: Yes Hx Congestive Heart Failure: Yes Hx Diabetes: No Hx Renal Disease: Yes (dialysis M-W-F) Hx Asthma: No Hx COPD: Yes - Surgical History Additional Surgical History: bilateral nephrectomy. permacath left chest - Social History Smoking Status: Never Smoker - Medications Home Medications: Home Medications Medication Instructions Recorded Confirmed Last Taken Type Vit B Comp No.3/Folic/C/Biotin 1 each PO DAILY 08/30/17 10/28/17 10/24/17 08:00 History [Retail Client Manager-[facility] Rx Tablet] Acetaminophen [Acetaminophen TAB] 650 mg PO Q4H PRN tablet 09/18/17 10/28/17 Unknown Rx Nitroglycerin [Nitrostat] 0.4 mg SL .Q5MIN PRN tablet 09/18/17 10/28/17 Unknown Rx Aspirin [Aspirin BABY CHEW TAB] 81 mg PO QDAY #30 tab.chew 10/30/17 Unknown Rx AtorvaSTATin [Lipitor] 80 mg PO QHS #30 tablet 10/30/17 Unknown Rx Docusate Sodium [Colace CAP] 100 mg PO BID #60 capsule 10/30/17 Unknown Rx Famotidine [Pepcid] 20 mg PO QDAY #30 tablet 10/30/17 Unknown Rx ISOSORBIDE MONOnitrate [Imdur ER] 30 mg PO QDAY #30 tablet 10/30/17 Unknown Rx Megestrol [Megace] 20 mg PO BID #60 tablet 10/30/17 Unknown Rx Sevelamer Carbonate [Renvela] 1,200 mg PO TID #60 tablet 10/30/17 Unknown Rx diphenhydrAMINE [Benadryl CAP] 25 mg PO Q6H PRN #14 capsule 10/30/17 Unknown Rx ED Physical Exam - General Limitations: No Limitations General appearance: alert, in no apparent distress - Head Head exam: Present: atraumatic, normocephalic, normal inspection - Eye Eye exam: Present: normal appearance, PERRL, EOMI Pupils: Present: normal accommodation - ENT ENT exam: Present: normal exam, normal orophraynx, mucous membranes moist - Neck Neck exam: Present: normal inspection, full ROM. Absent: tenderness - Respiratory Respiratory exam: Present: normal lung sounds bilaterally. Absent: respiratory distress, wheezes, rales, rhonchi - Cardiovascular Cardiovascular Exam: Present: regular rate, normal rhythm, normal heart sounds - GI/Abdominal GI/Abdominal exam: Present: soft, normal bowel sounds. Absent: distended, tenderness, guarding, rebound - Rectal Rectal exam: Present: deferred - Extremities Exam Extremities exam: Present: normal inspection, full ROM, normal capillary refill , pedal edema. Absent: tenderness - Back Exam Back exam: Present: normal inspection, full ROM. Absent: tenderness - Neurological Exam Neurological exam: Present: alert, oriented X3, CN II-XII intact - Psychiatric Psychiatric exam: Present: normal affect, normal mood - Skin Skin exam: Present: warm, dry, intact, normal color. Absent: rash ED Course Vital Signs 11/29/17 11/29/17 11/29/17 18:47 19:00 19:09 Temperature 98.0 F Pulse Rate 92 H Respiratory 16 12 Rate Blood Pressure Blood Pressure 142/83 [Right] O2 Sat by Pulse 100 100 Oximetry 11/29/17 11/29/17 11/29/17 19:16 19:30 19:46 Temperature Pulse Rate 85 90 89 Respiratory 15 11 L 13 Rate Blood Pressure 142/83 142/83 142/83 Blood Pressure [Right] O2 Sat by Pulse 100 100 100 Oximetry ED Medical Decision Making - Lab Data Result diagrams: 11/29/17 19:36 11/29/17 19:36 - Medical Decision Making Symptomatic Anemia. Critical care attestation.: If time is entered above; I have spent that time in minutes in the direct care of this critically ill patient, excluding procedure time. ED Disposition Clinical Impression: Symptomatic anemia Anemia Qualifiers: Anemia type: due to chronic kidney disease Chronic kidney disease stage: unspecified stage Qualified Code(s): N18.9 - Chronic kidney disease, unspecified ; D63.1 - Anemia in chronic kidney disease Disposition: OP ADMIT IP TO THIS HOSP Is pt being admited?: Yes Does the pt Need Aspirin: No Condition: Stable Referrals: PRIMARY CARE, [Primary Care Provider] - 3-5 Days Time of Disposition: 21:27
[2017-11-29 20:03] LABS: Basophils % (Auto) 0.3 % (0.0-1.8); Eosinophils # (Auto) 0.1 K/mm3 (0.0-0.4); Eosinophils % (Auto) 0.4 % (0.0-4.3); Lymphocytes # (Auto) 0.8 K/mm3 (1.2-5.4); Lymphocytes % (Auto) 6.7 % (13.4-35.0); Mean Corpuscular HGB Conc 30 % (30-34); Mean Corpuscular Volume 87 fl (79-97); Monocytes # (Auto) 0.8 K/mm3 (0.0-0.8); Monocytes % (Auto) 7.1 % (0.0-7.3); Platelet Count 325 K/mm3 (140-440); Red Blood Count 1.97 M/mm3 (3.65-5.03)
[2017-11-29 20:06] LABS: Hemoglobin 5.1 gm/dl (10.1-14.3); Mean Corpuscular Hemoglobin 26 pg (28-32); Red Cell Distribution Width 22.1 % (13.2-15.2)
[2017-11-29] MEDS ORDERED: NACL 0.9% 500 ML 500 ML IV ONE (20:10)
[2017-11-29 20:49] LABS: Calcium 8.4 mg/dL (8.4-10.2)
[2017-11-29] MEDS ORDERED: SODIUM CHLORIDE FLUSH SYRINGE 10 ML IV PRN (22:41)
[2017-11-29] MEDS ORDERED: BENADRYL IV PRN (22:41)
--- NOTE | 2017-11-29 22:45 | History and Physical Report ---
History of Present Illness Date of examination: 11/29/17 History of present illness: 62-year-old woman with a history of end-stage renal disease on dialysis, hypertension, CHF, stage IV cervical cancer was sent to the emergency room for evaluation of abnormal hemoglobin. Patient states she's been feeling weak. She has vaginal bleed on and off, started again today, typically uses 3 pads a day Review of systems Constitutional: no weight loss, chills, fever Ears, eyes, nose, mouth and throat: no nasal congestion, no nasal discharge, no sinus pressure, no vision change, no red eye. Neck: No neck pain or rigidity. Cardiovascular: no chest pain, palpitations Respiratory: no cough, shortness of breath Gastrointestinal: no abdominal pain hematochezia Genitourinary : no frequency , no hematuria Musculoskeletal: no joint swelling or muscle ache Integumentary: no rash, no pruritis Neurological: no parathesias, no numbness, no focal weakness Endocrine: no cold or heat intolerance, no polyuria or polydipsia Hematologic/Lymphatic: no easy bruising, no easy bleeding, no gland swelling Allergic/Immunologic: no urticaria, no angioedema. PAST MEDICAL HISTORY:end-stage renal disease on dialysis, hypertension, CHF, stage IV cervical cancer PAST SURGICAL HISTORY: Nephrectomy, AV fistula SOCIAL HISTORY: No alcohol, no drugs, tobacco FAMILY HISTORY: Hypertension Medications and Allergies Allergies Allergy/AdvReac Type Severity Reaction Status Date / Time acetaminophen [From Percocet] Allergy Nausea Verified 10/04/17 13:51 cefazolin sodium [From Ancef] Allergy Rash Verified 05/25/13 08:00 lisinopril Allergy Angioedema Verified 02/25/17 20:06 oxycodone [From Percocet] Allergy Nausea Verified 10/04/17 13:51 Penicillins Allergy Rash Verified 05/25/13 08:00 phenytoin sodium Allergy Rash Verified 05/25/13 08:00 [From Dilantin] phenytoin sodium extended Allergy Rash Verified 05/25/13 08:00 [From Dilantin] Sulfa (Sulfonamide Allergy Rash Verified 05/25/13 08:00 Antibiotics) Home Medications Medication Instructions Recorded Confirmed Last Taken Type Vit B Comp No.3/Folic/C/Biotin 1 each PO DAILY 08/30/17 10/28/17 10/24/17 08:00 History [Button Broacher-[facility] Rx Tablet] Acetaminophen [Acetaminophen TAB] 650 mg PO Q4H PRN tablet 09/18/17 10/28/17 Unknown Rx Nitroglycerin [Nitrostat] 0.4 mg SL .Q5MIN PRN tablet 09/18/17 10/28/17 Unknown Rx Aspirin [Aspirin BABY CHEW TAB] 81 mg PO QDAY #30 tab.chew 10/30/17 Unknown Rx AtorvaSTATin [Lipitor] 80 mg PO QHS #30 tablet 10/30/17 Unknown Rx Docusate Sodium [Colace CAP] 100 mg PO BID #60 capsule 10/30/17 Unknown Rx Famotidine [Pepcid] 20 mg PO QDAY #30 tablet 10/30/17 Unknown Rx ISOSORBIDE MONOnitrate [Imdur ER] 30 mg PO QDAY #30 tablet 10/30/17 Unknown Rx Megestrol [Megace] 20 mg PO BID #60 tablet 10/30/17 Unknown Rx Sevelamer Carbonate [Renvela] 1,200 mg PO TID #60 tablet 10/30/17 Unknown Rx diphenhydrAMINE [Benadryl CAP] 25 mg PO Q6H PRN #14 capsule 10/30/17 Unknown Rx Exam - Physical Exam Narrative exam: Gen. appearance: Patient lying in bed, no apparent distress HEENT: Normocephalic, atraumatic, pupils equally round and reactive to light, extraocular movement intact, and no sclericterus,. No JVD or thyromegaly or nodule,neck supple, no carotid bruit ,mucous membranes moist, no exudate or erythema Heart: S1, S2, regular rate and rhythm Lungs: Clear bilaterally, breathing comfortable Abdomen: Positive bowel sounds, non-tender, nondistended, no organomegaly Extremity:no edema cyanosis, clubbing Skin: no rash, dry, warm Neuro: Oriented 3, cranial nerves II-12 intact, speech is fluent, motor and sensory intact - Constitutional Vitals: Temp Pulse Resp BP Pulse Ox 98.0 F 89 13 142/83 100 11/29/17 19:09 11/29/17 19:46 11/29/17 19:46 11/29/17 19:46 11/29/17 19:46 Results - Labs CBC & Chem 7: 11/29/17 19:36 11/29/17 19:36 Labs: Abnormal lab results 11/29/17 11/29/17 11/29/17 Range/Units 19:31 19:36 19:36 WBC 11.2 H (4.5-11.0) K/mm3 RBC 1.97 L (3.65-5.03) M/mm3 Hgb 5.1 L* (10.1-14.3) gm/dl Hct 17.0 L* (30.3-42.9) % MCH 26 L (28-32) pg RDW 22.1 H (13.2-15.2) % Lymph % (Auto) 6.7 L (13.4-35.0) % Lymph # 0.8 L (1.2-5.4) K/mm3 Seg Neutrophils % 85.5 H (40.0-70.0) % Seg Neutrophils # 9.6 H (1.8-7.7) K/mm3 BUN 27 H (7-17) mg/dL Creatinine 3.6 H (0.7-1.2) mg/dL ALT 6 L (7-56) units/L Alkaline Phosphatase 173 H (35-129) units/L Albumin 3.0 L (3.9-5) g/dL Crossmatch See Detail Assessment and Plan Assessment Vaginal bleed secondary to cervical cancer Blood loss anemia End-stage renal disease on dialysis Hypertension CHF, stable Plan Admit to medicine Transfuse packed red blood cells MOSAICIST consult Continue appropriate outpatient medications DVT prophylaxis
[2017-11-30] MEDS: ZOFRAN IV PRN ×2 (02:31→13:49)
[2017-11-30] MEDS ORDERED: ZOFRAN ONE (02:32)
[2017-11-30] MEDS ORDERED: SEVELAMER CARBONATE PO SCH (08:00)
[2017-11-30] MEDS ORDERED: [UNRECOGNIZED DRUG - REMARK] PO SCH (10:00)
[2017-11-30] MEDS: IMDUR PO SCH (11:17)
[2017-11-30] MEDS: PEPCID PO SCH (11:18)
[2017-11-30] MEDS: COLACE PO SCH ×2 (11:18→21:31)
[2017-11-30] MEDS: Renal Caps PO SCH (11:18)
[2017-11-30] MEDS: APRESOLINE IV PRN (11:18)
[2017-11-30] MEDS: SODIUM CHLORIDE FLUSH SYRINGE 10 ML IV SCH ×2 (11:19→21:34)
--- NOTE | 2017-11-30 11:31 | Consultation ---
History of Present Illness - Reason for Consult Consult date: 11/30/17 end stage renal disease - History of Present Illness Patient is a very pleasant 62 y/o AAF with past medical h/o ESRD in the setting of HTN, and h/o cervical CA who was admitted secondary to significant anemia, with Hemoglobin of 5, measured at her outpatient dialysis clinic. Patient was instructed to come to the ED. She had her last HD session yesterday per her MWF schedule. She also had an extra session of isolated UF on . She has a h/ o cervical CA as mentioned and she has been having worsening vaginal bleeding over the last week. She cannot quantify how many pads she has to go through but states "its a lot" she states that she has noted clots. She states that during her PT session she had felt weaker than usual and was unable to fully participate in all the activities. Patient has Left chest wall TDC that she uses for her dialysis sessions. She dialyzes at [facility]. She has received 3 units of PRBC today. Pending repeat CBC this am. Past History Past Medical History: cancer (cervical), ESRD, hypertension, hyperlipidemia Past Surgical History: Other (permacath placement , previous AVF placement , nephrectomy ) Social history: no significant social history Family history: no significant family history, hypertension (no smoking, EtOH use, no illicit drug use) Medications and Allergies Allergies Allergy/AdvReac Type Severity Reaction Status Date / Time acetaminophen [From Percocet] Allergy Nausea Verified 10/04/17 13:51 cefazolin sodium [From Ancef] Allergy Rash Verified 05/25/13 08:00 lisinopril Allergy Angioedema Verified 02/25/17 20:06 oxycodone [From Percocet] Allergy Nausea Verified 10/04/17 13:51 Penicillins Allergy Rash Verified 05/25/13 08:00 phenytoin sodium Allergy Rash Verified 05/25/13 08:00 [From Dilantin] phenytoin sodium extended Allergy Rash Verified 05/25/13 08:00 [From Dilantin] Sulfa (Sulfonamide Allergy Rash Verified 05/25/13 08:00 Antibiotics) Home Medications Medication Instructions Recorded Confirmed Last Taken Type Vit B Comp No.3/Folic/C/Biotin 1 each PO DAILY 08/30/17 11/30/17 10/24/17 08:00 History [Brick Layer-[facility]ero Rx Tablet] Acetaminophen [Acetaminophen TAB] 650 mg PO Q4H PRN tablet 09/18/17 11/30/17 Unknown Rx Nitroglycerin [Nitrostat] 0.4 mg SL .Q5MIN PRN tablet 09/18/17 11/30/17 Unknown Rx Aspirin [Aspirin BABY CHEW TAB] 81 mg PO QDAY #30 tab.chew 10/30/17 11/30/17 Unknown Rx AtorvaSTATin [Lipitor] 80 mg PO QHS #30 tablet 10/30/17 11/30/17 Unknown Rx Docusate Sodium [Colace CAP] 100 mg PO BID #60 capsule 10/30/17 11/30/17 Unknown Rx Famotidine [Pepcid] 20 mg PO QDAY #30 tablet 10/30/17 11/30/17 Unknown Rx Megestrol [Megace] 20 mg PO BID #60 tablet 10/30/17 11/30/17 Unknown Rx Sevelamer Carbonate [Renvela] 1,200 mg PO TID #60 tablet 10/30/17 11/30/17 Unknown Rx diphenhydrAMINE [Benadryl CAP] 25 mg PO Q6H PRN #14 capsule 10/30/17 11/30/17 Unknown Rx Active Meds: Active Medications Atorvastatin Calcium (Lipitor) 80 mg PO QHS [facility] Diphenhydramine HCl (Benadryl) 25 mg IV Q6H PRN PRN Reason: Itching Docusate Sodium (Colace) 100 mg PO BID [facility] Last Admin: 11/30/17 11:18 Dose: 100 mg Famotidine (Pepcid) 20 mg PO QDAY [facility] Last Admin: 11/30/17 11:18 Dose: 20 mg Hydralazine HCl (Apresoline) 5 mg IV Q6HR PRN PRN Reason: Hypertension Last Admin: 11/30/17 11:18 Dose: 5 mg Isosorbide Mononitrate (Imdur) 30 mg PO QDAY [facility] Last Admin: 11/30/17 11:17 Dose: 30 mg Miscellaneous Medication (Sevelamer Carbonate [Renvela]) 1,200 mg PO TID [facility] Multivit/Ca Carb/B Cmplx/FA/Prenat (Renal Caps) 1 cap PO QDAY [facility] Last Admin: 11/30/17 11:18 Dose: 1 cap Ondansetron HCl (Zofran) 4 mg IV Q4H PRN PRN Reason: Nausea And Vomiting Last Admin: 11/30/17 02:31 Dose: 4 mg Sodium Chloride (Sodium Chloride Flush Syringe 10 Ml) 10 ml IV BID [facility] Last Admin: 11/30/17 11:19 Dose: 10 ml Sodium Chloride (Sodium Chloride Flush Syringe 10 Ml) 10 ml IV PRN PRN PRN Reason: LINE FLUSH Review of Systems All systems: negative Constitutional: fatigue, weakness Genitourinary Female: abnormal vaginal bleeding Musculoskeletal: low back pain Exam - Vital Signs Vital signs: Vital Signs Resp 16 11/29/17 18:47 - General Appearance General appearance: well-nourished, appears stated age EENT: PERRL, mucous membranes moist Neck: Present: neck supple, trachea midline Respiratory: Clear to Ascultation, Normal Exam Heart: regular, normal heart rate Gastrointestinal: Present: normal, normoactive bowel sounds Integumentary: no rash, warm and dry Neurologic: no focal deficit, no asterixis Musculoskeletal: Present: deferred, other (edema of lower extremities, better and improving with extra UF sessions,) Psychiatric: mood/affect appropriate, cooperative Results - Lab Results 11/29/17 19:36 11/29/17 19:36 Most recent lab results Calcium 8.4 mg/dL (8.4-10.2) 11/29/17 19:36 Magnesium 2.20 mg/dL (1.7-2.3) 11/29/17 19:36 Assessment and Plan - Patient Problems (1) ESRD (end stage renal disease) Current Visit: No Status: Chronic Plan to address problem: Patient's on a MWF HD schedule. Labs noted, and she had a complete session yesterday. No acute needs for HD at this time. (2) Symptomatic anemia Current Visit: Yes Status: Acute Plan to address problem: s/p transfusion of 3 units of PRBCs. Will continue to monitor her CBC for response with transfusions. (3) Hypertensive chronic kidney disease with stage 5 chronic kidney disease or end stage renal disease Current Visit: No Status: Chronic Plan to address problem: Please have patient be restarted on her home medications. Will monitor. (4) Secondary hyperparathyroidism (of renal origin) Current Visit: Yes Status: Chronic Plan to address problem: Can continue her outpatient phos binder regimen.
--- NOTE | 2017-11-30 12:47 | Progress Note ---
Assessment and Plan Assessment and plan: --History of cervical cancer severe vaginal bleeding; Continue current management, closely monitor H&H, pending FOLDING MACHINE OPERATOR evaluation Supportive care --Acute on chronic blood loss anemia; requiring blood transfusion Status post 2 units PRBC, closely monitor H&H and transfuse additional as needed --End stage renal disease; on hemodialysis, nephrology following Dialysis per schedule --Hypertension; moderate control, continue current antihypertensives When necessary medications --Congestive heart failure; input-output monitoring Low-sodium diet, fluid restriction --DVT prophylaxis; SCDs No pharmacological anticoagulation in view of severe anemia Follow FOLDING MACHINE OPERATOR evaluation and recommendations Possible discharge in 1-2 days if stable History Interval history: Patient seen and examined medical records reviewed No new events reported by the nursing staff History of cervical cancer with vaginal bleeding, acute on chronic blood loss anemia Receiving blood transfusion Pending FOLDING MACHINE OPERATOR evaluation Patient feels slightly better no new complaints Vital signs reviewed Hospitalist Physical - Constitutional Vitals: Temp Pulse Resp BP Pulse Ox 98.3 F 89 22 170/63 96 11/30/17 11:40 11/30/17 11:40 11/30/17 11:40 11/30/17 11:40 11/30/17 11:40 General appearance: Present: no acute distress, well-nourished - EENT Eyes: Present: PERRL, EOM intact - Neck Neck: Present: supple, normal ROM - Respiratory Respiratory effort: normal Respiratory: bilateral: diminished, rhonchi, negative: rales, wheezing - Cardiovascular Rhythm: regular Heart Sounds: Present: S1 & S2 - Extremities Extremities: no ischemia, No edema - Abdominal General gastrointestinal: soft, non-tender, non-distended, normal bowel sounds - Integumentary Integumentary: Present: clear, warm - Psychiatric Psychiatric: appropriate mood/affect, cooperative - Neurologic Neurologic: moves all extremities Results - Labs CBC & Chem 7: 11/30/17 13:31 11/30/17 13:31 Labs: Laboratory Last Values WBC 11.2 K/mm3 (4.5-11.0) H 11/29/17 19:36 RBC 1.97 M/mm3 (3.65-5.03) L 11/29/17 19:36 Hgb 5.1 gm/dl (10.1-14.3) L* 11/29/17 19:36 Hct 17.0 % (30.3-42.9) L* 11/29/17 19:36 MCV 87 fl (79-97) 11/29/17 19:36 MCH 26 pg (28-32) L 11/29/17 19:36 MCHC 30 % (30-34) 11/29/17 19:36 RDW 22.1 % (13.2-15.2) H 11/29/17 19:36 Plt Count 325 K/mm3 (140-440) 11/29/17 19:36 Lymph % (Auto) 6.7 % (13.4-35.0) L 11/29/17 19:36 [place] % (Auto) 7.1 % (0.0-7.3) 11/29/17 19:36 Eos % (Auto) 0.4 % (0.0-4.3) 11/29/17 19:36 Baso % (Auto) 0.3 % (0.0-1.8) 11/29/17 19:36 Lymph # 0.8 K/mm3 (1.2-5.4) L 11/29/17 19:36 [place] # 0.8 K/mm3 (0.0-0.8) 11/29/17 19:36 Eos # 0.1 K/mm3 (0.0-0.4) 11/29/17 19:36 Baso # 0.0 K/mm3 (0.0-0.1) 11/29/17 19:36 Seg Neutrophils % 85.5 % (40.0-70.0) H 11/29/17 19:36 Seg Neutrophils # 9.6 K/mm3 (1.8-7.7) H 11/29/17 19:36 Sodium 138 mmol/L (137-145) 11/29/17 19:36 Potassium 3.9 mmol/L (3.6-5.0) 11/29/17 19:36 Chloride 99.5 mmol/L (98-107) 11/29/17 19:36 Carbon Dioxide 25 mmol/L (22-30) 11/29/17 19:36 Anion Gap 17 mmol/L 11/29/17 19:36 BUN 27 mg/dL (7-17) H 11/29/17 19:36 Creatinine 3.6 mg/dL (0.7-1.2) H 11/29/17 19:36 Estimated GFR 16 ml/min 11/29/17 19:36 BUN/Creatinine Ratio 8 % 11/29/17 19:36 Glucose 94 mg/dL (65-100) 11/29/17 19:36 Calcium 8.4 mg/dL (8.4-10.2) 11/29/17 19:36 Magnesium 2.20 mg/dL (1.7-2.3) 11/29/17 19:36 Total Bilirubin 0.20 mg/dL (0.1-1.2) 11/29/17 19:36 AST 21 units/L (5-40) 11/29/17 19:36 ALT 6 units/L (7-56) L 11/29/17 19:36 Alkaline Phosphatase 173 units/L (35-129) H 11/29/17 19:36 Total Protein 6.8 g/dL (6.3-8.2) 11/29/17 19:36 Albumin 3.0 g/dL (3.9-5) L 11/29/17 19:36 Albumin/Globulin Ratio 0.8 % 11/29/17 19:36 Blood Type B POSITIVE 11/29/17 19:31 Antibody Screen Positive 11/29/17 19:31 Antibody Identification Anti-K 11/29/17 19:31 Crossmatch See Detail 11/29/17 19:31
[2017-11-30 14:06] LABS: Basophils # (Auto) 0.1 K/mm3 (0.0-0.1); Basophils % (Auto) 0.5 % (0.0-1.8); Eosinophils % (Auto) 0.3 % (0.0-4.3); Hematocrit 25.6 % (30.3-42.9); Hemoglobin 8.2 gm/dl (10.1-14.3); Lymphocytes # (Auto) 0.9 K/mm3 (1.2-5.4); Lymphocytes % (Auto) 5.2 % (13.4-35.0); Mean Corpuscular HGB Conc 32 % (30-34); Mean Corpuscular Hemoglobin 28 pg (28-32); Mean Corpuscular Volume 86 fl (79-97); Monocytes % (Auto) 6.3 % (0.0-7.3); Platelet Count 344 K/mm3 (140-440); Red Blood Count 2.97 M/mm3 (3.65-5.03); Red Cell Distribution Width 18.3 % (13.2-15.2)
[2017-11-30 14:24] LABS: Calcium 9.1 mg/dL (8.4-10.2)
[2017-11-30] MEDS: ALUM-MAG HYDROX-SIMETH 200-200-20MG/5ML PO PRN ×2 (15:16→21:31)
--- NOTE | 2017-11-30 16:17 | Consultation ---
History of Present Illness Consult date: 11/30/17 Requesting physician: DWIGHT TRONCOSO Reason for consult: other (cervical cancer; vaginal bleeding) History of present illness: 62-year-old woman with a history of end-stage renal disease on dialysis, hypertension, CHF, stage IV cervical cancer was sent to the emergency room for evaluation of abnormal hemoglobin from dialysis center. Pt states she sees Dr. Kerry Castañeda with [facility] oncology group and has had dx of cx cancer for the past month. Much of history was given by her . He states she has minimal just light pink bleeding now, wihich I also just noted in the toilet which he showed to me, but bleeding varies from pink to dark purple. Sometimes she does pass clots. Pt states that two days prior she had abdominal cramping and did pass some clots. Pt and state she has gotten 3 units of blood. H /H has had a good response. Both pt and asking when she would be d/c home now that blood has been given. I advised that this would be up to the primary teams. Pt has not started treatments for the cervical cancer stating that the vascular specialist and oncology are trying to coordinate care. Pt has had no bleeding since menopause until 6 months ago. She reports having no previous pregnancies or abnormal pap smears. pt states she does not have pain at this time and states the small blood seen in the toilet at this time is all the bleeding she is having. I did not do pelvic exam given pt has limit mobility and she already has a diagnosis of cervical cancer with appropriate follow scheduled. 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 History: denies: abnormal PAP smear Social history: no significant social history, Medications and Allergies Allergies Allergy/AdvReac Type Severity Reaction Status Date / Time acetaminophen [From Percocet] Allergy Nausea Verified 10/04/17 13:51 cefazolin sodium [From Ancef] Allergy Rash Verified 05/25/13 08:00 lisinopril Allergy Angioedema Verified 02/25/17 20:06 oxycodone [From Percocet] Allergy Nausea Verified 10/04/17 13:51 Penicillins Allergy Rash Verified 05/25/13 08:00 phenytoin sodium Allergy Rash Verified 05/25/13 08:00 [From Dilantin] phenytoin sodium extended Allergy Rash Verified 05/25/13 08:00 [From Dilantin] Sulfa (Sulfonamide Allergy Rash Verified 05/25/13 08:00 Antibiotics) Home Medications Medication Instructions Recorded Confirmed Last Taken Type Vit B Comp No.3/Folic/C/Biotin 1 each PO DAILY 08/30/17 11/30/17 10/24/17 08:00 History [Bible Teacher-[facility] Rx Tablet] Acetaminophen [Acetaminophen TAB] 650 mg PO Q4H PRN tablet 09/18/17 11/30/17 Unknown Rx Nitroglycerin [Nitrostat] 0.4 mg SL .Q5MIN PRN tablet 09/18/17 11/30/17 Unknown Rx Aspirin [Aspirin BABY CHEW TAB] 81 mg PO QDAY #30 tab.chew 10/30/17 11/30/17 Unknown Rx AtorvaSTATin [Lipitor] 80 mg PO QHS #30 tablet 10/30/17 11/30/17 Unknown Rx Docusate Sodium [Colace CAP] 100 mg PO BID #60 capsule 10/30/17 11/30/17 Unknown Rx Famotidine [Pepcid] 20 mg PO QDAY #30 tablet 10/30/17 11/30/17 Unknown Rx Megestrol [Megace] 20 mg PO BID #60 tablet 10/30/17 11/30/17 Unknown Rx Sevelamer Carbonate [Renvela] 1,200 mg PO TID #60 tablet 10/30/17 11/30/17 Unknown Rx diphenhydrAMINE [Benadryl CAP] 25 mg PO Q6H PRN #14 capsule 10/30/17 11/30/17 Unknown Rx Active Meds: Active Medications Al Hydrox/Mg Hydrox/Simethicone (Alum-Mag Hydrox-Simeth [id number]/5ml) 15 ml PO Q4H PRN PRN Reason: Indigestion Last Admin: 11/30/17 15:16 Dose: 15 ml Atorvastatin Calcium (Lipitor) 80 mg PO QHS [facility] Diphenhydramine HCl (Benadryl) 25 mg IV Q6H PRN PRN Reason: Itching Docusate Sodium (Colace) 100 mg PO BID [facility] Last Admin: 11/30/17 11:18 Dose: 100 mg Famotidine (Pepcid) 20 mg PO QDAY [facility] Last Admin: 11/30/17 11:18 Dose: 20 mg Hydralazine HCl (Apresoline) 5 mg IV Q6HR PRN PRN Reason: Hypertension Last Admin: 11/30/17 11:18 Dose: 5 mg Isosorbide Mononitrate (Imdur) 30 mg PO QDAY [facility] Last Admin: 11/30/17 11:17 Dose: 30 mg Multivit/Ca Carb/B Cmplx/FA/Prenat (Renal Caps) 1 cap PO QDAY [facility] Last Admin: 11/30/17 11:18 Dose: 1 cap Ondansetron HCl (Zofran) 4 mg IV Q4H PRN PRN Reason: Nausea And Vomiting Last Admin: 11/30/17 13:49 Dose: 4 mg Sevelamer Carbonate (Renvela) 800 mg PO AC [facility] Sodium Chloride (Sodium Chloride Flush Syringe 10 Ml) 10 ml IV BID [facility] Last Admin: 11/30/17 11:19 Dose: 10 ml Sodium Chloride (Sodium Chloride Flush Syringe 10 Ml) 10 ml IV PRN PRN PRN Reason: LINE FLUSH Review of Systems All systems: negative - Vital Signs Vital signs: Vital Signs Resp 16 11/29/17 18:47 Temp Pulse Resp BP Pulse Ox 98.3 F 89 22 170/63 96 11/30/17 11:40 11/30/17 11:40 11/30/17 11:40 11/30/17 11:40 11/30/17 11:40 - Physical Exam Cardiovascular: Normal S1, Normal S2 Lungs: Positive: Normal air movement, Other (nasal canula in place but no O2 on at this time) Abdomen: Positive: normal appearance, soft Genitourinary (Female): Positive: other (deferred. ) Results Result Diagrams: 11/30/17 13:31 11/30/17 13:31 Abnormal lab results 11/29/17 11/29/17 11/29/17 Range/Units 19:31 19:36 19:36 WBC 11.2 H (4.5-11.0) K/mm3 RBC 1.97 L (3.65-5.03) M/mm3 Hgb 5.1 L* (10.1-14.3) gm/dl Hct 17.0 L* (30.3-42.9) % MCH 26 L (28-32) pg RDW 22.1 H (13.2-15.2) % Lymph % (Auto) 6.7 L (13.4-35.0) % Lymph # 0.8 L (1.2-5.4) K/mm3 [place] # (0.0-0.8) K/mm3 Seg Neutrophils % 85.5 H (40.0-70.0) % Seg Neutrophils # 9.6 H (1.8-7.7) K/mm3 BUN 27 H (7-17) mg/dL Creatinine 3.6 H (0.7-1.2) mg/dL Glucose (65-100) mg/dL ALT 6 L (7-56) units/L Alkaline Phosphatase 173 H (35-129) units/L Albumin 3.0 L (3.9-5) g/dL Crossmatch See Detail 11/30/17 11/30/17 Range/Units 13:31 13:31 WBC 16.5 H (4.5-11.0) K/mm3 RBC 2.97 L (3.65-5.03) M/mm3 Hgb 8.2 L D (10.1-14.3) gm/dl Hct 25.6 L D (30.3-42.9) % MCH (28-32) pg RDW 18.3 H (13.2-15.2) % Lymph % (Auto) 5.2 L (13.4-35.0) % Lymph # 0.9 L (1.2-5.4) K/mm3 [place] # 1.0 H (0.0-0.8) K/mm3 Seg Neutrophils % 87.7 H (40.0-70.0) % Seg Neutrophils # 14.5 H (1.8-7.7) K/mm3 BUN 33 H (7-17) mg/dL Creatinine 4.6 H (0.7-1.2) mg/dL Glucose 114 H (65-100) mg/dL ALT (7-56) units/L Alkaline Phosphatase (35-129) units/L Albumin (3.9-5) g/dL Crossmatch All other labs normal. Assessment and Plan - Patient Problems (1) Symptomatic anemia Current Visit: Yes Status: Acute (2) Acute blood loss anemia Current Visit: No Status: Acute Plan to address problem: -pt currently has vaginal bleeding that is minimal. She states it does vary but she is not bleeding heavily at this time. (3) Acute on chronic renal failure Current Visit: No Status: Acute (4) Primary cervical cancer with metastasis to other site Current Visit: No Status: Chronic Plan to address problem: I have spoken with Dr Cedeño who is court recording monitor for Dr.Evelyn Castañeda ([phone] ) to let her know the pt was admitted and to see when next f/u apt with her is. I an told that the final patholgy from bx that were taken were still pending at this time. I informed Dr. Cedeño that I advised pt She was to keep scheduled apt with oncologist and if she has any further heavy bleeding to call her oncology provider or f/u in one of the [facility] facilities where her provider can be able to take care of her. At this time she has no immediate fluorescent solution mixer concerns and is not having heavy vaginal bleeding. Will sign off at this time and please reconsult as needed prn immediate fluorescent solution mixer concerns. Thank you for the consultation.
[2017-11-30] MEDS: RENVELA PO SCH (17:05)
[2017-11-30] MEDS: NORCO 5/325 PO PRN (22:50)
[2017-12-01] MEDS: APRESOLINE IV PRN ×3 (00:36→23:04)
[2017-12-01] MEDS: Renal Caps PO SCH (09:08)
[2017-12-01] MEDS: COLACE PO SCH ×2 (09:08→23:02)
[2017-12-01] MEDS: PEPCID PO SCH (09:09)
[2017-12-01] MEDS: IMDUR PO SCH (09:09)
[2017-12-01] MEDS: RENVELA PO SCH ×3 (09:09→18:29)
[2017-12-01] MEDS: SODIUM CHLORIDE FLUSH SYRINGE 10 ML IV SCH ×3 (09:10→23:07)
--- NOTE | 2017-12-01 11:12 | Progress Note ---
Assessment and Plan - Patient Problems (1) ESRD (end stage renal disease) Current Visit: No Status: Chronic Plan to address problem: Patient's on a MWF HD schedule. Labs noted, and she had a complete session Saturday. No acute needs for HD at this time. Next Session tomorrow (2) Symptomatic anemia Current Visit: Yes Status: Acute Plan to address problem: s/p transfusion of 3 units of PRBCs. H/H this am noted Will continue to closely monitor. If needed, she can receive transfusions with dialysis. (3) Hypertensive chronic kidney disease with stage 5 chronic kidney disease or end stage renal disease Current Visit: No Status: Chronic Plan to address problem: Please has been restarted on her home medications. Blood pressure control noted. Will add amlodipine 5 mg to current regimen. (4) Secondary hyperparathyroidism (of renal origin) Current Visit: Yes Status: Chronic Plan to address problem: Can continue her outpatient phos binder regimen. Subjective Date of service: 12/01/17 Interval history: She unfortunately had another episode of vaginal bleeding. She is also feeling more weaker this morning. Objective - Vital Signs Vital signs: Vital Signs - 12hr 11/30/17 12/01/17 12/01/17 23:42 00:36 05:53 Temperature 98.5 F Pulse Rate 98 H 94 H 89 Respiratory 20 Rate Blood Pressure 172/101 163/95 174/99 Blood Pressure [Right] O2 Sat by Pulse 97 Oximetry 12/01/17 12/01/17 06:51 09:09 Temperature Pulse Rate 97 H 97 H Respiratory Rate Blood Pressure 172/97 Blood Pressure 172/97 [Right] O2 Sat by Pulse Oximetry - General Appearance General appearance: appears stated age, chronically ill EENT: PERRL, mucous membranes moist Neck: no JVD, no thyromegaly Respiratory: Present: Clear to Ascultation, Normal Exam Cardiology: regular, normal heart rate, S1S2 Gastrointestinal: normal, normoactive bowel sounds Integumentary: no rash, warm and dry Neurologic: no focal deficit, no asterixis Musculoskeletal: deferred Psychiatric: mood/affect appropriate - Lab 11/30/17 13:31 11/30/17 13:31 Most recent lab results Calcium 9.1 mg/dL (8.4-10.2) 11/30/17 13:31 Magnesium 2.20 mg/dL (1.7-2.3) 11/29/17 19:36 - Allied health notes Allied health notes reviewed: nursing
[2017-12-01 11:42] LABS: Basophils # (Auto) 0.1 K/mm3 (0.0-0.1); Basophils % (Auto) 0.3 % (0.0-1.8); Eosinophils % (Auto) 0.2 % (0.0-4.3); Hematocrit 25.4 % (30.3-42.9); Hemoglobin 8.2 gm/dl (10.1-14.3); Lymphocytes # (Auto) 0.6 K/mm3 (1.2-5.4); Mean Corpuscular HGB Conc 32 % (30-34); Mean Corpuscular Hemoglobin 28 pg (28-32); Mean Corpuscular Volume 85 fl (79-97); Monocytes # (Auto) 0.9 K/mm3 (0.0-0.8); Monocytes % (Auto) 5.5 % (0.0-7.3); Platelet Count 397 K/mm3 (140-440); Red Blood Count 2.97 M/mm3 (3.65-5.03); Red Cell Distribution Width 18.6 % (13.2-15.2)
[2017-12-01 11:56] LABS: Calcium 9.3 mg/dL (8.4-10.2)
[2017-12-01] MEDS: NORCO 5/325 PO PRN ×3 (11:59→23:30)
[2017-12-01] MEDS: ZOFRAN IV PRN (12:00)
[2017-12-01] MEDS ORDERED: ZOFRAN ODT PO PRN (12:39)
--- NOTE | 2017-12-01 12:44 | Progress Note ---
Assessment and Plan Assessment and plan: --Acute on chronic blood loss anemia; requiring blood transfusion Status post 2 units PRBC, Hb 8.2 --History of cervical cancer severe vaginal bleeding; Continue current management, closely monitor H&H, VENEER TAPING MACHINE OFFBEARER evaluation noted, outpatient follow-up Supportive care --End stage renal disease; on hemodialysis, nephrology following Dialysis per schedule --Hypertension; moderate control, continue current antihypertensives When necessary medications --Congestive heart failure; input-output monitoring Low-sodium diet, fluid restriction --DVT prophylaxis; SCDs No pharmacological anticoagulation in view of severe anemia Follow VENEER TAPING MACHINE OFFBEARER evaluation and recommendations Possible discharge home tomorrow if stable Hospitalist Physical - Constitutional Vitals: Temp Pulse Resp BP Pulse Ox 98.6 F 97 H 20 164/54 97 12/01/17 11:31 12/01/17 11:31 12/01/17 11:31 12/01/17 11:31 12/01/17 12:38 General appearance: Present: no acute distress, well-nourished - EENT Eyes: Present: PERRL, EOM intact - Neck Neck: Present: supple, normal ROM - Respiratory Respiratory effort: normal Respiratory: bilateral: diminished, negative: rales, rhonchi, wheezing - Cardiovascular Rhythm: regular Heart Sounds: Present: S1 & S2 - Extremities Extremities: no ischemia, No edema - Abdominal General gastrointestinal: soft, non-tender, non-distended, normal bowel sounds - Integumentary Integumentary: Present: clear, warm - Psychiatric Psychiatric: appropriate mood/affect, cooperative - Neurologic Neurologic: CNII-XII intact, moves all extremities Results - Labs CBC & Chem 7: 12/01/17 10:52 12/01/17 10:52 Labs: Laboratory Last Values WBC 15.7 K/mm3 (4.5-11.0) H 12/01/17 10:52 RBC 2.97 M/mm3 (3.65-5.03) L 12/01/17 10:52 Hgb 8.2 gm/dl (10.1-14.3) L 12/01/17 10:52 Hct 25.4 % (30.3-42.9) L 12/01/17 10:52 MCV 85 fl (79-97) 12/01/17 10:52 MCH 28 pg (28-32) 12/01/17 10:52 MCHC 32 % (30-34) 12/01/17 10:52 RDW 18.6 % (13.2-15.2) H 12/01/17 10:52 Plt Count 397 K/mm3 (140-440) 12/01/17 10:52 Lymph % (Auto) 4.0 % (13.4-35.0) L 12/01/17 10:52 [place] % (Auto) 5.5 % (0.0-7.3) 12/01/17 10:52 Eos % (Auto) 0.2 % (0.0-4.3) 12/01/17 10:52 Baso % (Auto) 0.3 % (0.0-1.8) 12/01/17 10:52 Lymph # 0.6 K/mm3 (1.2-5.4) L 12/01/17 10:52 [place] # 0.9 K/mm3 (0.0-0.8) H 12/01/17 10:52 Eos # 0.0 K/mm3 (0.0-0.4) 12/01/17 10:52 Baso # 0.1 K/mm3 (0.0-0.1) 12/01/17 10:52 Seg Neutrophils % 90.0 % (40.0-70.0) H 12/01/17 10:52 Seg Neutrophils # 14.1 K/mm3 (1.8-7.7) H 12/01/17 10:52 Sodium 136 mmol/L (137-145) L 12/01/17 10:52 Potassium 4.6 mmol/L (3.6-5.0) 12/01/17 10:52 Chloride 95.3 mmol/L (98-107) L 12/01/17 10:52 Carbon Dioxide 23 mmol/L (22-30) 12/01/17 10:52 Anion Gap 22 mmol/L 12/01/17 10:52 BUN 39 mg/dL (7-17) H 12/01/17 10:52 Creatinine 4.9 mg/dL (0.7-1.2) H 12/01/17 10:52 Estimated GFR 11 ml/min 12/01/17 10:52 BUN/Creatinine Ratio 8 % 12/01/17 10:52 Glucose 94 mg/dL (65-100) 12/01/17 10:52 Calcium 9.3 mg/dL (8.4-10.2) 12/01/17 10:52 Magnesium 2.20 mg/dL (1.7-2.3) 11/29/17 19:36 Total Bilirubin 0.20 mg/dL (0.1-1.2) 11/29/17 19:36 AST 21 units/L (5-40) 11/29/17 19:36 ALT 6 units/L (7-56) L 11/29/17 19:36 Alkaline Phosphatase 173 units/L (35-129) H 11/29/17 19:36 Total Protein 6.8 g/dL (6.3-8.2) 11/29/17 19:36 Albumin 3.0 g/dL (3.9-5) L 11/29/17 19:36 Albumin/Globulin Ratio 0.8 % 11/29/17 19:36 Blood Type B POSITIVE 11/29/17 19:31 Antibody Screen Positive 11/29/17 19:31 Antibody Identification Anti-K 11/29/17 19:31 Crossmatch See Detail 11/29/17 19:31
[2017-12-01] MEDS ORDERED: NACL 0.9% 100 ML IV PRN (14:46)
[2017-12-01] MEDS: NORVASC PO SCH (15:44)
[2017-12-01] MEDS: ALUM-MAG HYDROX-SIMETH 200-200-20MG/5ML PO PRN (15:45)
[2017-12-02] MEDS: RENVELA PO SCH ×3 (08:53→17:52)
[2017-12-02 08:58] LABS: Basophils % (Auto) 0.3 % (0.0-1.8); Eosinophils % (Auto) 0.2 % (0.0-4.3); Hematocrit 25.5 % (30.3-42.9); Hemoglobin 8.3 gm/dl (10.1-14.3); Lymphocytes # (Auto) 0.6 K/mm3 (1.2-5.4); Mean Corpuscular HGB Conc 33 % (30-34); Mean Corpuscular Hemoglobin 28 pg (28-32); Mean Corpuscular Volume 85 fl (79-97); Monocytes # (Auto) 0.9 K/mm3 (0.0-0.8); Monocytes % (Auto) 5.8 % (0.0-7.3); Platelet Count 424 K/mm3 (140-440); Red Cell Distribution Width 19.5 % (13.2-15.2)
[2017-12-02 09:16] LABS: Calcium 9.5 mg/dL (8.4-10.2)
[2017-12-02] MEDS: Renal Caps PO SCH (10:20)
[2017-12-02] MEDS: NORCO 5/325 PO PRN ×2 (10:20→17:51)
[2017-12-02] MEDS: COLACE PO SCH ×2 (10:20→23:02)
[2017-12-02] MEDS: PEPCID PO SCH (10:20)
[2017-12-02] MEDS: SODIUM CHLORIDE FLUSH SYRINGE 10 ML IV SCH ×2 (10:21→23:03)
[2017-12-02] MEDS: ALUM-MAG HYDROX-SIMETH 200-200-20MG/5ML PO PRN (12:02)
--- NOTE | 2017-12-02 17:20 | Discharge Summary ---
Providers - Providers Date of Admission: 11/29/17 22:41 Date of discharge: 12/03/17 Attending physician: NICK SINGLETON 11/30/17 06:52 Consult to Physician [CONS] Routine Comment: Consulting Provider: RAMÓN MAN Physician Instructions: Reason For Exam: cervical cancer, vag bleed, anemia Primary care physician: ALEXANDER IRIZARRY Hospitalization Condition: Stable Disposition: [id number]/[place]-06 HOME UNDER [facility] Time spent for discharge: 32 min Core Measure Documentation - Palliative Care Palliative Care/ Comfort Measures: Not Applicable - Core Measures Any of the following diagnoses?: none Exam - Constitutional Vitals: Temp Pulse Resp BP Pulse Ox 98.4 F 98 H 20 135/87 97 12/02/17 14:45 12/02/17 16:45 12/02/17 14:45 12/02/17 16:45 12/02/17 14:45 General appearance: Present: no acute distress, well-nourished - EENT Eyes: Present: PERRL, EOM intact - Neck Neck: Present: supple, normal ROM - Respiratory Respiratory effort: normal Respiratory: negative: rales, rhonchi, wheezing - Cardiovascular Rhythm: regular Heart Sounds: Present: S1 & S2 - Extremities Extremities: no ischemia, No edema - Abdominal General gastrointestinal: Present: soft, non-tender, non-distended - Integumentary Integumentary: Present: clear, warm - Musculoskeletal Musculoskeletal: strength equal bilaterally - Psychiatric Psychiatric: appropriate mood/affect, cooperative - Neurologic Neurologic: moves all extremities Plan Activity: advance as tolerated, fall precautions Diet: renal Additional Instructions: f/u private ELECTRONICS ENGINEERING PROFESSOR per schedule. f/u renal /HD per schedule Follow up with: SHAN KRAUS MD [Referring] - 3-5 Days ALEXANDER IRIZARRY MD [Primary Care Provider] - 7 Days Prescriptions: amLODIPine [Norvasc] 5 mg PO QDAY #30 tablet AtorvaSTATin [Lipitor] 80 mg PO QHS #30 tablet Famotidine [Pepcid] 20 mg PO QDAY #30 tablet ISOSORBIDE MONOnitrate [Imdur ER] 30 mg PO DAILY #30 tablet Megestrol [Megace] 20 mg PO BID #60 tablet Sevelamer Carbonate [Renvela] 1,200 mg PO TID #60 tablet Vit B Comp No.3/Folic/C/Biotin [Data Operations Director-[facility] Rx Tablet] 1 each PO DAILY #30 tablet
--- NOTE | 2017-12-02 20:54 | Progress Note ---
Assessment and Plan Assessment and plan: --Acute on chronic blood loss anemia; requiring blood transfusion Status post 2 units PRBC, Hb 8.2 --History of cervical cancer severe vaginal bleeding; Continue current management, closely monitor H&H, DIGESTER COOK evaluation noted, outpatient follow-up Supportive care --End stage renal disease; on hemodialysis, nephrology following Dialysis per schedule --Hypertension; moderate control, continue current antihypertensives When necessary medications --Congestive heart failure; input-output monitoring Low-sodium diet, fluid restriction --DVT prophylaxis; SCDs No pharmacological anticoagulation in view of severe anemia Follow DIGESTER COOK evaluation and recommendations Possible discharge home tomorrow if stable Hospitalist Physical - Constitutional Vitals: Temp Pulse Resp BP Pulse Ox 98.3 F 99 H 20 133/86 97 12/02/17 18:25 12/02/17 18:25 12/02/17 18:25 12/02/17 18:25 12/02/17 18:25 General appearance: Present: no acute distress, well-nourished Results - Labs CBC & Chem 7: 12/02/17 08:09 12/02/17 08:09 Labs: Laboratory Last Values WBC 15.4 K/mm3 (4.5-11.0) H 12/02/17 08:09 RBC 3.00 M/mm3 (3.65-5.03) L 12/02/17 08:09 Hgb 8.3 gm/dl (10.1-14.3) L 12/02/17 08:09 Hct 25.5 % (30.3-42.9) L 12/02/17 08:09 MCV 85 fl (79-97) 12/02/17 08:09 MCH 28 pg (28-32) 12/02/17 08:09 MCHC 33 % (30-34) 12/02/17 08:09 RDW 19.5 % (13.2-15.2) H 12/02/17 08:09 Plt Count 424 K/mm3 (140-440) 12/02/17 08:09 Lymph % (Auto) 4.0 % (13.4-35.0) L 12/02/17 08:09 [place] % (Auto) 5.8 % (0.0-7.3) 12/02/17 08:09 Eos % (Auto) 0.2 % (0.0-4.3) 12/02/17 08:09 Baso % (Auto) 0.3 % (0.0-1.8) 12/02/17 08:09 Lymph # 0.6 K/mm3 (1.2-5.4) L 12/02/17 08:09 [place] # 0.9 K/mm3 (0.0-0.8) H 12/02/17 08:09 Eos # 0.0 K/mm3 (0.0-0.4) 12/02/17 08:09 Baso # 0.0 K/mm3 (0.0-0.1) 12/02/17 08:09 Seg Neutrophils % 89.7 % (40.0-70.0) H 12/02/17 08:09 Seg Neutrophils # 13.8 K/mm3 (1.8-7.7) H 12/02/17 08:09 Sodium 138 mmol/L (137-145) 12/02/17 08:09 Potassium 5.2 mmol/L (3.6-5.0) H 12/02/17 08:09 Chloride 95.1 mmol/L (98-107) L 12/02/17 08:09 Carbon Dioxide 22 mmol/L (22-30) 12/02/17 08:09 Anion Gap 26 mmol/L 12/02/17 08:09 BUN 42 mg/dL (7-17) H 12/02/17 08:09 Creatinine 5.6 mg/dL (0.7-1.2) H 12/02/17 08:09 Estimated GFR 9 ml/min 12/02/17 08:09 BUN/Creatinine Ratio 8 % 12/02/17 08:09 Glucose 86 mg/dL (65-100) 12/02/17 08:09 Calcium 9.5 mg/dL (8.4-10.2) 12/02/17 08:09 Magnesium 2.20 mg/dL (1.7-2.3) 11/29/17 19:36 Total Bilirubin 0.20 mg/dL (0.1-1.2) 11/29/17 19:36 AST 21 units/L (5-40) 11/29/17 19:36 ALT 6 units/L (7-56) L 11/29/17 19:36 Alkaline Phosphatase 173 units/L (35-129) H 11/29/17 19:36 Total Protein 6.8 g/dL (6.3-8.2) 11/29/17 19:36 Albumin 3.0 g/dL (3.9-5) L 11/29/17 19:36 Albumin/Globulin Ratio 0.8 % 11/29/17 19:36 Blood Type B POSITIVE 11/29/17 19:31 Antibody Screen Positive 11/29/17 19:31 Antibody Identification Anti-K 11/29/17 19:31 Crossmatch See Detail 11/29/17 19:31
[2017-12-02] MEDS: NORVASC PO SCH (23:02)
[2017-12-02] MEDS: IMDUR PO SCH (23:02)
[2017-12-03 06:19] VITALS: BP 160/88
[2017-12-03] MEDS: NORVASC PO SCH ×2 (08:43→09:28)
[2017-12-03] MEDS: RENVELA PO SCH (08:43)
[2017-12-03] MEDS: IMDUR PO SCH ×2 (08:43→09:27)
[2017-12-03] MEDS: Renal Caps PO SCH ×2 (08:43→09:28)
[2017-12-03] MEDS: COLACE PO SCH ×2 (08:44→09:27)
[2017-12-03] MEDS: SODIUM CHLORIDE FLUSH SYRINGE 10 ML IV SCH ×2 (08:44→09:28)
[2017-12-03] MEDS: PEPCID PO SCH ×2 (08:44→09:28)
[2017-12-03] MEDS: ALUM-MAG HYDROX-SIMETH 200-200-20MG/5ML PO PRN (09:27)
--- NOTE | 2017-12-03 11:19 | Query- Heart Failure ---
Dear ___Krystal Date:___12/03/17 Events Administrative Assistant/CDS:___chiloi Phone#:____[phone] Exercise your independent professional judgment when responding to query. Questions asked do not imply a particular answer is desired or expected. We greatly appreciate your clarification on this issue. Clinical Documentation States: 62-year-old woman with a history of end-stage renal disease on dialysis, hypertension, CHF, stage IV cervical cancer was sent to the emergency room for evaluation of abnormal hemoglobin. Patient states she's been feeling weak. She has vaginal bleed on and off, started again today, typically uses 3 pads a day. Assessment and plan: Taken from progress note () on 12/02/17 Congestive heart failure; input-output monitoring Low-sodium diet, fluid restriction End stage renal disease; on hemodialysis, Acute on chronic blood loss anemia; If possible, Please Clarify if you mean: Acuity: [ ] Acute [x ] Acute on Chronic [ ] Chronic Type: [ ] Systolic Heart Failure [x ] Diastolic Heart Failure [ ] Combined Heart Failure [ ] Other: Present on Admission: [ x] Yes (Y) [ ] Clinically undeterminable (W) [ ] No (N) Please also document response in your Progress Notes and/or Discharge Summary and indicate if the condition was present on admission. YIMI
== END 2017-12-03 10:56 | disposition home health service (06) | DRG 754 ==
LOC: ED 17:30 → 3A 22:41
PROVIDERS: ADMIT Internal Medicine; ATTEND Internal Medicine
PROC: 30233N1 Transfusion of Nonautologous Red Blood Cells into Peripheral Vein, Percutaneous Approach (ICD-10-PCS; principal; 2017-11-29)
PROC: 5A1D70Z Performance of Urinary Filtration, Intermittent, Less than 6 Hours Per Day (ICD-10-PCS; 2017-12-02)
DX: C53.9 Malignant neoplasm of cervix uteri, unspecified (principal); I50.33 Acute on chronic diastolic (congestive) heart failure; N18.6 End stage renal disease; I13.2 Hypertensive heart and chronic kidney disease with heart failure and with stage 5 chronic kidney disease, or end stage renal disease; D62 Acute posthemorrhagic anemia; N25.81 Secondary hyperparathyroidism of renal origin; N17.9 Acute kidney failure, unspecified; C79.89 Secondary malignant neoplasm of other specified sites; N93.9 Abnormal uterine and vaginal bleeding, unspecified; J44.9 Chronic obstructive pulmonary disease, unspecified; Z88.0 Allergy status to penicillin; Z88.2 Allergy status to sulfonamides; Z88.5 Allergy status to narcotic agent; Z79.82 Long term (current) use of aspirin; Z79.899 Other long term (current) drug therapy; Z90.5 Acquired absence of kidney; Z82.49 Family history of ischemic heart disease and other diseases of the circulatory system
CPT/HCPCS: 36415; 36430; 80048; 80053; 83735; 85025; 86850; 86870; 86900; 86901; 86902; 86920; 94760; 99285; A9270-GY; J0360; J1200; J2405; J7040; P9016

== ENCOUNTER 2017-12-16 10:30 | Emergency (ER) | payer MEDICARE ==
--- NOTE | 2017-12-16 11:35 | Emergency Department Report ---
ED Medical Clearance HPI - General Chief complaint: Weakness Stated complaint: DECREASE HEMOGLOBIN Time Seen by Provider: 12/16/17 11:17 Source: patient, EMS (ems notes not available at time of chart dictation), RN notes reviewed Mode of arrival: Stretcher Limitations: Physical Limitation - History of Present Illness Initial comments: This is a 62-year-old female whom I have evaluated in the past. Please see my medical record from 10/27/2017 for the full details of the patient's past medical history. Patient also seen and evaluated by outpatient/inpatient vascular surgery, who made specific recommendations, please see their consultation from her previous visit. The patient is sent to the ER from her dialysis clinic for evaluation of reported low hemoglobin, hematocrit. The patient denies hematemesis and bright red blood per rectum. She denies new pain, but endorses chronic total body pain, chronic weakness, which is not a new, worsening or different. MD Complaint: other Reason for Medical Clearance: laboratory abnormality Alledged Intoxication: No Compliant with Home Medications: Yes Traumatic Symptoms: denies traumatic injury Associated Symptoms: shortness of breath (chronic), weakness (chronic). denies : chest pain Home medications: Previous Rx's Medication Instructions Recorded Last Taken Type Acetaminophen [Acetaminophen TAB] 650 mg PO Q4H PRN tablet 09/18/17 Unknown Rx Nitroglycerin [Nitrostat] 0.4 mg SL .Q5MIN PRN tablet 09/18/17 Unknown Rx Aspirin [Aspirin BABY CHEW TAB] 81 mg PO QDAY #30 tab.chew 10/30/17 Unknown Rx Docusate Sodium [Colace CAP] 100 mg PO BID #60 capsule 10/30/17 Unknown Rx AtorvaSTATin [Lipitor] 80 mg PO QHS #30 tablet 12/03/17 Unknown Rx Famotidine [Pepcid] 20 mg PO QDAY #30 tablet 12/03/17 Unknown Rx ISOSORBIDE MONOnitrate [Imdur ER] 30 mg PO DAILY #30 tablet 12/03/17 Unknown Rx Megestrol [Megace] 20 mg PO BID #60 tablet 12/03/17 Unknown Rx Sevelamer Carbonate [Renvela] 1,200 mg PO TID #60 tablet 12/03/17 Unknown Rx Vit B Comp No.3/Folic/C/Biotin 1 each PO DAILY #30 tablet 12/03/17 Unknown Rx [Veneer Stock Grader-Romero Rx Tablet] amLODIPine [Norvasc] 5 mg PO QDAY #30 tablet 12/03/17 Unknown Rx Allergies/Adverse reactions: Allergies Allergy/AdvReac Type Severity Reaction Status Date / Time acetaminophen [From Percocet] Allergy Nausea Verified 10/04/17 13:51 cefazolin sodium [From Ancef] Allergy Rash Verified 05/25/13 08:00 lisinopril Allergy Angioedema Verified 02/25/17 20:06 oxycodone [From Percocet] Allergy Nausea Verified 10/04/17 13:51 Penicillins Allergy Rash Verified 05/25/13 08:00 phenytoin sodium Allergy Rash Verified 05/25/13 08:00 [From Dilantin] phenytoin sodium extended Allergy Rash Verified 05/25/13 08:00 [From Dilantin] Sulfa (Sulfonamide Allergy Rash Verified 05/25/13 08:00 Antibiotics) ED Review of Systems ROS: Stated complaint: DECREASE HEMOGLOBIN Other details as noted in HPI Constitutional: malaise. denies: fever Eyes: denies: eye discharge ENT: denies: epistaxis Respiratory: shortness of breath (chronic) Cardiovascular: edema (chronic) Gastrointestinal: denies: abdominal pain, melena, hematochezia Musculoskeletal: back pain, arthralgia, myalgia Neurological: weakness (chronic) ED Past Medical Hx - Past Medical History Previous Medical History?: Yes Hx Hypertension: Yes Hx Congestive Heart Failure: Yes Hx Diabetes: No Hx Renal Disease: Yes (dialysis M-W-F) Hx of Cancer: Yes (Cervical CA, no treatment at this time.) Hx Asthma: No Hx COPD: Yes - Surgical History Past Surgical History?: Yes Additional Surgical History: bilateral nephrectomy. permacath left chest - Social History Smoking Status: Former Smoker Substance Use Type: Alcohol - Medications Home Medications: Home Medications Medication Instructions Recorded Confirmed Last Taken Type Acetaminophen [Acetaminophen TAB] 650 mg PO Q4H PRN tablet 09/18/17 12/09/17 Unknown Rx Nitroglycerin [Nitrostat] 0.4 mg SL .Q5MIN PRN tablet 09/18/17 12/09/17 Unknown Rx Aspirin [Aspirin BABY CHEW TAB] 81 mg PO QDAY #30 tab.chew 10/30/17 12/09/17 Unknown Rx Docusate Sodium [Colace CAP] 100 mg PO BID #60 capsule 10/30/17 12/09/17 Unknown Rx AtorvaSTATin [Lipitor] 80 mg PO QHS #30 tablet 12/03/17 12/09/17 Unknown Rx Famotidine [Pepcid] 20 mg PO QDAY #30 tablet 12/03/17 12/09/17 Unknown Rx ISOSORBIDE MONOnitrate [Imdur ER] 30 mg PO DAILY #30 tablet 12/03/17 12/09/17 Unknown Rx Megestrol [Megace] 20 mg PO BID #60 tablet 12/03/17 12/09/17 Unknown Rx Sevelamer Carbonate [Renvela] 1,200 mg PO TID #60 tablet 12/03/17 12/09/17 Unknown Rx Vit B Comp No.3/Folic/C/Biotin 1 each PO DAILY #30 tablet 12/03/17 12/09/17 Unknown Rx [Vene[employer] Stock Grader-Romero Rx Tablet] amLODIPine [Norvasc] 5 mg PO QDAY #30 tablet 12/03/17 12/09/17 Unknown Rx ED Physical Exam - General Limitations: Physical Limitation General appearance: alert, in no apparent distress - Head Head exam: Present: atraumatic, normocephalic - Eye Eye exam: Present: normal appearance, EOMI. Absent: nystagmus - ENT ENT exam: Present: normal exam, normal orophraynx, mucous membranes moist, normal external ear exam - Neck Neck exam: Present: normal inspection, full ROM - Respiratory Respiratory exam: Present: decreased breath sounds. Absent: respiratory distress, wheezes, rales, rhonchi, stridor - Cardiovascular Cardiovascular Exam: Present: regular rate, normal rhythm, normal heart sounds, other (there is a left-sided thoracic vascular access catheter, without redness , pus, streaking or tenderness). Absent: bradycardia, tachycardia, irregular rhythm, systolic murmur, diastolic murmur, rubs, gallop - GI/Abdominal GI/Abdominal exam: Present: soft. Absent: distended, tenderness, guarding, rebound, rigid, pulsatile mass - Extremities Exam Extremities exam: Present: normal inspection, pedal edema, other (patient has chronic edema in the upper, lower extremities. Compartments soft.) - Back Exam Back exam: Present: normal inspection, full ROM. Absent: paraspinal tenderness , vertebral tenderness - Neurological Exam Neurological exam: Present: alert, oriented X3, CN II-XII intact, other ( Extraocular movements intact. Tongue midline. No facial droop. Facial sensation intact to light touch in the V1, V2, V3 distribution bilaterally. 5 and 5 strength in 4 extremities.. Sensation is intact to light touch in 4 extremities.). Absent: motor sensory deficit - Psychiatric Psychiatric exam: Present: normal affect, normal mood - Skin Skin exam: Present: warm, dry, intact, normal color. Absent: rash ED Course Vital Signs 12/16/17 12/16/17 12/16/17 10:47 10:58 11:00 Temperature 98.6 F Pulse Rate 91 H 91 H Respiratory 18 16 Rate Blood Pressure 115/66 123/70 O2 Sat by Pulse 98 100 100 Oximetry 12/16/17 12/16/17 11:06 11:16 Temperature Pulse Rate 96 H Respiratory 16 20 Rate Blood Pressure 115/66 O2 Sat by Pulse 100 100 Oximetry ED Medical Decision Making - Lab Data Result diagrams: 12/16/17 11:44 12/16/17 11:44 Vital Signs 12/16/17 12/16/17 12/16/17 10:47 10:58 11:00 Temperature 98.6 F Pulse Rate 91 H 91 H Respiratory 18 16 Rate Blood Pressure 115/66 123/70 O2 Sat by Pulse 98 100 100 Oximetry 12/16/17 12/16/17 11:06 11:16 Temperature Pulse Rate 96 H Respiratory 16 20 Rate Blood Pressure 115/66 O2 Sat by Pulse 100 100 Oximetry Lab Results 12/16/17 12/16/17 12/16/17 Range/Units 11:44 11:44 11:46 WBC 12.4 H (4.5-11.0) K/mm3 RBC 2.63 L (3.65-5.03) M/mm3 Hgb 6.9 L (10.1-14.3) gm/dl Hct 21.9 L (30.3-42.9) % MCV 84 (79-97) fl MCH 26 L (28-32) pg MCHC 32 (30-34) % RDW 19.5 H (13.2-15.2) % Plt Count 389 (140-440) K/mm3 Lymph % (Auto) 5.5 L (13.4-35.0) % [place] % (Auto) 6.9 (0.0-7.3) % Eos % (Auto) 0.7 (0.0-4.3) % Baso % (Auto) 0.5 (0.0-1.8) % Lymph # 0.7 L (1.2-5.4) K/mm3 [place] # 0.9 H (0.0-0.8) K/mm3 Eos # 0.1 (0.0-0.4) K/mm3 Baso # 0.1 (0.0-0.1) K/mm3 Seg Neutrophils % 86.4 H (40.0-70.0) % Seg Neutrophils # 10.7 H (1.8-7.7) K/mm3 PT 15.7 H (12.2-14.9) Sec. INR 1.20 H (0.87-1.13) APTT 37.2 H (24.2-36.6) Sec. Sodium 137 (137-145) mmol/L Potassium 3.9 (3.6-5.0) mmol/L Chloride 99.0 (98-107) mmol/L Carbon Dioxide 22 (22-30) mmol/L Anion Gap 20 mmol/L BUN < 1 L (7-17) mg/dL Creatinine 3.3 H (0.7-1.2) mg/dL Estimated GFR 17 ml/min BUN/Creatinine Ratio 0 % Glucose 77 (65-100) mg/dL Calcium 8.6 (8.4-10.2) mg/dL Magnesium (1.7-2.3) mg/dL Blood Type Antibody Screen Antibody Identification Crossmatch 12/16/17 12/16/17 Range/Units 11:46 11:46 WBC (4.5-11.0) K/mm3 RBC (3.65-5.03) M/mm3 Hgb (10.1-14.3) gm/dl Hct (30.3-42.9) % MCV (79-97) fl MCH (28-32) pg MCHC (30-34) % RDW (13.2-15.2) % Plt Count (140-440) K/mm3 Lymph % (Auto) (13.4-35.0) % [place] % (Auto) (0.0-7.3) % Eos % (Auto) (0.0-4.3) % Baso % (Auto) (0.0-1.8) % Lymph # (1.2-5.4) K/mm3 [place] # (0.0-0.8) K/mm3 Eos # (0.0-0.4) K/mm3 Baso # (0.0-0.1) K/mm3 Seg Neutrophils % (40.0-70.0) % Seg Neutrophils # (1.8-7.7) K/mm3 PT (12.2-14.9) Sec. INR (0.87-1.13) APTT (24.2-36.6) Sec. Sodium (137-145) mmol/L Potassium (3.6-5.0) mmol/L Chloride (98-107) mmol/L Carbon Dioxide (22-30) mmol/L Anion Gap mmol/L BUN (7-17) mg/dL Creatinine (0.7-1.2) mg/dL Estimated GFR ml/min BUN/Creatinine Ratio % Glucose (65-100) mg/dL Calcium (8.4-10.2) mg/dL Magnesium 2.30 (1.7-2.3) mg/dL Blood Type B POSITIVE Antibody Screen Positive Antibody Identification Anti-K Crossmatch See Detail - Medical Decision Making Differential diagnosis, including but not limited to: End-stage renal disease, hyperkalemia, anemia of chronic disease, acute on chronic anemia Assessment and plan: 62-year-old female who is sent to the ER for reported low hemoglobin, hematocrit. Hemoglobin today 6.9, hematocrit 21.7. The patient does not have any significant medical complaints. She has chronic pain which is not a new, worsening or different. She is observed in the ER for hours without decompensation. I have spoken to her junk removal specialist, Dr. Bills, who is going to arrange outpatient transfusion tomorrow, at the [facility]. Given her hemodynamic stability, her chronic nature of this problem, her lack of obvious/objective evidence of hemorrhage, patient is medically suitable to follow up for outpatient transfusion. ED Disposition Clinical Impression: ESRD (end stage renal disease), Anemia secondary to renal failure Disposition: TO HOME OR SELFCARE Is pt being admited?: No Does the pt Need Aspirin: No Condition: Stable Instructions: Chronic Kidney Disease (ED) Additional Instructions: Continue current outpatient medications. follow up tomorrow at the [facility] as scheduled by her private junk removal specialist for outpatient blood transfusion. Return to the ER right away with new pain, worsened pain, migration of pain, projectile vomiting, change in mental status, confusion, inability to tolerate liquid feeds. Referrals: PRIMARY CARE, [Primary Care Provider] - 3-5 Days LESTER KITCHEN MD [Staff Physician] - 3-5 Days
[2017-12-16 11:58] LABS: Basophils # (Auto) 0.1 K/mm3 (0.0-0.1); Basophils % (Auto) 0.5 % (0.0-1.8); Eosinophils # (Auto) 0.1 K/mm3 (0.0-0.4); Eosinophils % (Auto) 0.7 % (0.0-4.3); Hematocrit 21.9 % (30.3-42.9); Hemoglobin 6.9 gm/dl (10.1-14.3); Lymphocytes # (Auto) 0.7 K/mm3 (1.2-5.4); Lymphocytes % (Auto) 5.5 % (13.4-35.0); Mean Corpuscular HGB Conc 32 % (30-34); Mean Corpuscular Hemoglobin 26 pg (28-32); Mean Corpuscular Volume 84 fl (79-97); Monocytes # (Auto) 0.9 K/mm3 (0.0-0.8); Monocytes % (Auto) 6.9 % (0.0-7.3); Platelet Count 389 K/mm3 (140-440); Red Blood Count 2.63 M/mm3 (3.65-5.03); Red Cell Distribution Width 19.5 % (13.2-15.2)
[2017-12-16 12:11] LABS: Calcium 8.6 mg/dL (8.4-10.2); Hemolysis Index 3
[2017-12-16 12:15] LABS: INR 1.2 (0.87-1.13); Partial Thromboplastin Time 37.2 Sec. (24.2-36.6)
[2017-12-16 12:20] LABS: BUN/Creatinine Ratio 0
[2017-12-16 12:21] LABS: Blood Urea Nitrogen < 1 mg/dL (7-17)
[2017-12-16 16:12] VITALS: BP 128/76
== END 2017-12-16 16:07 | disposition home or self-care (01) ==
LOC: ED 10:30
DX: I12.0 Hypertensive chronic kidney disease with stage 5 chronic kidney disease or end stage renal disease (principal); N18.6 End stage renal disease; D63.1 Anemia in chronic kidney disease; I11.0 Hypertensive heart disease with heart failure; I50.9 Heart failure, unspecified; J44.9 Chronic obstructive pulmonary disease, unspecified; Z87.891 Personal history of nicotine dependence; Z99.2 Dependence on renal dialysis; Z85.41 Personal history of malignant neoplasm of cervix uteri; Z88.0 Allergy status to penicillin; Z88.2 Allergy status to sulfonamides; Z88.8 Allergy status to other drugs, medicaments and biological substances; Z79.82 Long term (current) use of aspirin; Z79.899 Other long term (current) drug therapy
CPT/HCPCS: 36415; 80048; 83735; 85025; 85610; 85730; 86850; 86870; 86900; 86901; 86902; 86922; 93005; 93010; 99284

== ENCOUNTER 2018-01-06 10:04 | Inpatient (IN) | payer MEDICARE ==
[2018-01-06] MEDS ORDERED: NACL 0.9% 100 ML IV PRN (14:35)
[2018-01-06] MEDS ORDERED: ALBURX 25% (ALBUMIN) IV PRN (14:35)
[2018-01-06] MEDS ORDERED: ZOFRAN IV PRN ×2 (15:14→22:36)
[2018-01-06] MEDS ORDERED: PERCOCET 5/325 PO PRN ×2 (15:14→22:36)
[2018-01-06] MEDS ORDERED: SODIUM CHLORIDE FLUSH SYRINGE 10 ML IV PRN ×2 (15:14→22:36)
[2018-01-06] MEDS ORDERED: TYLENOL PO PRN ×3 (15:14→22:36)
[2018-01-06] MEDS ORDERED: DILAUDID IV PRN (15:14)
--- NOTE | 2018-01-06 15:23 | XRay Report ---
AP CHEST: HISTORY: Fluid overload Mild improvement in pulmonary venous congestion is demonstrated since 12/06/17. Cardiomegaly and moderate bilateral pleural effusions appear relatively stable. There are mild atelectatic changes at the lung bases but no obvious infiltrate. Left IJ dialysis catheter remains in good position. No pneumothorax. IMPRESSION: CHF/volume overload, slightly improved since 12/06/17.
[2018-01-06] MEDS: PEPCID PO SCH ×2 (16:00→21:37)
[2018-01-06] MEDS ORDERED: NACL 0.9 (PRIMING MACHINE ONLY DIALYSIS) MC ONE (16:18)
[2018-01-06] MEDS: PROCRIT IV PRN (16:36)
[2018-01-06] MEDS: MORPHINE IV PRN (16:37)
[2018-01-06 20:43] LABS: Basophils % (Auto) 0.3 % (0.0-1.8); Eosinophils # (Auto) 0.1 K/mm3 (0.0-0.4); Eosinophils % (Auto) 1.1 % (0.0-4.3); Hematocrit 26.6 % (30.3-42.9); Hemoglobin 8.5 gm/dl (10.1-14.3); Lymphocytes # (Auto) 0.5 K/mm3 (1.2-5.4); Lymphocytes % (Auto) 4.1 % (13.4-35.0); Mean Corpuscular HGB Conc 32 % (30-34); Mean Corpuscular Hemoglobin 27 pg (28-32); Mean Corpuscular Volume 84 fl (79-97); Monocytes # (Auto) 1.2 K/mm3 (0.0-0.8); Monocytes % (Auto) 8.9 % (0.0-7.3); Platelet Count 337 K/mm3 (140-440); Red Blood Count 3.19 M/mm3 (3.65-5.03)
[2018-01-06 20:45] LABS: Red Cell Distribution Width 20.9 % (13.2-15.2)
[2018-01-06 20:58] LABS: Albumin 2.7 g/dL (3.9-5)
[2018-01-06] MEDS ORDERED: SODIUM CHLORIDE FLUSH SYRINGE 10 ML IV SCH (22:00)
--- NOTE | 2018-01-06 22:48 | Event Note ---
Date: 01/06/18 See dictated history and physical and the reports CHF exacerbation Volume overload End-stage renal disease Hypertension Stage IV cervical cancer
[2018-01-06] MEDS ORDERED: APRESOLINE IV PRN (22:49)
--- NOTE | 2018-01-06 23:09 | History and Physical Report ---
CHIEF COMPLAINT: Increasing shortness of breath for 1 day. HISTORY OF PRESENT ILLNESS: A 62-year-old black female with history of cervical cancer stage 4 with lymph nodes in the neck, hypertension, COPD, and end-stage renal disease, sent from the dialysis clinic for increasing shortness of breath. The patient was unable to receive the complete dialysis for the last 2 sessions. The patient is being admitted because of the increased shortness of breath and unable to dialysis in the dialysis clinic. No chest pain. Orthopnea present. Exacerbating factors are missed dialysis, relieving factors are complete dialysis and less fluid intake. PAST MEDICAL HISTORY: As mentioned, ovarian cancer stage 4, COPD, CHF, end-stage renal disease, and hypertension. PAST SURGICAL HISTORY: Bilateral nephrectomy and a Perm-A-Cath. SOCIAL HISTORY: and lives with family. Denies smoking, alcohol abuse, and prescription drug abuse. FAMILY HISTORY: Hypertension. CURRENT MEDICATIONS: On the chart. REVIEW OF SYSTEMS: Significant for increasing shortness of breath and orthopnea. No PND attacks. No chest pain. Otherwise, 14-point review of systems negative. Occasional vaginal bleeding. PHYSICAL EXAMINATION: GENERAL: Elderly female lying in bed, face swollen. VITAL SIGNS: Blood pressure is 194/55, temperature is 97.2, pulse is 102, respirations are 18. HEENT: Unremarkable. Lips are swollen. Face is swollen. Pupils are equal and reactive. NECK: Supple, no lymphadenopathy, no thyromegaly. LUNGS: Clear to auscultation and percussion. Good air entry. CARDIOVASCULAR: S1, S2 heard. No gallop, no murmur, no rub. Apical impulse in left fifth intercostal space and midclavicular line. ABDOMEN: Soft and benign. No hepatosplenomegaly. No guarding, no rigidity. Hernial orifices are normal. EXTREMITIES: Pedal edema present, 2+ pedal edema. CENTRAL NERVOUS SYSTEM: Alert and oriented x 4, nonfocal exam. LABORATORY DATA: Significant for white count of 13,200, H and H of 8.5 and 26.6, platelet count of 337,000. Sodium is 135, potassium is 4.3, chloride is 95.9, BUN and creatinine 35 and 4.9. Albumin is low at 2.7, alkaline phosphatase is 177. Chest x-ray shows CHF/volume overload, slightly improved since 12/06/2017. EKG was not done. ASSESSMENT AND PLAN: 1. Congestive heart failure exacerbation with diastolic heart failure secondary to volume overload. Control the volume. BNP ordered. Increased ultrafiltration if possible. 2. Volume overload. Continue dialysis and volume overload to be removed. Increased ultrafiltration. The patient may need dialysis every day. Nephrology consulted. 3. Hypertension. Continue antihypertensives. The patient on amlodipine. 4. Hyperlipidemia. Continue atorvastatin 40 mg daily. 5. Gastroesophageal reflux disease. Continue famotidine 20 mg once a day. 6. Coronary artery disease. Continue isosorbide mononitrate, Imdur 30 mg daily. 7. Cervical cancer, stage 4. The patient to follow up with Oncology. We will consult Heme/Onc if necessary. 8. Deep venous thrombosis prophylaxis. Continue heparin 5000 q. 12h. 9. Cervical lymphadenopathy secondary to cervical cancer. 10. Anemia, chronic. The patient may need Epogen. We will defer to Nephrology. JOB# [id number] VSM/NTS
[2018-01-07] MEDS: HEPARIN SUB-Q SCH ×2 (01:08→22:58)
--- NOTE | 2018-01-07 08:44 | Consultation ---
History of Present Illness - Reason for Consult Consult date: 01/07/18 end stage renal disease Requesting physician: JUDY QURESHI - History of Present Illness 62-year-old lady was well known to me with history of end-stage renal disease on hemodialysis on a Saturday, Wednesdays, Fridays schedule. Patient was recently diagnosed with cervical cancer. She was referred to see BUSINESS SUPPORT ADMINISTRATOR oncologist and she did see once but has not gone back to follow up. She says she has a new primary care physician who has referred her to see another oncologist. This has been going on for a few months now. She has not started any treatment for cervical cancer due to noncompliance with appointments. She has been hospitalized numerous times with severe anemia secondary to vaginal bleeding or fluid overload. She says she has not had any bleeding since she left [facility] where she was recently admitted and received packed red blood cell transfusions. Patient has been having difficulty completing dialysis treatments as she developed cramping as they tried to take off fluid on dialysis. On account of this she's been developing worsening swelling and shortness of breath. She went to dialysis on the day of presentation and after about an hour she was feeling worse with shortness of breath and so she was sent to the hospital for further evaluation. She also complains of lower abdominal pain she describes as a nonradiating dull ache transently relieved with pain medications and Tylenol. Past History Past Medical History: cancer (Cervical Cancer), COPD, ESRD, heart failure, hypertension, hyperlipidemia, other Past Surgical History: Other (bilateral nephrectomy, Permacath placement) Social history: , lives with family, other (lives wit her ). denies: smoking, alcohol abuse, prescription drug abuse, IV drug use Family history: hypertension, other (father had end-stage renal disease was on hemodialysis) Medications and Allergies Allergies Allergy/AdvReac Type Severity Reaction Status Date / Time acetaminophen [From Percocet] Allergy Nausea Verified 10/04/17 13:51 cefazolin sodium [From Ancef] Allergy Rash Verified 05/25/13 08:00 lisinopril Allergy Angioedema Verified 02/25/17 20:06 oxycodone [From Percocet] Allergy Nausea Verified 10/04/17 13:51 Penicillins Allergy Rash Verified 05/25/13 08:00 phenytoin sodium Allergy Rash Verified 05/25/13 08:00 [From Dilantin] phenytoin sodium extended Allergy Rash Verified 05/25/13 08:00 [From Dilantin] Sulfa (Sulfonamide Allergy Rash Verified 05/25/13 08:00 Antibiotics) Home Medications Medication Instructions Recorded Confirmed Last Taken Type Acetaminophen [Acetaminophen TAB] 650 mg PO Q4H PRN tablet 09/18/17 01/07/18 Unknown Rx Nitroglycerin [Nitrostat] 0.4 mg SL .Q5MIN PRN tablet 09/18/17 01/07/18 Unknown Rx Aspirin [Aspirin BABY CHEW TAB] 81 mg PO QDAY #30 tab.chew 10/30/17 01/07/18 Unknown Rx Docusate Sodium [Colace CAP] 100 mg PO BID #60 capsule 10/30/17 01/07/18 Unknown Rx AtorvaSTATin [Lipitor] 80 mg PO QHS #30 tablet 12/03/17 01/07/18 Unknown Rx Famotidine [Pepcid] 20 mg PO QDAY #30 tablet 12/03/17 01/07/18 Unknown Rx ISOSORBIDE MONOnitrate [Imdur ER] 30 mg PO DAILY #30 tablet 12/03/17 01/07/18 Unknown Rx Megestrol [Megace] 20 mg PO BID #60 tablet 12/03/17 01/07/18 Unknown Rx Sevelamer Carbonate [Renvela] 1,200 mg PO TID #60 tablet 12/03/17 01/07/18 Unknown Rx Vit B Comp No.3/Folic/C/Biotin 1 each PO DAILY #30 tablet 12/03/17 01/07/18 Unknown Rx [Woodyard Operator-Romero Rx Tablet] amLODIPine [Norvasc] 5 mg PO QDAY #30 tablet 12/03/17 01/07/18 Unknown Rx HYDROcodone/APAP 10-325 [[place] 1 each PO TID PRN 01/07/18 01/07/18 01/05/18 History 10/325] Active Meds: Active Medications Acetaminophen (Tylenol) 650 mg PO Q4H PRN PRN Reason: Pain MILD(1-3)/Fever >100.5/DURAND Albumin Human ([place]x 25% (Albumin)) 25 gm IV IVONNE PRN PRN Reason: Hypotension Amlodipine Besylate (Norvasc) 5 mg PO QDAY LANEY Aspirin (Baby Aspirin) 81 mg PO QDAY LANEY Atorvastatin Calcium (Lipitor) 80 mg PO QHS [facility] Docusate Sodium (Colace) 100 mg PO BID [facility] Epoetin Mustapha (Procrit) 10,000 unit IV IVONNE PRN PRN Reason: hemodialysis Last Admin: 01/06/18 16:36 Dose: 10,000 unit Famotidine (Pepcid) 20 mg PO QDAY [facility] Heparin Sodium (Porcine) (Heparin) 5,000 unit SUB-Q Q12HR [facility] Last Admin: 01/07/18 01:08 Dose: 5,000 unit Hydralazine HCl (Apresoline) 10 mg IV Q3H PRN PRN Reason: Hypertension Hydromorphone HCl (Dilaudid) 0.5 mg IV Q3H PRN PRN Reason: Pain , Severe (7-10) Last Admin: 01/06/18 21:37 Dose: 0.5 mg Sodium Chloride (Nacl 0.9%) 100 mls @ 999 mls/hr IV IVONNE PRN PRN Reason: Hypotension Isosorbide Mononitrate (Imdur) 30 mg PO DAILY [facility] Megestrol Acetate (Megace) 20 mg PO BID [facility] Morphine Sulfate (Morphine) 2 mg IV Q4H PRN PRN Reason: Pain, Moderate (4-6) Last Admin: 01/06/18 16:37 Dose: 2 mg Multivit/Ca Carb/B Cmplx/FA/Prenat (Renal Caps) 1 cap PO QDAY [facility] Ondansetron HCl (Zofran) 4 mg IV Q8H PRN PRN Reason: Nausea And Vomiting Oxycodone/Acetaminophen (Percocet 5/325) 1 tab PO Q6H PRN PRN Reason: Pain, Moderate (4-6) Sevelamer Carbonate (Renvela) 1,200 mg PO TIDWM [facility] Sodium Chloride (Sodium Chloride Flush Syringe 10 Ml) 10 ml IV BID [facility] Last Admin: 01/06/18 21:38 Dose: 10 ml Sodium Chloride (Sodium Chloride Flush Syringe 10 Ml) 10 ml IV PRN PRN PRN Reason: LINE FLUSH Review of Systems All systems: negative (Constitutional: no fever or chills. No anorexia or weight loss. HEENT: No sore throat or sinus drainage no hearing or vision impairment . Cardiovascular: See history of present illness. Respiratory: Admits to cough which is nonproductive. No hemoptysis or wheezing. Gastrointestinal: No nausea, vomiting, diarrhea, admits to constipation and lower abdominal pain. No matemesis or melena. Genitourinary: She no longer makes urine. hematologic: No abnormal bleeding except for vaginal bleeding or bruising. Integumentary: Admits to itching but denies rash. Neurological: No headache no focal weakness or numbness, no syncope or seizures. Musculoskeletal : No joint pains no stiffness. Psychiatry: Admits to anxiety and sometimes depression she felt delirious with her medication) Exam - Vital Signs Vital signs: Vital Signs Resp 22 01/06/18 11:43 - Physical Exam Narrative exam: Frail elderly -[place] female lying in bed in no acute distress, on oxygen Via [place] HEENT: NCAT, pink oral mucous membrane Neck: Swollen with distended veins, Supple, left IJ permacath CVS: S1S2 RRR with no murmur, rub or gallop Chest: Diminished breath sounds bilaterally, no rales or rhonchi Abdomen: Protuberant, soft, nontender, no organomegaly, bowel sounds are present Extremities: Bilateral most routine edema 2-3+ pitting with thickened skin, left upper extremity edema at least 3+ and right upper extremity 1 to 2 + Genitourinary deferred Skin: Scaly in the legs with hyperpigmentation Neuro: Awake, alert no focal deficits Results - Lab Results 01/06/18 20:12 01/06/18 20:12 Most recent lab results Calcium 10.0 mg/dL (8.4-10.2) 01/06/18 20:12 Assessment and Plan - Patient Problems (1) Anemia secondary to renal failure Current Visit: No Status: Acute Plan to address problem: Give Erythropoetin on dialysis and follow-up hemoglobin (2) End-stage renal disease needing dialysis Current Visit: No Status: Acute Plan to address problem: Daily Dialysis alternating hemodialysis with isolated ultrafiltration to help with fluid removal. (3) Fluid overload Current Visit: No Status: Acute Plan to address problem: Daily Dialysis for fluid removal (4) Superior vena cava syndrome Current Visit: No Status: Acute Plan to address problem: Follow-up with vascular surgeon (5) Hypertensive chronic kidney disease with stage 5 chronic kidney disease or end stage renal disease Current Visit: No Status: Chronic Plan to address problem: Follow-up blood pressure on current Medications (6) Primary cervical cancer with metastasis to other site Current Visit: No Status: Chronic Plan to address problem: Follow-up with BUSINESS SUPPORT ADMINISTRATOR oncologist
[2018-01-07] MEDS ORDERED: IMDUR PO SCH (10:00)
[2018-01-07] MEDS ORDERED: BABY ASPIRIN PO SCH (10:00)
[2018-01-07] MEDS ORDERED: NORVASC PO SCH (10:00)
[2018-01-07] MEDS ORDERED: Renal Caps PO SCH (10:00)
[2018-01-07] MEDS ORDERED: SODIUM CHLORIDE FLUSH SYRINGE 10 ML IV SCH (10:00)
[2018-01-07] MEDS ORDERED: [UNRECOGNIZED DRUG - REMARK] PO SCH (10:00)
[2018-01-07] MEDS: MORPHINE IV PRN (10:09)
[2018-01-07] MEDS ORDERED: NORCO 10/325 PO PRN (10:28)
[2018-01-07] MEDS ORDERED: NACL 0.9 (PRIMING MACHINE ONLY DIALYSIS) MC ONE ×2 (12:07→13:39)
[2018-01-07] MEDS: PROCRIT IV PRN (12:20)
[2018-01-07] MEDS: PEPCID PO SCH (14:22)
[2018-01-07] MEDS: RENVELA PO SCH (14:23)
[2018-01-07] MEDS: COLACE PO SCH ×2 (14:24→22:57)
[2018-01-07] MEDS: MEGACE PO SCH ×2 (14:25→22:57)
[2018-01-08] MEDS: RENVELA PO SCH (08:59)
[2018-01-08] MEDS: PEPCID PO SCH (09:08)
[2018-01-08] MEDS ORDERED: PROCRIT ONE (13:03)
[2018-01-08 13:51] VITALS: BP 99/65
--- NOTE | 2018-01-08 14:24 | Progress Note ---
Assessment and Plan - Patient Problems (1) End-stage renal disease needing dialysis Current Visit: No Status: Acute Plan to address problem: Daily Dialysis alternating hemodialysis with isolated ultrafiltration to help with fluid removal. After today's dialysis, Patient can be discharged home and will follow perioperatively outpatient clinic on Saturday and do an extra dialysis on Saturday for fluid removal. Rest patient tomorrow (2) Anemia secondary to renal failure Current Visit: No Status: Acute Plan to address problem: Give Erythropoetin on dialysis and follow-up hemoglobin (3) Fluid overload Current Visit: No Status: Acute Plan to address problem: Daily Dialysis for fluid removal (4) Superior vena cava syndrome Current Visit: No Status: Acute Plan to address problem: Follow-up with vascular surgeon (5) Hypertensive chronic kidney disease with stage 5 chronic kidney disease or end stage renal disease Current Visit: No Status: Chronic Plan to address problem: Follow-up blood pressure on current Medications (6) Primary cervical cancer with metastasis to other site Current Visit: No Status: Chronic Plan to address problem: Follow-up with [facility] oncologist Subjective Date of service: 01/08/18 Principal diagnosis: end-stage renal disease Interval history: Patient seen lying in bed on dialysis. She feels better now. Shortness of breath has improved. Blood pressure 96/64 pulse 85 ultrafiltration 3.5 L Objective - Exam Narrative Exam: Frail elderly -[place] female lying in bed in no acute distress, HEENT: NCAT, pink oral mucous membrane Neck: Swollen with distended veins, Supple, left IJ permacath CVS: S1S2 RRR with no murmur, rub or gallop Chest: Diminished breath sounds bilaterally, no rales or rhonchi Abdomen: Protuberant, soft, nontender, no organomegaly, bowel sounds are present Extremities: Bilateral lower extremity edema 2+ pitting with thickened skin, left upper extremity edema at least 2+ and right upper extremity 1 to 2 + Genitourinary deferred Skin: Scaly in the legs with hyperpigmentation Neuro: Awake, alert no focal deficits - Vital Signs Vital signs: Vital Signs - 12hr 01/08/18 01/08/18 01/08/18 05:13 05:14 05:20 Temperature Pulse Rate 52 L Respiratory Rate Blood Pressure 186/66 108/62 146/67 Blood Pressure [Left] O2 Sat by Pulse 100 Oximetry 01/08/18 01/08/18 01/08/18 05:49 07:10 07:38 Temperature 98.2 F 99.2 F Pulse Rate 84 86 90 Respiratory 18 20 Rate Blood Pressure 107/70 Blood Pressure 121/68 [Left] O2 Sat by Pulse 100 Oximetry 01/08/18 01/08/18 01/08/18 09:30 09:45 10:00 Temperature 98.7 F Pulse Rate 87 87 86 Respiratory 20 Rate Blood Pressure 125/70 128/72 103/70 Blood Pressure [Left] O2 Sat by Pulse Oximetry 01/08/18 01/08/18 01/08/18 10:15 10:30 13:00 Temperature 98.5 F Pulse Rate 87 89 89 Respiratory 20 Rate Blood Pressure 92/64 170/70 99/65 Blood Pressure [Left] O2 Sat by Pulse Oximetry - Lab 01/06/18 20:12 01/06/18 20:12 Most recent lab results Calcium 10.0 mg/dL (8.4-10.2) 01/06/18 20:12
--- NOTE | 2018-01-08 18:23 | Progress Note ---
Assessment and Plan - Patient Problems (1) Acute exacerbation of CHF (congestive heart failure) Current Visit: Yes Status: Acute Qualifiers: Heart failure type: combined systolic and diastolic Qualified Code(s): I50.43 - Acute on chronic combined systolic (congestive) and diastolic ( congestive) heart failure Plan to address problem: increased ultrafiltration HD (2) DVT prophylaxis Current Visit: No Status: Acute (3) Hx of past noncompliance Current Visit: No Status: Chronic Plan to address problem: Counselled (4) Volume overload Current Visit: Yes Status: Acute Plan to address problem: increased HD (5) HTN (hypertension) Current Visit: Yes Status: Chronic Qualifiers: Hypertension type: essential hypertension Qualified Code(s): I10 - Essential (primary) hypertension Plan to address problem: Cont antihypertensives (6) HLD (hyperlipidemia) Current Visit: Yes Status: Chronic Qualifiers: Hyperlipidemia type: mixed hyperlipidemia Qualified Code(s): E78.2 - Mixed hyperlipidemia Plan to address problem: Cont statins (7) GERD (gastroesophageal reflux disease) Current Visit: Yes Status: Chronic Qualifiers: Esophagitis presence: without esophagitis Qualified Code(s): K21.9 - Gastro -esophageal reflux disease without esophagitis Plan to address problem: Cont H2 blockers/PPI (8) Cervical cancer Current Visit: Yes Status: Chronic Qualifiers: Malignant neoplasm of cervix location: endocervix Qualified Code(s): C53.0 - Malignant neoplasm of endocervix Plan to address problem: F/u with oncologist (9) DVT prophylaxis Current Visit: Yes Status: Acute Plan to address problem: on Heparin Subjective Date of service: 01/08/18 Principal diagnosis: end-stage renal disease Interval history: Sx better Objective - Constitutional Vitals: Vital Signs - 12hr 01/08/18 01/08/18 01/08/18 07:10 07:38 09:30 Temperature 99.2 F 98.7 F Pulse Rate 86 90 87 Respiratory 20 20 Rate Blood Pressure 107/70 125/70 O2 Sat by Pulse 100 Oximetry 01/08/18 01/08/18 01/08/18 09:45 10:00 10:15 Temperature Pulse Rate 87 86 87 Respiratory Rate Blood Pressure 128/72 103/70 92/64 O2 Sat by Pulse Oximetry 01/08/18 01/08/18 10:30 13:00 Temperature 98.5 F Pulse Rate 89 89 Respiratory 20 Rate Blood Pressure 170/70 99/65 O2 Sat by Pulse Oximetry General appearance: Present: mild distress, well-nourished - EENT Eyes: PERRL, EOM intact ENT: hearing intact, clear oral mucosa Ears: bilateral: normal - Neck Neck: supple, normal ROM - Respiratory Respiratory effort: normal Respiratory: bilateral: diminished, rales - Breasts Breasts: normal - Cardiovascular Rhythm: regular Heart Sounds: Present: S1 & S2. Absent: gallop, rub Extremities: pulses intact, No edema, normal color, Full ROM - Gastrointestinal General gastrointestinal: Present: soft, non-tender, non-distended, normal bowel sounds - Genitourinary Female genitourinary: normal - Integumentary Integumentary: clear, warm, dry - Musculoskeletal Musculoskeletal: 1, strength equal bilaterally - Neurologic Neurologic: moves all extremities - Psychiatric Psychiatric: memory intact, appropriate mood/affect, intact judgment & insight - Labs CBC & Chem 7: 01/06/18 20:12 01/06/18 20:12
--- NOTE | 2018-01-08 18:33 | Discharge Summary ---
Providers - Providers Date of Admission: 01/06/18 11:16 Date of discharge: 01/08/18 Attending physician: JUDY QURESHI 01/06/18 11:37 Consult to Physician [CONS] Routine Comment: Consulting Provider: ALEXANDER IRIZARRY Physician Instructions: Reason For Exam: FLUID OVERLOAD, ESRD Primary care physician: ALEXANDER IRIZARRY Hospitalization Hospital course: ssessment and Plan - Patient Problems (1) Acute exacerbation of CHF (congestive heart failure) Current Visit: Yes Status: Acute Qualifiers: Heart failure type: combined systolic and diastolic Qualified Code(s): I50.43 - Acute on chronic combined systolic (congestive) and diastolic ( congestive) heart failure Plan to address problem: increased ultrafiltration Had HD multiple times (2) Hx of past noncompliance Current Visit: No Status: Chronic Plan to address problem: Counselled (4) Volume overload Current Visit: Yes Status: Acute Plan to address problem: increased HD (5) HTN (hypertension) Current Visit: Yes Status: Chronic Qualifiers: Hypertension type: essential hypertension Qualified Code(s): I10 - Essential (primary) hypertension Plan to address problem: Cont antihypertensives (6) HLD (hyperlipidemia) Current Visit: Yes Status: Chronic Qualifiers: Hyperlipidemia type: mixed hyperlipidemia Qualified Code(s): E78.2 - Mixed hyperlipidemia Plan to address problem: Cont statins (7) GERD (gastroesophageal reflux disease) Current Visit: Yes Status: Chronic Qualifiers: Esophagitis presence: without esophagitis Qualified Code(s): K21.9 - Gastro -esophageal reflux disease without esophagitis Plan to address problem: Cont H2 blockers/PPI (8) Cervical cancer Current Visit: Yes Status: Chronic Qualifiers: Malignant neoplasm of cervix location: endocervix Qualified Code(s): C53.0 - Malignant neoplasm of endocervix Plan to address problem: F/u with oncologist Disposition: - TO HOME OR SELFCARE - Discharge Diagnoses (1) Acute exacerbation of CHF (congestive heart failure) Status: Acute Qualifiers: Heart failure type: combined systolic and diastolic Qualified Code(s): I50.43 - Acute on chronic combined systolic (congestive) and diastolic ( congestive) heart failure (2) DVT prophylaxis Status: Acute (3) Hx of past noncompliance Status: Chronic (4) Volume overload Status: Acute (5) HTN (hypertension) Status: Chronic Qualifiers: Hypertension type: essential hypertension Qualified Code(s): I10 - Essential (primary) hypertension (6) HLD (hyperlipidemia) Status: Chronic Qualifiers: Hyperlipidemia type: mixed hyperlipidemia Qualified Code(s): E78.2 - Mixed hyperlipidemia (7) GERD (gastroesophageal reflux disease) Status: Chronic Qualifiers: Esophagitis presence: without esophagitis Qualified Code(s): K21.9 - Gastro -esophageal reflux disease without esophagitis (8) Cervical cancer Status: Chronic Qualifiers: Malignant neoplasm of cervix location: endocervix Qualified Code(s): C53.0 - Malignant neoplasm of endocervix (9) DVT prophylaxis Status: Acute Core Measure Documentation - Palliative Care Palliative Care/ Comfort Measures: Not Applicable - Core Measures Any of the following diagnoses?: none Exam - Constitutional Vitals: Temp Pulse Resp BP Pulse Ox 98.5 F 89 20 99/65 100 01/08/18 13:00 01/08/18 13:00 01/08/18 13:00 01/08/18 13:00 01/08/18 07:38 General appearance: Present: no acute distress, well-nourished - EENT Eyes: Present: PERRL ENT: hearing intact, clear oral mucosa - Neck Neck: Present: supple, normal ROM - Respiratory Respiratory effort: normal Respiratory: bilateral: CTA - Cardiovascular Heart Sounds: Present: S1 & S2. Absent: rub, click - Extremities Extremities: pulses symmetrical, No edema Peripheral Pulses: within normal limits - Abdominal General gastrointestinal: Present: soft, non-tender, non-distended, normal bowel sounds Female genitourinary: Present: normal - Integumentary Integumentary: Present: clear, warm, dry - Musculoskeletal Musculoskeletal: gait normal, strength equal bilaterally - Psychiatric Psychiatric: appropriate mood/affect, intact judgment & insight - Neurologic Neurologic: CNII-XII intact, moves all extremities Plan Diet: renal Follow up with: ALEXANDER IRIZARRY MD [Primary Care Provider] - 7 Days
== END 2018-01-08 20:36 | disposition home health service (06) | DRG 291 ==
LOC: 4A 10:04 → UNDOADMIN 10:04 → 4A 11:16 → 3A 01-08 13:45
PROVIDERS: ADMIT Internal Medicine; ATTEND Internal Medicine
PROC: 5A1D70Z Performance of Urinary Filtration, Intermittent, Less than 6 Hours Per Day (ICD-10-PCS; principal; 2018-01-06)
PROC: 5A1D70Z Performance of Urinary Filtration, Intermittent, Less than 6 Hours Per Day (ICD-10-PCS; 2018-01-07)
PROC: 5A1D70Z Performance of Urinary Filtration, Intermittent, Less than 6 Hours Per Day (ICD-10-PCS; 2018-01-08)
DX: I13.2 Hypertensive heart and chronic kidney disease with heart failure and with stage 5 chronic kidney disease, or end stage renal disease (principal); N18.6 End stage renal disease; I50.43 Acute on chronic combined systolic (congestive) and diastolic (congestive) heart failure; I87.1 Compression of vein; C79.89 Secondary malignant neoplasm of other specified sites; I25.10 Atherosclerotic heart disease of native coronary artery without angina pectoris; D63.8 Anemia in other chronic diseases classified elsewhere; C53.0 Malignant neoplasm of endocervix; E78.5 Hyperlipidemia, unspecified; R59.0 Localized enlarged lymph nodes; D64.9 Anemia, unspecified; K21.9 Gastro-esophageal reflux disease without esophagitis; Z99.2 Dependence on renal dialysis; Z84.1 Family history of disorders of kidney and ureter; Z90.5 Acquired absence of kidney; Z82.49 Family history of ischemic heart disease and other diseases of the circulatory system; Z88.6 Allergy status to analgesic agent; Z88.0 Allergy status to penicillin; Z88.2 Allergy status to sulfonamides; Z88.8 Allergy status to other drugs, medicaments and biological substances
CPT/HCPCS: 36415; 71045; 80053; 83036; 83880; 85025; 87116; A9270-GY; J0885; J1170; J1644; J2270; J7030